=== PATIENT | male | born 1980 | race Hispanic/Latino ===

== ENCOUNTER 2017-02-03 12:33 | Emergency (ER) | payer SELFPAY ==
[2017-02-03] MEDS ORDERED: CLEOCIN 600 MG/50 mL 600 MG/50 ML BAG IV ONE (14:37)
--- NOTE | 2017-02-03 14:40 | Emergency Department Report ---
- General Chief Complaint: Dental/Oral Stated Complaint: SORE THROAT/MIKE Time Seen by Provider: 02/03/17 14:14 Source: patient, family Mode of arrival: Ambulatory Limitations: No Limitations - History of Present Illness MD Complaint: sore throat -: Sudden Severity: moderate Consistency: constant Improves With: nothing Worsens With: nothing Associated Symptoms: sore throat, shortness of breath (asthma ), hoarseness ( quiet per ). denies: fever, chills, myalgias, diaphoresis, headache, rhinorrhea, nasal congestion, stiff neck, cough, chest pain, abdominal pain, nausea, vomiting, diarrhea, dysuria, rash, confusion, right sweats, weight loss , epistaxis, ear pain Treatments Prior to Arrival: Acetaminophen, Ibuprofen - Related Data Previous Rx's Medication Instructions Recorded Last Taken Type ALBUTEROL Inhaler [ProAir HFA 2 puff IH QID PRN #1 inhalation 02/03/17 Unknown Rx Inhaler] Clindamycin [Clindamycin CAP] 300 mg PO Q6H #40 capsule 02/03/17 Unknown Rx traMADol [Ultram] 50 mg PO Q6HR PRN #10 tablet 02/03/17 Unknown Rx Allergies Allergy/AdvReac Type Severity Reaction Status Date / Time Penicillins Allergy Unknown Verified 02/03/17 13:48 ED Review of Systems ROS: Stated complaint: SORE THROAT/MIKE Other details as noted in HPI Comment: Unobtainable due to pts medical conditions Constitutional: no symptoms reported, see HPI. denies: chills Eyes: as per HPI. denies: eye pain ENT: as per HPI, throat pain, dental pain. denies: ear pain, hearing loss, epistaxis, congestion Respiratory: no symptoms reported, see HPI, shortness of breath, wheezing. denies: cough, orthopnea, SOB with exertion, SOB at rest, stridor Cardiovascular: as per HPI, chest pain. denies: palpitations, dyspnea on exertion, orthopnea Endocrine: no symptoms reported, see HPI. denies: excessive sweating, flushing , intolerance to cold, intolerance to heat Gastrointestinal: as per HPI. denies: abdominal pain, nausea, vomiting Genitourinary: as per HPI. denies: urgency, dysuria Musculoskeletal: as per HPI. denies: back pain Skin: as per HPI. denies: rash, lesions Neurological: as per HPI. denies: headache, weakness Psychiatric: as per HPI. denies: anxiety, depression Hematological/Lymphatic: as per HPI. denies: easy bleeding ED Past Medical Hx - Past Medical History Previous Medical History?: No Hx Asthma: Yes Additional medical history: Bronchitis and sinusitis - Surgical History Hx Open Heart Surgery: Yes (age 10 months) - Social History Smoking Status: Never Smoker Substance Use Type: Marijuana - Medications Home Medications: Home Medications Medication Instructions Recorded Confirmed Last Taken Type ALBUTEROL Inhaler [ProAir HFA 2 puff IH QID PRN #1 inhalation 02/03/17 Unknown Rx Inhaler] Clindamycin [Clindamycin CAP] 300 mg PO Q6H #40 capsule 02/03/17 Unknown Rx traMADol [Ultram] 50 mg PO Q6HR PRN #10 tablet 02/03/17 Unknown Rx ED Physical Exam - General Limitations: No Limitations General appearance: alert, in no apparent distress - Head Head exam: Present: atraumatic - Eye Eye exam: Present: normal appearance, PERRL. Absent: scleral icterus, conjunctival injection, nystagmus, periorbital swelling, periorbital tenderness - ENT ENT exam: Present: normal orophraynx (nothing visible), mucous membranes moist, TM's normal bilaterally, other (bilateral submand lymphadenopathy). Absent: mucous membranes dry - Neck Neck exam: Present: normal inspection, full ROM, lymphadenopathy. Absent: tenderness, meningismus, thyromegaly - Respiratory Respiratory exam: Present: wheezes (b upper) - Cardiovascular Cardiovascular Exam: Present: regular rate - GI/Abdominal GI/Abdominal exam: Present: soft - Rectal Rectal exam: Present: deferred - Extremities Exam Extremities exam: Present: normal inspection, full ROM. Absent: tenderness - Back Exam Back exam: Present: normal inspection, full ROM. Absent: tenderness, CVA tenderness (R) - Neurological Exam Neurological exam: Present: alert, oriented X3, CN II-XII intact, normal gait, reflexes normal. Absent: motor sensory deficit - Psychiatric Psychiatric exam: Present: normal affect, normal mood - Skin Skin exam: Present: warm, dry, intact. Absent: rash ED Course Vital Signs 02/03/17 02/03/17 13:48 15:25 Temperature 98.7 F Pulse Rate 73 Respiratory 18 18 Rate Blood Pressure 120/85 O2 Sat by Pulse 100 Oximetry - Reevaluation(s) Reevaluation #1: 02/03/17 to er today w acute onset sore throat taking po controlling secretion b upper lobe wheezing asthma no fever vss appears that he does not feel well dental caries known diffuse caries see exam labs noted medicated Reevaluation #2: 02/03/17 18:04 CT noted RT Tx Discussed with Dr. Orlin King home w dc poc and outpt follow up ED Medical Decision Making - Lab Data Result diagrams: 02/03/17 14:54 02/03/17 14:36 - Radiology Data Radiology results: report reviewed, image reviewed Discussed with Dr. Orlin King home POC reviewed - Differential Diagnosis ro abscess Critical care attestation.: If time is entered above; I have spent that time in minutes in the direct care of this critically ill patient, excluding procedure time. ED Disposition Clinical Impression: Dental caries, Lymphadenopathy, Asthma Disposition: DC- TO HOME OR SELFCARE Is pt being admited?: No Does the pt Need Aspirin: No Condition: Stable Instructions: Asthma (ED), Dental Caries (ED) Additional Instructions: follow up as discussed meds as ordered Prescriptions: ALBUTEROL Inhaler [ProAir HFA Inhaler] 2 puff IH QID PRN #1 inhalation PRN Reason: Shortness Of Breath Clindamycin [Clindamycin CAP] 300 mg PO Q6H #40 capsule traMADol [Ultram] 50 mg PO Q6HR PRN #10 tablet PRN Reason: Pain Referrals: PRIMARY MD ANGELICA [Primary Care Provider] - 3-5 Days [facility] [Outside] - 3-5 Days [facility] [Outside] - 3-5 Days MONA EDMONDS MD [Staff Physician] - 3-5 Days Time of Disposition: 17:49
[2017-02-03] MEDS ORDERED: NORCO 5/325 PO ONE (15:00)
[2017-02-03 15:15] LABS: Basophils % (Auto) 0.9 % (0.0-1.8); Eosinophils % (Auto) 5.5 % (0.0-4.3); Hemoglobin 16.7 gm/dl (11.8-15.2); Mean Corpuscular HGB Conc 33 % (32-34); Mean Corpuscular Hemoglobin 31 pg (28-32); Mean Corpuscular Volume 94 fl (84-94); Platelet Count 298 K/mm3 (140-440); Red Blood Count 5.34 M/mm3 (3.65-5.03); White Blood Count 8.9 K/mm3 (4.5-11.0)
[2017-02-03 15:31] LABS: Alanine Aminotransferase 12 units/L (7-56); Albumin 4.8 g/dL (3.9-5); Albumin/Globulin Ratio 1.7 %; Alkaline Phosphatase 52 units/L (35-129); Anion Gap 19 mmol/L; BUN/Creatinine Ratio 14.44; Blood Urea Nitrogen 13 mg/dL (9-20); Calcium 9.3 mg/dL (8.4-10.2); Carbon Dioxide 25 mmol/L (22-30); Chloride 101.7 mmol/L (98-107); Glucose 94 mg/dL (75-100); Potassium 4.2 mmol/L (3.6-5.0); Sodium 141 mmol/L (137-145); Total Protein 7.7 g/dL (6.3-8.2)
[2017-02-03] MEDS ORDERED: NACL ONE (16:02)
--- NOTE | 2017-02-03 16:49 | Cat Scan Report ---
CT NECK WITH CONTRAST INDICATION: Difficulty swallowing. History of caries and enlarged submandibular node. COMPARISON: None similar. FINDINGS: Neck CT performed following IV contrast. Axial, sagittal and coronal CT reconstructions demonstrate mild fluid/debris in the valleculae. Normal epiglottis. Piriform sinuses appear dilated while bilateral prominence/widening of the laryngeal ventricles not excluded. Aryepiglottic folds may also be thickened. Remainder larynx appears unremarkable. Preserved parapharyngeal fat pad. Few small neck lymph nodes, not size significant. Normal imaged salivary glands. Unremarkable eye globes. Normal visualized intracranial appearance. Clear aerated paranasal sinuses and temporal bone/mastoid air cells. Right mastoid tip not well pneumatized. Patent major neck vessels. Normal thyroid. Clear lung apices. Mild C6 and C7 degenerative spurring. Dental disease noted, including an approximately 9 mm right mandibular periapical cyst, axial image 84, series 2. CONCLUSION: 1. CT findings not excluded for vocal cord palsy/paralysis in an appropriate setting. Please correlate. 2. Various other findings, including dental disease and lower cervical spondylosis, amongst others, as above. Thank you for the opportunity to participate in this patient's care.
[2017-02-03] MEDS ORDERED: DUONEB *Not for PRN Use IH ONE (17:56)
[2017-02-03 18:05] VITALS: BP 120/89
== END 2017-02-03 19:02 | disposition home or self-care (01) ==
LOC: ED 12:33
DX: J45.909 Unspecified asthma, uncomplicated (principal); R59.1 Generalized enlarged lymph nodes; K02.9 Dental caries, unspecified; F12.10 Cannabis abuse, uncomplicated
CPT/HCPCS: 36415; 70491; 80053; 85025; 96365; 99284; Q9967

== ENCOUNTER 2017-02-15 13:35 | Emergency (ER) | payer SELFPAY ==
[2017-02-15] MEDS ORDERED: DECADRON IM ONE (20:06)
[2017-02-15] MEDS ORDERED: DUONEB *Not for PRN Use IH ONE (20:06)
[2017-02-15] MEDS ORDERED: PHENERGAN/CODEINE 6.25-10 MG/5ML PO ONE (21:19)
--- NOTE | 2017-02-15 22:53 | XRay Report ---
FINAL REPORT EXAM: XR CHEST ROUTINE 2V HISTORY: wheezing, cough TECHNIQUE: Two view chest PA and lateral PRIORS: None. FINDINGS: Cardiac and mediastinal contours are unremarkable. No focal pulmonary infiltrate is identified. No pleural fluid collection seen. Pulmonary vasculature is unremarkable. IMPRESSION: Negative two-view chest
--- NOTE | 2017-02-15 23:51 | Emergency Department Report ---
Minor Respiratory - HPI Chief Complaint: Upper Respiratory Infection Stated Complaint: SORE THROAT/COUGH Duration: 1 week Pain Location: Throat Severity: mild Minor Respiratory: Yes Sore Throat, Yes Able to Tolerate Fluids, Yes Cough, Yes Shortness of Breath (wheezing), No Rhinorrhea, No Ear Pain, No Sick Contacts, No Hemoptysis, No Chest Pain, No Fever Other History: 36 year old male presents to ED with SOB, wheezing, cough, sore throat x1 week. patient states he has 1 day left of RX clindamycin for throat abscess previously treated in ED. patient states he has began to develop wheezing, cough and SOB in the past couple of days. patient states he has history of chronic bronchitis and sinusitis and has hx of COPD. patient is stable, neurologically intact and in no acute distress. patient states he was referred to [facility] for follow up appt but could not get a ride to go there. ED Review of Systems ROS: Stated complaint: SORE THROAT/COUGH Other details as noted in HPI Constitutional: denies: chills, fever Eyes: denies: eye pain, eye discharge, vision change ENT: throat pain. denies: ear pain Respiratory: cough, shortness of breath, wheezing Cardiovascular: denies: chest pain, palpitations Endocrine: no symptoms reported Gastrointestinal: denies: abdominal pain, nausea, vomiting, diarrhea Genitourinary: denies: urgency, dysuria Musculoskeletal: denies: back pain, joint swelling, arthralgia Skin: denies: rash, lesions Neurological: denies: headache, weakness, numbness, paresthesias, confusion, abnormal gait, vertigo Psychiatric: denies: anxiety, depression Hematological/Lymphatic: denies: easy bleeding, easy bruising ED Past Medical Hx - Past Medical History Previous Medical History?: Yes Hx Asthma: Yes Additional medical history: Bronchitis and sinusitis - Surgical History Past Surgical History?: Yes Hx Open Heart Surgery: Yes (age 10 months) - Social History Smoking Status: Current Some Day Smoker Substance Use Type: Alcohol - Medications Home Medications: Home Medications Medication Instructions Recorded Confirmed Last Taken Type ALBUTEROL Inhaler [ProAir HFA 2 puff IH QID PRN #1 inhalation 02/03/17 Unknown Rx Inhaler] Clindamycin [Clindamycin CAP] 300 mg PO Q6H #40 capsule 02/03/17 Unknown Rx traMADol [Ultram] 50 mg PO Q6HR PRN #10 tablet 02/03/17 Unknown Rx Levofloxacin [Levaquin TAB] 500 mg PO QDAY #5 tablet 02/15/17 Unknown Rx Meloxicam [Mobic] 7.5 mg PO QDAY #5 tablet 02/15/17 Unknown Rx Minor Respiratory Exam - Exam General: Vital signs noted. No distress. Alert and acting appropriately. HEENT: Yes Moist Mucous Membranes, Yes Frontal Tenderness, Yes Maxillary Tenderness, No Pharyngeal Erythema, No Pharyngeal Exudates, No Rhinorrhea, No Conjuctival Injection Ear: Neither TM Bulge, Neither TM Erythema, Neither EAC Pain, Neither EAC Discharge Neck: Yes Supple, No Adenopathy Lungs: Yes Good Air Exchange, Yes Wheezes, Yes Cough, No Ronchi, No Stridor, No Labored Respirations, No Retractions, No Use of Accessory Muscles, No Other Abnormal Lung Sounds Heart: Yes Regular, No Murmur Abdomen: Yes Normal Bowel Sounds, No Tenderness, No Peritoneal Signs Neurologic: Alert and oriented, no deficits. Musculoskeletal: Unremarkable. ED Course Vital Signs 02/15/17 02/15/17 02/15/17 15:11 16:25 19:15 Temperature 98.1 F Pulse Rate 86 81 Respiratory 16 18 19 Rate Blood Pressure 124/81 Blood Pressure 143/79 [Left] O2 Sat by Pulse 96 100 98 Oximetry ED Medical Decision Making - Lab Data blood cultures pending negative rapid strep - Radiology Data Radiology results: report reviewed Chest xray negative two view chest - Medical Decision Making 36 year old male presents to ED with cough, sore throat, wheezing, SOB. patient is stable, neurologically intact and in no acute distress. patient has normal O2 saturation and no wheezing present on re examination after IM steroids and duoneb breathing treatment. patient has normal chest xray. patient will be placed on PO levaquin for complicated bronchitis. blood cultures pending. patient has pro air inhaler already for wheezing, SOB symptoms. patient understands he needs to still follow up with previous appt at [facility] as previously discussed and scheduled. Critical care attestation.: If time is entered above; I have spent that time in minutes in the direct care of this critically ill patient, excluding procedure time. ED Disposition Clinical Impression: Sinusitis, chronic Qualifiers: Sinusitis location: frontal Qualified Code(s): J32.1 - Chronic frontal sinusitis Bronchitis, chronic Qualifiers: Chronic bronchitis type: unspecified Qualified Code(s): J42 - Unspecified chronic bronchitis Disposition: - TO HOME OR SELFCARE Is pt being admited?: No Does the pt Need Aspirin: No Condition: Stable Instructions: Acute Bronchitis (ED), Chronic Bronchitis (ED) Prescriptions: Levofloxacin [Levaquin TAB] 500 mg PO QDAY #5 tablet Meloxicam [Mobic] 7.5 mg PO QDAY #5 tablet Referrals: PRIMARY CARE, [Primary Care Provider] - 3-5 Days
[2017-02-16 00:14] VITALS: BP 127/82
== END 2017-02-15 23:55 | disposition home or self-care (01) ==
LOC: ED 13:35
DX: J32.1 Chronic frontal sinusitis (principal); J32.0 Chronic maxillary sinusitis; J40 Bronchitis, not specified as acute or chronic; F17.210 Nicotine dependence, cigarettes, uncomplicated; J44.9 Chronic obstructive pulmonary disease, unspecified
CPT/HCPCS: 36415; 71020; 87040; 87116; 87430; 96372; 99283; J1100

== ENCOUNTER 2017-09-06 15:29 | Emergency (ER) | payer SELFPAY ==
[2017-09-06 15:41] VITALS: BP 119/77
[2017-09-06] MEDS ORDERED: DECADRON IM ONE (18:01)
[2017-09-06] MEDS ORDERED: TESSALON PERLES PO ONE (18:01)
[2017-09-06] MEDS ORDERED: DUONEB *Not for PRN Use IH ONE (18:01)
[2017-09-06] MEDS ORDERED: MOTRIN PO ONE (18:01)
--- NOTE | 2017-09-06 18:03 | Emergency Department Report ---
- General Chief Complaint: Upper Respiratory Infection Stated Complaint: FLU LIKE SYMPTOMS Time Seen by Provider: 09/06/17 15:57 Source: patient Mode of arrival: Ambulatory Limitations: No Limitations - History of Present Illness Initial Comments: This is a 36-year-old male nontoxic, well nourished in appearance, no acute signs of distress presents to the ED with c/o of productive cough, wheezing, body aches, rhinorrhea, nasal congestion x3 days. Patient describes productive cough as yellow mucus production. Patient denies any sick contact. Patient denies any recent travels, long car, recent hospital stays. Patient denies any calf pain or calf tenderness. Patient denies any chest pain, short of breath, fever, chills, nausea, vomiting, hemoptysis, numbness, tingling, headache or stiff neck. Stated allergies to PCN. Past medical history includes asthma, bronchitis and sinusitis. MD Complaint: cough, rhinorrhea, nasal congestion, other (wheezing) -: days(s) (3) Severity: mild Severity scale (0 -10): 8 Quality: aching Consistency: constant Improves With: nothing Worsens With: nothing Associated Symptoms: rhinorrhea, nasal congestion, cough. denies: fever, chills , myalgias, diaphoresis, headache, sore throat, stiff neck, chest pain, shortness of breath, abdominal pain, nausea, vomiting, diarrhea, dysuria, rash, confusion, right sweats, weight loss, epistaxis, hoarseness, ear pain Treatments Prior to Arrival: none - Related Data Previous Rx's Medication Instructions Recorded Last Taken Type ALBUTEROL Inhaler [ProAir HFA 2 puff IH QID PRN #1 inhalation 02/03/17 Unknown Rx Inhaler] Clindamycin [Clindamycin CAP] 300 mg PO Q6H #40 capsule 02/03/17 Unknown Rx traMADol [Ultram] 50 mg PO Q6HR PRN #10 tablet 02/03/17 Unknown Rx Levofloxacin [Levaquin TAB] 500 mg PO QDAY #5 tablet 02/15/17 Unknown Rx Meloxicam [Mobic] 7.5 mg PO QDAY #5 tablet 02/15/17 Unknown Rx ALBUTEROL Inhaler [ProAir HFA 2 puff IH QID PRN #1 inhalation 04/01/17 Unknown Rx Inhaler] Azithromycin [Zithromax Z-MARGUERITE] 250 mg PO DAILY #6 tab 04/01/17 Unknown Rx Benzonatate [Tessalon Perles] 100 mg PO Q8HR PRN #30 capsule 04/01/17 Unknown Rx predniSONE [Deltasone] 40 mg PO QDAY #10 tab 04/01/17 Unknown Rx ALBUTEROL Inhaler [ProAir HFA 2 puff IH QID PRN #1 inhalation 09/06/17 Unknown Rx Inhaler] Azithromycin [Zithromax Z-MARGUERITE] 250 mg PO DAILY #6 tablet 09/06/17 Unknown Rx Benzonatate [Tessalon Perle] 100 mg PO Q6H PRN #20 capsule 09/06/17 Unknown Rx Ibuprofen [Motrin] 600 mg PO Q8H PRN #30 tablet 09/06/17 Unknown Rx Prednisone [predniSONE 10 mg 10 mg PO .TAPER #1 tab.ds.pk 09/06/17 Unknown Rx (6-Day Pack, 21 Tabs)] Allergies Allergy/AdvReac Type Severity Reaction Status Date / Time Penicillins Allergy Unknown Verified 02/03/17 13:48 ED Review of Systems ROS: Stated complaint: FLU LIKE SYMPTOMS Other details as noted in HPI Constitutional: denies: chills, fever Eyes: denies: eye pain, eye discharge, vision change ENT: denies: ear pain, throat pain Respiratory: cough, wheezing. denies: shortness of breath Cardiovascular: denies: chest pain, palpitations Endocrine: no symptoms reported Gastrointestinal: denies: abdominal pain, nausea, diarrhea Genitourinary: denies: urgency, dysuria Musculoskeletal: denies: back pain, joint swelling, arthralgia Skin: denies: rash, lesions Neurological: denies: headache, weakness, paresthesias Psychiatric: denies: anxiety, depression Hematological/Lymphatic: denies: easy bleeding, easy bruising ED Past Medical Hx - Past Medical History Previous Medical History?: Yes Hx Asthma: Yes Additional medical history: Bronchitis and sinusitis - Surgical History Past Surgical History?: Yes Hx Open Heart Surgery: Yes (age 10 months) - Social History Smoking Status: Current Some Day Smoker Substance Use Type: Alcohol, Marijuana - Medications Home Medications: Home Medications Medication Instructions Recorded Confirmed Last Taken Type ALBUTEROL Inhaler [ProAir HFA 2 puff IH QID PRN #1 inhalation 02/03/17 Unknown Rx Inhaler] Clindamycin [Clindamycin CAP] 300 mg PO Q6H #40 capsule 02/03/17 Unknown Rx traMADol [Ultram] 50 mg PO Q6HR PRN #10 tablet 02/03/17 Unknown Rx Levofloxacin [Levaquin TAB] 500 mg PO QDAY #5 tablet 02/15/17 Unknown Rx Meloxicam [Mobic] 7.5 mg PO QDAY #5 tablet 02/15/17 Unknown Rx ALBUTEROL Inhaler [ProAir HFA 2 puff IH QID PRN #1 inhalation 04/01/17 Unknown Rx Inhaler] Azithromycin [Zithromax Z-MARGUERITE] 250 mg PO DAILY #6 tab 04/01/17 Unknown Rx Benzonatate [Tessalon Perles] 100 mg PO Q8HR PRN #30 capsule 04/01/17 Unknown Rx predniSONE [Deltasone] 40 mg PO QDAY #10 tab 04/01/17 Unknown Rx ALBUTEROL Inhaler [ProAir HFA 2 puff IH QID PRN #1 inhalation 09/06/17 Unknown Rx Inhaler] Azithromycin [Zithromax Z-MARGUERITE] 250 mg PO DAILY #6 tablet 09/06/17 Unknown Rx Benzonatate [Tessalon Perle] 100 mg PO Q6H PRN #20 capsule 09/06/17 Unknown Rx Ibuprofen [Motrin] 600 mg PO Q8H PRN #30 tablet 09/06/17 Unknown Rx Prednisone [predniSONE 10 mg 10 mg PO .TAPER #1 tab.ds.pk 09/06/17 Unknown Rx (6-Day Pack, 21 Tabs)] ED Physical Exam - General Limitations: No Limitations General appearance: alert, in no apparent distress - Head Head exam: Present: atraumatic, normocephalic - Eye Eye exam: Present: normal appearance Pupils: Present: normal accommodation - ENT ENT exam: Present: normal exam, mucous membranes moist - Neck Neck exam: Present: normal inspection, full ROM. Absent: tenderness, meningismus - Respiratory Respiratory exam: Present: normal lung sounds bilaterally, wheezes (bilateral upper and lower lobes). Absent: respiratory distress, rales, rhonchi, stridor, chest wall tenderness, accessory muscle use, decreased breath sounds, prolonged expiratory - Cardiovascular Cardiovascular Exam: Present: regular rate, normal rhythm, normal heart sounds. Absent: bradycardia, tachycardia, irregular rhythm, systolic murmur, diastolic murmur, rubs, gallop - GI/Abdominal GI/Abdominal exam: Present: soft, normal bowel sounds - Rectal Rectal exam: Present: deferred - Extremities Exam Extremities exam: Present: normal inspection, full ROM, normal capillary refill - Back Exam Back exam: Present: normal inspection, full ROM - Neurological Exam Neurological exam: Present: alert, oriented X3, normal gait - Psychiatric Psychiatric exam: Present: normal affect, normal mood - Skin Skin exam: Present: warm, dry, intact, normal color. Absent: rash ED Course Vital Signs 09/06/17 15:39 Temperature 98.2 F Pulse Rate 87 Respiratory 18 Rate Blood Pressure 119/77 O2 Sat by Pulse 96 Oximetry - Reevaluation(s) Reevaluation #1: 09/06/17 18:15 Patient is speaking in full sentences with no signs of distress noted. - Consultations Consultation #1: 09/06/17 18:16 Patient has been consulted with Dr. Kapoor about patient history, physical exam , and labs and examined and screened patient and agrees to ED plan of care and discharge plan of care. ED Medical Decision Making - Medical Decision Making This is a 55-year-old female that presents with bronchitis. Patient is stable and was examined by me. Chest x-ray has been obtained and dictated by radiologist with normal exam. Patient is notified of x-ray results with no questions noted. Due to patient having symptoms of bronchitis and worsening I will treat patient empirically with zpak. Patient was instructed to increase hydration, rest and take Motrin for fever episodes. Patient received tesslone perrls, DuoNeb, Decadron in the ED. Patient stated symptoms have simply subsiding and wheezing upon auscultation has subsided. Vitals stable. Patient is nonfebrile and normal heart rate. Patient was instructed Follow-up with a primary care doctor in 3-5 days or if symptoms worsen and continue return to emergency room as soon as possible. At time time of discharge, the patient does not seem toxic or ill in appearance. No acute signs of distress noted. Patient agrees to discharge treatment plan of care. No further questions noted by the patient. Critical care attestation.: If time is entered above; I have spent that time in minutes in the direct care of this critically ill patient, excluding procedure time. ED Disposition Clinical Impression: Bronchitis Disposition: DC-01 TO HOME OR SELFCARE Is pt being admited?: No Does the pt Need Aspirin: No Condition: Stable Instructions: Acute Bronchitis (ED), Azithromycin (By mouth), Prednisone (By mouth), Albuterol (By breathing), Benzonatate (By mouth) Additional Instructions: Follow-up with a primary care doctor in 3-5 days or if symptoms worsen and continue return to emergency room as soon as possible. Prescriptions: ALBUTEROL Inhaler [ProAir HFA Inhaler] 2 puff IH QID PRN #1 inhalation PRN Reason: Shortness Of Breath Azithromycin [Zithromax Z-MARGUERITE] 250 mg PO DAILY #6 tablet Benzonatate [Tessalon Perle] 100 mg PO Q6H PRN #20 capsule PRN Reason: Cough Ibuprofen [Motrin] 600 mg PO Q8H PRN #30 tablet PRN Reason: Pain Prednisone [predniSONE 10 mg (6-Day Pack, 21 Tabs)] 10 mg PO .TAPER #1 tab.ds.pk Referrals: PRIMARY CAREMD [Primary Care Provider] - 3-5 Days TERRIE NELSON MD [Staff Physician] - 3-5 Days [facility] [Outside] - 3-5 Days [facility] [Outside] - 3-5 Days Forms: Work/School Release Form(ED)
--- NOTE | 2017-09-06 18:17 | XRay Report ---
FINAL REPORT EXAM: XR CHEST ROUTINE 2V HISTORY: cough TECHNIQUE: PA and lateral views of the chest PRIORS: CXR 02/15/2017 FINDINGS: Lines, tubes, and devices: N/A Lungs and pleura: Trachea is normal in position. Lungs are clear of infiltrate, pleural effusion, vascular congestion, or pneumothorax. No change. Cardiomediastinal silhouette: Cardiac and mediastinal silhouettes are unremarkable. Other: Bony structures are intact. IMPRESSION: No acute cardiopulmonary process seen. No change.
== END 2017-09-06 18:39 | disposition home or self-care (01) ==
LOC: ED 15:29
DX: J40 Bronchitis, not specified as acute or chronic (principal); F17.200 Nicotine dependence, unspecified, uncomplicated; F12.10 Cannabis abuse, uncomplicated; Z88.0 Allergy status to penicillin
CPT/HCPCS: 71046; 94640; 96372; 99283; J1100

== ENCOUNTER 2018-01-13 17:31 | Emergency (ER) | payer SELFPAY ==
[2018-01-13 18:24] VITALS: BP 125/75
[2018-01-13] MEDS ORDERED: CLEOCIN PO ONE (21:32)
[2018-01-13] MEDS ORDERED: NORCO 7.5/325 PO ONE (21:32)
--- NOTE | 2018-01-13 21:36 | Emergency Department Report ---
ED ENT HPI - General Chief complaint: Dental/Oral Stated complaint: SORE THROAT/ABSCESS TOOTH Time Seen by Provider: 01/13/18 21:30 Source: patient Mode of arrival: Ambulatory Limitations: No Limitations - History of Present Illness Initial comments: 37 0 female comes in complaint of toothache to the right side as well as swelling to his right side of his face and headache. Patient reports that this is been going on for 3 days. He reports he has been doing over-the- counter ibuprofen which she says has helped some but now is causing him to have abdominal pains. Patient reports that he has also tried Goody powders as well it is irritating his stomach. Patient is aware that he has had bad tooth in his mouth. Patient reports is allergic to penicillin. MD complaint: tooth pain -: days(s) (3) Location: tooth # (3) Severity scale (0 -10): 8 Quality: stabbing, aching, sharp Consistency: constant Improves with: none Worsens with: eating Context- Dental: history of dental caries, poor dental care Associated Symptoms: gum swelling, toothache - Related Data Previous Rx's Medication Instructions Recorded Last Taken Type ALBUTEROL Inhaler [ProAir HFA 2 puff IH QID PRN #1 inhalation 02/03/17 Unknown Rx Inhaler] Clindamycin [Clindamycin CAP] 300 mg PO Q6H #40 capsule 02/03/17 Unknown Rx Meloxicam [Mobic] 7.5 mg PO QDAY #5 tablet 02/15/17 Unknown Rx levoFLOXacin [Levaquin TAB] 500 mg PO QDAY #5 tablet 02/15/17 Unknown Rx ALBUTEROL Inhaler [ProAir HFA 2 puff IH QID PRN #1 inhalation 04/01/17 Unknown Rx Inhaler] Azithromycin [Zithromax Z-MARGUERITE] 250 mg PO DAILY #6 tab 04/01/17 Unknown Rx Benzonatate [Tessalon Perles] 100 mg PO Q8HR PRN #30 capsule 04/01/17 Unknown Rx predniSONE [Deltasone] 40 mg PO QDAY #10 tab 04/01/17 Unknown Rx ALBUTEROL Inhaler [ProAir HFA 2 puff IH QID PRN #1 inhalation 09/06/17 Unknown Rx Inhaler] Azithromycin [Zithromax Z-MARGUERITE] 250 mg PO DAILY #6 tablet 09/06/17 Unknown Rx Benzonatate [Tessalon Perle] 100 mg PO Q6H PRN #20 capsule 09/06/17 Unknown Rx Ibuprofen [Motrin] 600 mg PO Q8H PRN #30 tablet 09/06/17 Unknown Rx Prednisone [predniSONE 10 mg 10 mg PO .TAPER #1 tab.ds.pk 09/06/17 Unknown Rx (6-Day Pack, 21 Tabs)] Clindamycin [Clindamycin CAP] 300 mg PO Q8H #30 capsule 01/13/18 Unknown Rx traMADol [Ultram 50 MG tab] 50 mg PO Q6HR PRN #12 tablet 01/13/18 Unknown Rx Allergies Allergy/AdvReac Type Severity Reaction Status Date / Time Penicillins Allergy Unknown Verified 02/03/17 13:48 ED Dental HPI - General Chief complaint: Dental/Oral Stated complaint: SORE THROAT/ABSCESS TOOTH Time Seen by Provider: 01/13/18 21:30 Source: patient Mode of arrival: Ambulatory Limitations: No Limitations - Related Data Previous Rx's Medication Instructions Recorded Last Taken Type ALBUTEROL Inhaler [ProAir HFA 2 puff IH QID PRN #1 inhalation 02/03/17 Unknown Rx Inhaler] Clindamycin [Clindamycin CAP] 300 mg PO Q6H #40 capsule 02/03/17 Unknown Rx Meloxicam [Mobic] 7.5 mg PO QDAY #5 tablet 02/15/17 Unknown Rx levoFLOXacin [Levaquin TAB] 500 mg PO QDAY #5 tablet 02/15/17 Unknown Rx ALBUTEROL Inhaler [ProAir HFA 2 puff IH QID PRN #1 inhalation 04/01/17 Unknown Rx Inhaler] Azithromycin [Zithromax Z-MARGUERITE] 250 mg PO DAILY #6 tab 04/01/17 Unknown Rx Benzonatate [Tessalon Perles] 100 mg PO Q8HR PRN #30 capsule 04/01/17 Unknown Rx predniSONE [Deltasone] 40 mg PO QDAY #10 tab 04/01/17 Unknown Rx ALBUTEROL Inhaler [ProAir HFA 2 puff IH QID PRN #1 inhalation 09/06/17 Unknown Rx Inhaler] Azithromycin [Zithromax Z-MARGUERITE] 250 mg PO DAILY #6 tablet 09/06/17 Unknown Rx Benzonatate [Tessalon Perle] 100 mg PO Q6H PRN #20 capsule 09/06/17 Unknown Rx Ibuprofen [Motrin] 600 mg PO Q8H PRN #30 tablet 09/06/17 Unknown Rx Prednisone [predniSONE 10 mg 10 mg PO .TAPER #1 tab.ds.pk 09/06/17 Unknown Rx (6-Day Pack, 21 Tabs)] Clindamycin [Clindamycin CAP] 300 mg PO Q8H #30 capsule 01/13/18 Unknown Rx traMADol [Ultram 50 MG tab] 50 mg PO Q6HR PRN #12 tablet 01/13/18 Unknown Rx Allergies Allergy/AdvReac Type Severity Reaction Status Date / Time Penicillins Allergy Unknown Verified 02/03/17 13:48 ED Review of Systems ROS: Stated complaint: SORE THROAT/ABSCESS TOOTH Other details as noted in HPI ENT: dental pain Neurological: headache ED Past Medical Hx - Past Medical History Hx Asthma: Yes Additional medical history: Bronchitis and sinusitis - Surgical History Hx Open Heart Surgery: Yes (age 10 months) - Social History Smoking Status: Never Smoker Substance Use Type: None - Medications Home Medications: Home Medications Medication Instructions Recorded Confirmed Last Taken Type ALBUTEROL Inhaler [ProAir HFA 2 puff IH QID PRN #1 inhalation 02/03/17 Unknown Rx Inhaler] Clindamycin [Clindamycin CAP] 300 mg PO Q6H #40 capsule 02/03/17 Unknown Rx Meloxicam [Mobic] 7.5 mg PO QDAY #5 tablet 02/15/17 Unknown Rx levoFLOXacin [Levaquin TAB] 500 mg PO QDAY #5 tablet 02/15/17 Unknown Rx ALBUTEROL Inhaler [ProAir HFA 2 puff IH QID PRN #1 inhalation 04/01/17 Unknown Rx Inhaler] Azithromycin [Zithromax Z-MARGUERITE] 250 mg PO DAILY #6 tab 04/01/17 Unknown Rx Benzonatate [Tessalon Perles] 100 mg PO Q8HR PRN #30 capsule 04/01/17 Unknown Rx predniSONE [Deltasone] 40 mg PO QDAY #10 tab 04/01/17 Unknown Rx ALBUTEROL Inhaler [ProAir HFA 2 puff IH QID PRN #1 inhalation 09/06/17 Unknown Rx Inhaler] Azithromycin [Zithromax Z-MARGUERITE] 250 mg PO DAILY #6 tablet 09/06/17 Unknown Rx Benzonatate [Tessalon Perle] 100 mg PO Q6H PRN #20 capsule 09/06/17 Unknown Rx Ibuprofen [Motrin] 600 mg PO Q8H PRN #30 tablet 09/06/17 Unknown Rx Prednisone [predniSONE 10 mg 10 mg PO .TAPER #1 tab.ds.pk 09/06/17 Unknown Rx (6-Day Pack, 21 Tabs)] Clindamycin [Clindamycin CAP] 300 mg PO Q8H #30 capsule 01/13/18 Unknown Rx traMADol [Ultram 50 MG tab] 50 mg PO Q6HR PRN #12 tablet 01/13/18 Unknown Rx ED Physical Exam - General Limitations: No Limitations General appearance: alert, in no apparent distress - Head Head exam: Present: atraumatic, normocephalic - Eye Eye exam: Present: EOMI - ENT ENT exam: Present: other (right-sided facial swelling with tenderness) - Expanded ENT Exam Expanded Teeth exam: Present: dental caries, dental tenderness # (3), gingival enlargement - Neck Neck exam: Present: full ROM. Absent: lymphadenopathy, thyromegaly - Respiratory Respiratory exam: Present: normal lung sounds bilaterally. Absent: respiratory distress - Cardiovascular Cardiovascular Exam: Present: regular rate, normal rhythm. Absent: systolic murmur, diastolic murmur, rubs, gallop ED Course Vital Signs 01/13/18 18:21 Temperature 98.6 F Pulse Rate 95 H Respiratory 18 Rate Blood Pressure 125/75 O2 Sat by Pulse 95 Oximetry ED Medical Decision Making - Medical Decision Making Patient has been evaluated by this provider in fast track. Patient will be given a [place] 7.5 mg as well as clindamycin 300 mg. We'll discharge patient on clindamycin 300 mg every 8 hours for 10 days. We'll discharge patient on tramadol for pain 50 mg every 4-6 hours as needed for pain. Referral dentistry. Critical care attestation.: If time is entered above; I have spent that time in minutes in the direct care of this critically ill patient, excluding procedure time. ED Disposition Clinical Impression: Dental abscess, Dental caries Disposition: DC-01 TO HOME OR SELFCARE Is pt being admited?: No Does the pt Need Aspirin: No Condition: Stable Instructions: Dental Abscess (ED) Additional Instructions: Please complete antibiotics as prescribed. Take pain medication as needed. And very importantly to follow up with the dentist I have listed several below for your convenience as well as give you a handout of the dentists in the community. Prescriptions: Clindamycin [Clindamycin CAP] 300 mg PO Q8H #30 capsule traMADol [Ultram 50 MG tab] 50 mg PO Q6HR PRN #12 tablet PRN Reason: Pain Referrals: PRIMARY CARE, [Primary Care Provider] - 3-5 Days Forms: Work/School Release Form(ED), Accompanied Note
== END 2018-01-13 21:55 | disposition home or self-care (01) ==
LOC: ED 17:31
DX: K04.7 Periapical abscess without sinus (principal); J45.909 Unspecified asthma, uncomplicated; Z88.0 Allergy status to penicillin
CPT/HCPCS: 99282

== ENCOUNTER 2018-01-25 11:37 | Emergency (ER) | payer SELFPAY ==
[2018-01-25 11:44] VITALS: BP 132/88
[2018-01-25] MEDS ORDERED: TESSALON PERLES PO ONE (12:56)
[2018-01-25] MEDS ORDERED: MOTRIN PO ONE (12:56)
[2018-01-25] MEDS ORDERED: DUONEB *Not for PRN Use IH ONE (12:57)
[2018-01-25] MEDS ORDERED: DECADRON IM ONE (12:57)
--- NOTE | 2018-01-25 13:02 | Emergency Department Report ---
- General Chief Complaint: Upper Respiratory Infection Stated Complaint: UPPER RESP POSS Time Seen by Provider: 01/25/18 12:52 Source: patient Mode of arrival: Ambulatory Limitations: No Limitations - History of Present Illness Initial Comments: This is a 37-year-old male nontoxic, well nourished in appearance, no acute signs of distress presents to the ED with c/o of productive cough, frontal sinus pain, body aches, rhinorrhea, nasal congestion and wheezing x2 weeks. Patient describes productive cough as yellow mucus production. Patient denies any sick contact. Patient denies any recent travels, long car, recent hospital stays. Patient denies any calf pain or calf tenderness. Patient denies any chest pain, short of breath, fever, chills, nausea, vomiting, hemoptysis, numbness, tingling, headache or stiff neck. Patient stated allergies to PCN. PMH includes asthma. MD Complaint: cough, rhinorrhea, nasal congestion, sinus pain -: week(s) (2) Severity: mild Severity scale (0 -10): 8 Quality: aching Consistency: constant Improves With: nothing Worsens With: nothing Associated Symptoms: rhinorrhea, nasal congestion, cough, other (wheezing, frontal sinus pain). denies: fever, chills, myalgias, diaphoresis, headache, sore throat, stiff neck, chest pain, shortness of breath, abdominal pain, nausea , vomiting, diarrhea, dysuria, rash, confusion, right sweats, weight loss, epistaxis, hoarseness, ear pain Treatments Prior to Arrival: none - Related Data Previous Rx's Medication Instructions Recorded Last Taken Type ALBUTEROL Inhaler (OR & NICU) 2 puff IH QID PRN #1 inhalation 02/03/17 Unknown Rx [ProAir HFA Inhaler] Clindamycin [Clindamycin CAP] 300 mg PO Q6H #40 capsule 02/03/17 Unknown Rx Meloxicam [Mobic] 7.5 mg PO QDAY #5 tablet 02/15/17 Unknown Rx levoFLOXacin [Levaquin TAB] 500 mg PO QDAY #5 tablet 02/15/17 Unknown Rx ALBUTEROL Inhaler (OR & NICU) 2 puff IH QID PRN #1 inhalation 04/01/17 Unknown Rx [ProAir HFA Inhaler] Azithromycin [Zithromax Z-MARGUERITE] 250 mg PO DAILY #6 tab 04/01/17 Unknown Rx Benzonatate [Tessalon Perles] 100 mg PO Q8HR PRN #30 capsule 04/01/17 Unknown Rx predniSONE [Deltasone] 40 mg PO QDAY #10 tab 04/01/17 Unknown Rx ALBUTEROL Inhaler (OR & NICU) 2 puff IH QID PRN #1 inhalation 09/06/17 Unknown Rx [ProAir HFA Inhaler] Azithromycin [Zithromax Z-MARGUERITE] 250 mg PO DAILY #6 tablet 09/06/17 Unknown Rx Benzonatate [Tessalon Perle] 100 mg PO Q6H PRN #20 capsule 09/06/17 Unknown Rx Ibuprofen [Motrin] 600 mg PO Q8H PRN #30 tablet 09/06/17 Unknown Rx Prednisone [predniSONE 10 mg 10 mg PO .TAPER #1 tab.ds.pk 09/06/17 Unknown Rx (6-Day Pack, 21 Tabs)] Clindamycin [Clindamycin CAP] 300 mg PO Q8H #30 capsule 01/13/18 Unknown Rx traMADol [Ultram 50 MG tab] 50 mg PO Q6HR PRN #12 tablet 01/13/18 Unknown Rx ALBUTEROL Inhaler(NF) [VENTOLIN 1 puff IH Q4-6H PRN #1 inha 01/25/18 Unknown Rx Inhaler(NF)] Azithromycin [Zithromax Z-MARGUERITE] 250 mg PO DAILY #6 tablet 01/25/18 Unknown Rx Ibuprofen [Motrin] 600 mg PO Q8H PRN #30 tablet 01/25/18 Unknown Rx Prednisone [predniSONE 10 mg 10 mg PO .TAPER #1 tab.ds.pk 01/25/18 Unknown Rx (6-Day Pack, 21 Tabs)] Allergies Allergy/AdvReac Type Severity Reaction Status Date / Time Penicillins Allergy Unknown Verified 01/25/18 11:42 ED Review of Systems ROS: Stated complaint: UPPER RESP POSS Other details as noted in HPI Constitutional: denies: chills, fever Eyes: denies: eye pain, eye discharge, vision change ENT: denies: ear pain, throat pain Respiratory: cough, wheezing. denies: shortness of breath Cardiovascular: denies: chest pain, palpitations Endocrine: no symptoms reported Gastrointestinal: denies: abdominal pain, nausea, diarrhea Genitourinary: denies: urgency, dysuria Musculoskeletal: denies: back pain, joint swelling, arthralgia Skin: denies: rash, lesions Neurological: denies: headache, weakness, paresthesias Psychiatric: denies: anxiety, depression Hematological/Lymphatic: denies: easy bleeding, easy bruising ED Past Medical Hx - Past Medical History Hx Asthma: Yes Additional medical history: Bronchitis and sinusitis - Surgical History Hx Open Heart Surgery: Yes (age 10 months) - Social History Smoking Status: Former Smoker Substance Use Type: None - Medications Home Medications: Home Medications Medication Instructions Recorded Confirmed Last Taken Type ALBUTEROL Inhaler (OR & NICU) 2 puff IH QID PRN #1 inhalation 02/03/17 Unknown Rx [ProAir HFA Inhaler] Clindamycin [Clindamycin CAP] 300 mg PO Q6H #40 capsule 02/03/17 Unknown Rx Meloxicam [Mobic] 7.5 mg PO QDAY #5 tablet 02/15/17 Unknown Rx levoFLOXacin [Levaquin TAB] 500 mg PO QDAY #5 tablet 02/15/17 Unknown Rx ALBUTEROL Inhaler (OR & NICU) 2 puff IH QID PRN #1 inhalation 04/01/17 Unknown Rx [ProAir HFA Inhaler] Azithromycin [Zithromax Z-MARGUERITE] 250 mg PO DAILY #6 tab 04/01/17 Unknown Rx Benzonatate [Tessalon Perles] 100 mg PO Q8HR PRN #30 capsule 04/01/17 Unknown Rx predniSONE [Deltasone] 40 mg PO QDAY #10 tab 04/01/17 Unknown Rx ALBUTEROL Inhaler (OR & NICU) 2 puff IH QID PRN #1 inhalation 09/06/17 Unknown Rx [ProAir HFA Inhaler] Azithromycin [Zithromax Z-MARGUERITE] 250 mg PO DAILY #6 tablet 09/06/17 Unknown Rx Benzonatate [Tessalon Perle] 100 mg PO Q6H PRN #20 capsule 09/06/17 Unknown Rx Ibuprofen [Motrin] 600 mg PO Q8H PRN #30 tablet 09/06/17 Unknown Rx Prednisone [predniSONE 10 mg 10 mg PO .TAPER #1 tab.ds.pk 09/06/17 Unknown Rx (6-Day Pack, 21 Tabs)] Clindamycin [Clindamycin CAP] 300 mg PO Q8H #30 capsule 01/13/18 Unknown Rx traMADol [Ultram 50 MG tab] 50 mg PO Q6HR PRN #12 tablet 01/13/18 Unknown Rx ALBUTEROL Inhaler(NF) [VENTOLIN 1 puff IH Q4-6H PRN #1 inha 01/25/18 Unknown Rx Inhaler(NF)] Azithromycin [Zithromax Z-MARGUERITE] 250 mg PO DAILY #6 tablet 01/25/18 Unknown Rx Ibuprofen [Motrin] 600 mg PO Q8H PRN #30 tablet 01/25/18 Unknown Rx Prednisone [predniSONE 10 mg 10 mg PO .TAPER #1 tab.ds.pk 01/25/18 Unknown Rx (6-Day Pack, 21 Tabs)] ED Physical Exam - General Limitations: No Limitations General appearance: alert, in no apparent distress - Head Head exam: Present: atraumatic, normocephalic - Eye Eye exam: Present: normal appearance Pupils: Present: normal accommodation - ENT ENT exam: Present: normal exam, normal orophraynx, mucous membranes moist, TM's normal bilaterally, normal external ear exam - Neck Neck exam: Present: normal inspection, full ROM. Absent: tenderness, meningismus, lymphadenopathy - Respiratory Respiratory exam: Present: normal lung sounds bilaterally, wheezes (bilatareal upper and lower lobes). Absent: respiratory distress, rales, rhonchi, stridor, chest wall tenderness, accessory muscle use, decreased breath sounds, prolonged expiratory - Cardiovascular Cardiovascular Exam: Present: regular rate, normal rhythm, normal heart sounds. Absent: bradycardia, tachycardia, irregular rhythm, systolic murmur, diastolic murmur, rubs, gallop - GI/Abdominal GI/Abdominal exam: Present: soft, normal bowel sounds. Absent: distended, tenderness, guarding, rebound, rigid, diminished bowel sounds - Rectal Rectal exam: Present: deferred - Extremities Exam Extremities exam: Present: normal inspection, full ROM, normal capillary refill - Back Exam Back exam: Present: normal inspection, full ROM - Neurological Exam Neurological exam: Present: alert, oriented X3, normal gait - Psychiatric Psychiatric exam: Present: normal affect, normal mood - Skin Skin exam: Present: warm, dry, intact, normal color. Absent: rash ED Course Vital Signs 01/25/18 11:42 Temperature 98.7 F Pulse Rate 86 Respiratory 20 Rate Blood Pressure 132/88 O2 Sat by Pulse 96 Oximetry - Reevaluation(s) Reevaluation #1: 01/25/18 13:00 Patient is speaking in full sentences with no signs of distress noted. ED Medical Decision Making - Medical Decision Making This is a [id number] that presents with sinusitis and bronchitis and asthma exacerbation. Patient is stable and was examined by me. Chest x-ray has been obtained and dictated by radiologist with normal exam. Patient is notified of x-ray results with no questions noted. Due to patient having symptoms of upper respiratory infection and worsening I will treat patient empirically with zpak. Patient was instructed to increase hydration, rest and take Motrin for fever episodes. Patient received motrin, steroids, breathing treatment, and tesslone perrls in the ED. Posttreatment in wheezing has subsided and patient stated he feels much better. Vitals stable. Patient is nonfebrile and normal heart rate. Patient was instructed Follow-up with a primary care doctor in 3-5 days or if symptoms worsen and continue return to emergency room as soon as possible. At time time of discharge, the patient does not seem toxic or ill in appearance. No acute signs of distress noted. Patient agrees to discharge treatment plan of care. No further questions noted by the patient. Critical care attestation.: If time is entered above; I have spent that time in minutes in the direct care of this critically ill patient, excluding procedure time. ED Disposition Clinical Impression: Bronchitis Sinusitis Qualifiers: Sinusitis location: frontal Chronicity: acute Recurrence: non-recurrent Qualified Code(s): J01.10 - Acute frontal sinusitis, unspecified Asthma exacerbation Qualifiers: Asthma severity: mild Asthma persistence: intermittent Qualified Code(s): J45.21 - Mild intermittent asthma with (acute) exacerbation Disposition: DC-01 TO HOME OR SELFCARE Is pt being admited?: No Does the pt Need Aspirin: No Condition: Stable Instructions: Asthma (ED), Acute Bronchitis (ED), Sinusitis (ED) Additional Instructions: Follow-up with a primary care doctor in 3-5 days or if symptoms worsen and continue return to emergency room as soon as possible. Prescriptions: ALBUTEROL Inhaler(NF) [VENTOLIN Inhaler(NF)] 1 puff IH Q4-6H PRN #1 inha PRN Reason: Wheezing Azithromycin [Zithromax Z-MARGUERITE] 250 mg PO DAILY #6 tablet Ibuprofen [Motrin] 600 mg PO Q8H PRN #30 tablet PRN Reason: Pain Prednisone [predniSONE 10 mg (6-Day Pack, 21 Tabs)] 10 mg PO .TAPER #1 tab.ds.pk Referrals: PRIMARY CARE, [Primary Care Provider] - 3-5 Days TERRIE NELSON MD [Staff Physician] - 3-5 Days [facility] [Outside] - 3-5 Days [facility] [Outside] - 3-5 Days Forms: Work/School Release Form(ED)
--- NOTE | 2018-01-25 13:23 | XRay Report ---
ROUTINE CHEST, TWO VIEWS: HISTORY: Cough. The trachea, heart, mediastinal contour, lung kennedy and bony thorax are unremarkable. IMPRESSION: Unremarkable chest x-ray.
== END 2018-01-25 13:40 | disposition home or self-care (01) ==
LOC: ED 11:37
DX: J45.901 Unspecified asthma with (acute) exacerbation (principal); J32.9 Chronic sinusitis, unspecified; Z87.891 Personal history of nicotine dependence; Z88.0 Allergy status to penicillin
CPT/HCPCS: 71046; 96372; 99283; J1100

== ENCOUNTER 2018-03-06 16:22 | Emergency (ER) | payer SELFPAY ==
[2018-03-06 16:33] VITALS: BP 129/88
--- NOTE | 2018-03-06 17:28 | Emergency Department Report ---
- General Chief Complaint: Upper Respiratory Infection Stated Complaint: COUGHING BLOOD Time Seen by Provider: 03/06/18 17:17 Source: patient Mode of arrival: Ambulatory Limitations: No Limitations - History of Present Illness MD Complaint: cough, sore throat, rhinorrhea, nasal congestion, other (painful bisters to throat. + contact with) -: days(s) (12 days) Severity: mild Severity scale (0 -10): 3 Quality: sharp Consistency: constant Improves With: nothing Worsens With: nothing Context: sick contacts Associated Symptoms: denies other symptoms, rhinorrhea, nasal congestion, sore throat, cough Treatments Prior to Arrival: none - Related Data Previous Rx's Medication Instructions Recorded Last Taken Type ALBUTEROL Inhaler (OR & NICU) 2 puff IH QID PRN #1 inhalation 02/03/17 Unknown Rx [ProAir HFA Inhaler] Clindamycin [Clindamycin CAP] 300 mg PO Q6H #40 capsule 02/03/17 Unknown Rx Meloxicam [Mobic] 7.5 mg PO QDAY #5 tablet 02/15/17 Unknown Rx levoFLOXacin [Levaquin TAB] 500 mg PO QDAY #5 tablet 02/15/17 Unknown Rx ALBUTEROL Inhaler (OR & NICU) 2 puff IH QID PRN #1 inhalation 04/01/17 Unknown Rx [ProAir HFA Inhaler] predniSONE [Deltasone] 40 mg PO QDAY #10 tab 04/01/17 Unknown Rx ALBUTEROL Inhaler (OR & NICU) 2 puff IH QID PRN #1 inhalation 09/06/17 Unknown Rx [ProAir HFA Inhaler] Azithromycin [Zithromax Z-MARGUERITE] 250 mg PO DAILY #6 tablet 09/06/17 Unknown Rx Benzonatate [Tessalon Perle] 100 mg PO Q6H PRN #20 capsule 09/06/17 Unknown Rx Ibuprofen [Motrin] 600 mg PO Q8H PRN #30 tablet 09/06/17 Unknown Rx Prednisone [predniSONE 10 mg 10 mg PO .TAPER #1 tab.ds.pk 09/06/17 Unknown Rx (6-Day Pack, 21 Tabs)] Clindamycin [Clindamycin CAP] 300 mg PO Q8H #30 capsule 01/13/18 Unknown Rx traMADol [Ultram 50 MG tab] 50 mg PO Q6HR PRN #12 tablet 01/13/18 Unknown Rx ALBUTEROL Inhaler(NF) [VENTOLIN 1 puff IH Q4-6H PRN #1 inha 01/25/18 Unknown Rx Inhaler(NF)] Azithromycin [Zithromax Z-MARGUERITE] 250 mg PO DAILY #6 tablet 01/25/18 Unknown Rx Ibuprofen [Motrin] 600 mg PO Q8H PRN #30 tablet 01/25/18 Unknown Rx Prednisone [predniSONE 10 mg 10 mg PO .TAPER #1 tab.ds.pk 01/25/18 Unknown Rx (6-Day Pack, 21 Tabs)] Azithromycin [Zithromax Z-MARGUERITE] 250 mg PO DAILY #6 tab 03/06/18 Unknown Rx Benzonatate [Tessalon Perles] 100 mg PO Q8HR PRN #30 capsule 03/06/18 Unknown Rx Lidocaine Viscous 2% 5 ml MM Q3H PRN #120 udc 03/06/18 Unknown Rx Allergies Allergy/AdvReac Type Severity Reaction Status Date / Time Penicillins Allergy Unknown Verified 01/25/18 11:42 ED Review of Systems ROS: Stated complaint: COUGHING BLOOD Other details as noted in HPI Comment: All other systems reviewed and negative Constitutional: denies: chills, fever Eyes: denies: eye pain, eye discharge, vision change ENT: throat pain, congestion. denies: ear pain Respiratory: cough. denies: shortness of breath, wheezing Cardiovascular: denies: chest pain, palpitations Endocrine: no symptoms reported Gastrointestinal: denies: abdominal pain, nausea, diarrhea Genitourinary: denies: urgency, dysuria Musculoskeletal: denies: back pain, joint swelling, arthralgia Skin: denies: rash, lesions Neurological: denies: headache, weakness, paresthesias Psychiatric: denies: anxiety, depression Hematological/Lymphatic: denies: easy bleeding, easy bruising ED Past Medical Hx - Past Medical History Hx Asthma: Yes Additional medical history: Bronchitis and sinusitis - Surgical History Hx Open Heart Surgery: Yes (age 10 months) - Social History Smoking Status: Former Smoker Substance Use Type: None - Medications Home Medications: Home Medications Medication Instructions Recorded Confirmed Last Taken Type ALBUTEROL Inhaler (OR & NICU) 2 puff IH QID PRN #1 inhalation 02/03/17 Unknown Rx [ProAir HFA Inhaler] Clindamycin [Clindamycin CAP] 300 mg PO Q6H #40 capsule 02/03/17 Unknown Rx Meloxicam [Mobic] 7.5 mg PO QDAY #5 tablet 02/15/17 Unknown Rx levoFLOXacin [Levaquin TAB] 500 mg PO QDAY #5 tablet 02/15/17 Unknown Rx ALBUTEROL Inhaler (OR & NICU) 2 puff IH QID PRN #1 inhalation 04/01/17 Unknown Rx [ProAir HFA Inhaler] predniSONE [Deltasone] 40 mg PO QDAY #10 tab 04/01/17 Unknown Rx ALBUTEROL Inhaler (OR & NICU) 2 puff IH QID PRN #1 inhalation 09/06/17 Unknown Rx [ProAir HFA Inhaler] Azithromycin [Zithromax Z-MARGUERITE] 250 mg PO DAILY #6 tablet 09/06/17 Unknown Rx Benzonatate [Tessalon Perle] 100 mg PO Q6H PRN #20 capsule 09/06/17 Unknown Rx Ibuprofen [Motrin] 600 mg PO Q8H PRN #30 tablet 09/06/17 Unknown Rx Prednisone [predniSONE 10 mg 10 mg PO .TAPER #1 tab.ds.pk 09/06/17 Unknown Rx (6-Day Pack, 21 Tabs)] Clindamycin [Clindamycin CAP] 300 mg PO Q8H #30 capsule 01/13/18 Unknown Rx traMADol [Ultram 50 MG tab] 50 mg PO Q6HR PRN #12 tablet 01/13/18 Unknown Rx ALBUTEROL Inhaler(NF) [VENTOLIN 1 puff IH Q4-6H PRN #1 inha 01/25/18 Unknown Rx Inhaler(NF)] Azithromycin [Zithromax Z-MARGUERITE] 250 mg PO DAILY #6 tablet 01/25/18 Unknown Rx Ibuprofen [Motrin] 600 mg PO Q8H PRN #30 tablet 01/25/18 Unknown Rx Prednisone [predniSONE 10 mg 10 mg PO .TAPER #1 tab.ds.pk 01/25/18 Unknown Rx (6-Day Pack, 21 Tabs)] Azithromycin [Zithromax Z-MARGUERITE] 250 mg PO DAILY #6 tab 03/06/18 Unknown Rx Benzonatate [Tessalon Perles] 100 mg PO Q8HR PRN #30 capsule 03/06/18 Unknown Rx Lidocaine Viscous 2% 5 ml MM Q3H PRN #120 udc 03/06/18 Unknown Rx ED Physical Exam - General Limitations: No Limitations General appearance: alert, in no apparent distress - Head Head exam: Present: atraumatic, normocephalic - Eye Eye exam: Present: normal appearance Pupils: Present: normal accommodation - ENT ENT exam: Present: mucous membranes moist - Expanded ENT Exam Expanded Teeth exam: Present: dental caries Throat exam: Positive: tonsillar erythema (airway patent. few apthous ulcerations. no exudate. toungue and uvula normal size. ) - Neck Neck exam: Present: normal inspection, full ROM - Respiratory Respiratory exam: Present: rhonchi. Absent: respiratory distress - Cardiovascular Cardiovascular Exam: Present: regular rate, normal rhythm. Absent: systolic murmur, diastolic murmur, rubs, gallop - GI/Abdominal GI/Abdominal exam: Present: soft, normal bowel sounds - Rectal Rectal exam: Present: deferred - Extremities Exam Extremities exam: Present: normal inspection - Back Exam Back exam: Present: normal inspection - Neurological Exam Neurological exam: Present: alert, oriented X3 - Psychiatric Psychiatric exam: Present: normal affect, normal mood - Skin Skin exam: Present: warm, dry, intact, normal color. Absent: rash ED Course Vital Signs 03/06/18 16:28 Temperature 98.7 F Pulse Rate 89 Respiratory 19 Rate Blood Pressure 129/88 O2 Sat by Pulse 95 Oximetry Critical care attestation.: If time is entered above; I have spent that time in minutes in the direct care of this critically ill patient, excluding procedure time. ED Disposition Clinical Impression: Pharyngitis Disposition: DC- TO HOME OR SELFCARE Is pt being admited?: No Does the pt Need Aspirin: No Condition: Stable Instructions: Pharyngitis (ED) Prescriptions: Azithromycin [Zithromax Z-MARGUERITE] 250 mg PO DAILY #6 tab Benzonatate [Tessalon Perles] 100 mg PO Q8HR PRN #30 capsule PRN Reason: Cough Lidocaine Viscous 2% 5 ml MM Q3H PRN #120 udc PRN Reason: Pain, Moderate (4-6) Referrals: [facility] [Provider Group] - 3-5 Days
--- NOTE | 2018-03-06 17:52 | XRay Report ---
FINAL REPORT EXAM: XR CHEST ROUTINE 2V HISTORY: FEVER TECHNIQUE: Frontal and lateral chest x-ray. PRIORS: 06 September 2017. FINDINGS: Median sternotomy wires again noted. Cardiac and mediastinal silhouette within normal limits. Lungs are normally expanded. No significant vascular congestion. No focal consolidation, apparent pleural effusion or pneumothorax. Bony thorax grossly unremarkable. IMPRESSION: 1. No acute consolidation.
[2018-03-06] MEDS ORDERED: MOTRIN PO ONE (18:04)
[2018-03-06] MEDS ORDERED: MOTRIN ONE (18:06)
== END 2018-03-06 18:07 | disposition home or self-care (01) ==
LOC: ED 16:22
DX: J02.9 Acute pharyngitis, unspecified (principal); J45.909 Unspecified asthma, uncomplicated; Z87.891 Personal history of nicotine dependence; Z88.0 Allergy status to penicillin
CPT/HCPCS: 71046; 99283

== ENCOUNTER 2018-07-10 12:49 | Emergency (ER) | payer SELFPAY ==
[2018-07-10] MEDS ORDERED: DELTASONE PO ONE (13:58)
--- NOTE | 2018-07-10 15:56 | Emergency Department Report ---
Blank Doc - Documentation Documentation: 37 y o male presents with throat pain x 2 days states daughter and sister has strep troat recently tonsils enlarged, erythymatous Rapid strep ordered amoxxi prednisone Reeevaluate d/c
[2018-07-10] MEDS ORDERED: PROVENTIL IH ONE (16:05)
--- NOTE | 2018-07-10 16:06 | Emergency Department Report ---
Minor Respiratory - HPI Chief Complaint: Sore Throat Stated Complaint: THROAT PAIN/CHEST PAIN Time Seen by Provider: 07/10/18 14:41 Duration: 3 Days Pain Location: Facial, Chest Severity: mild Minor Respiratory: Yes Rhinorrhea, Yes Sore Throat, Yes Able to Tolerate Fluids, Yes Cough, Yes Sick Contacts, No Ear Pain, No Hemoptysis, No Chest Pain, No Shortness of Breath, No Fever Other History: Patient is a 37-year-old -[place] male who comes to the ER today with upper respiratory complaints including cough and congestion. He is concerned he has strep because this child is just getting over strep. Patient denies any taking any home medications at present. He does have a history of asthma and gets bronchitis frequently. ED Review of Systems ROS: Stated complaint: THROAT PAIN/CHEST PAIN Other details as noted in HPI Comment: All other systems reviewed and negative Constitutional: see HPI Eyes: denies: eye pain, eye discharge ENT: as per HPI, throat pain. denies: ear pain Respiratory: see HPI, cough, wheezing Cardiovascular: denies: as per HPI, chest pain, palpitations Endocrine: denies: flushing Gastrointestinal: denies: abdominal pain Genitourinary: denies: urgency Musculoskeletal: denies: back pain Skin: denies: rash Neurological: denies: weakness Psychiatric: denies: depression Hematological/Lymphatic: denies: easy bleeding ED Past Medical Hx - Past Medical History Hx Asthma: Yes Additional medical history: Bronchitis and sinusitis - Surgical History Hx Open Heart Surgery: Yes (age 10 months) - Social History Smoking Status: Former Smoker Substance Use Type: None - Medications Home Medications: Home Medications Medication Instructions Recorded Confirmed Last Taken Type ALBUTEROL Inhaler (OR & NICU) 2 puff IH QID PRN #1 inhalation 07/10/18 Unknown Rx [ProAir HFA Inhaler] Azithromycin [Zithromax Z-MARGUERITE] 250 mg PO DAILY #6 tablet 07/10/18 Unknown Rx Benzonatate [Tessalon Perle] 100 mg PO Q6H PRN #20 capsule 07/10/18 Unknown Rx predniSONE [Deltasone] 20 mg PO DAILY #5 tablet 07/10/18 Unknown Rx Minor Respiratory Exam - Exam General: Vital signs noted. No distress. Alert and acting appropriately. HEENT: Yes Pharyngeal Erythema, Yes Moist Mucous Membranes, Yes Rhinorrhea, No Pharyngeal Exudates, No Conjuctival Injection, No Frontal Tenderness, No Maxillary Tenderness Ear: Neither TM Bulge, Neither TM Erythema, Neither EAC Pain, Neither EAC Discharge Neck: Yes Supple, No Adenopathy Lungs: Yes Good Air Exchange, Yes Wheezes, No Ronchi, No Stridor, No Cough, No Labored Respirations, No Retractions, No Use of Accessory Muscles, No Other Abnormal Lung Sounds Heart: Yes Regular, No Murmur Abdomen: Yes Normal Bowel Sounds, No Tenderness, No Peritoneal Signs Skin: No Rash, No Edema Neurologic: Alert and oriented, no deficits. Musculoskeletal: Unremarkable. ED Course Vital Signs 07/10/18 13:56 Temperature 98.6 F Pulse Rate 93 H Respiratory 16 Rate Blood Pressure 116/86 [Left] O2 Sat by Pulse 95 Oximetry ED Medical Decision Making - Medical Decision Making simple urti strep neg Labs 07/10/18 Unknown Group A Strep Rapid Negative duoneb/prednisone dc home w outpt plan of care ambulatory taking po afebrile Critical care attestation.: If time is entered above; I have spent that time in minutes in the direct care of this critically ill patient, excluding procedure time. ED Disposition Clinical Impression: Acute sinusitis, Acute bronchiolitis Disposition: DC-01 TO HOME OR SELFCARE Is pt being admited?: No Does the pt Need Aspirin: No Condition: Stable Instructions: Acute Bronchitis (ED) Additional Instructions: HYDRATE WELL WITH WATER MEDS ORDERED MOTRIN OR TYLENOL FOR PAIN OR FEVER FOLLOW UP PCP STREP NEGATIVE TODAY Referrals: RADHA RODRIGUES MD [Primary Care Provider] - 3-5 Days Time of Disposition: 16:16
[2018-07-10 16:41] VITALS: BP 121/84
== END 2018-07-10 16:40 | disposition home or self-care (01) ==
LOC: ED 12:49
DX: J01.90 Acute sinusitis, unspecified (principal); J21.9 Acute bronchiolitis, unspecified; Z87.891 Personal history of nicotine dependence; J45.909 Unspecified asthma, uncomplicated; Z88.0 Allergy status to penicillin
CPT/HCPCS: 87116; 87430; 94640; 99283; J7512

== ENCOUNTER 2018-08-11 13:57 | Emergency (ER) | payer OTHER ==
[2018-08-11 14:21] VITALS: BP 118/83
--- NOTE | 2018-08-11 14:23 | Emergency Department Report ---
Blank Doc - Documentation Documentation: 37 y o male presents to Ed with right sided cp x 2 days states pain worsened with inspiration labs cxr ACC evaluate
[2018-08-11] MEDS ORDERED: IBUPROFEN PO ONE (14:36)
--- NOTE | 2018-08-11 14:41 | Emergency Department Report ---
ED Chest Pain HPI - General Chief Complaint: Chest Pain Stated Complaint: RT SIDE CHEST PAIN Time Seen by Provider: 08/11/18 14:19 Source: patient Mode of arrival: Ambulatory Limitations: No Limitations - History of Present Illness Initial Comments: Patient 37-year-old white male with history of chest pain and S2 murmur COPD presents with chest pain 2 days of shortness of breath intermittently throughout exacerbated by deep inspiration and the rest is no nausea vomiting diaphoresis no back pain secondary to intolerance no edema patient is albuterol inhaler when necessary shortness of breath is relieved with signed last use was this candido SINGH Complaint: chest pain Onset/Timin -: days(s) Onset: during rest Pain Location: left chest Pain Radiation: none Severity: moderate Severity scale (0 -10): 4 Quality: tightness, sharp Consistency: intermittent Improves With: rest Worsens With: exertion, palpation, movement re: dyspnea. denies: nausea, vomting, diaphoresis Other Symptoms: cough. denies: fever, syncope, rash, acid taste in mouth, leg swelling, palpitations, burping Treatments Prior to Arrival: other (albuterol) Aspirin use within the Past 7 Days: (0) No - Related Data Previous Rx's Medication Instructions Recorded Last Taken Type ALBUTEROL Inhaler (OR & NICU) 2 puff IH QID PRN #1 inhalation 07/10/18 Unknown Rx [ProAir HFA Inhaler] Azithromycin [Zithromax Z-MARGUERITE] 250 mg PO DAILY #6 tablet 07/10/18 Unknown Rx Benzonatate [Tessalon Perle] 100 mg PO Q6H PRN #20 capsule 07/10/18 Unknown Rx predniSONE [Deltasone] 20 mg PO DAILY #5 tablet 07/10/18 Unknown Rx Clindamycin [Clindamycin CAP] 300 mg PO Q8H 10 Days #30 cap 08/11/18 Unknown Rx Ibuprofen 800 mg PO TID PRN #30 tablet 08/11/18 Unknown Rx diphenhydrAMINE [Benadryl CAP] 25 mg PO Q6HR PRN #30 capsule 08/11/18 Unknown Rx predniSONE [Deltasone] 40 mg PO QDAY 5 Days #10 tab 08/11/18 Unknown Rx Allergies Allergy/AdvReac Type Severity Reaction Status Date / Time Penicillins Allergy Unknown Verified 01/25/18 11:42 Heart Score - HEART Score History: Slightly suspicious EKG: Normal (were) Age: < 45 Risk factors: No known risk factors Troponin: < normal limit HEART Score: 0 ED Review of Systems ROS: Stated complaint: RT SIDE CHEST PAIN Other details as noted in HPI Constitutional: denies: chills, fever Eyes: denies: eye pain, eye discharge, vision change ENT: ear pain, throat pain, congestion Respiratory: cough, shortness of breath, wheezing Cardiovascular: chest pain Endocrine: no symptoms reported Gastrointestinal: denies: abdominal pain, nausea, vomiting, diarrhea Genitourinary: denies: urgency, dysuria Musculoskeletal: denies: back pain, joint swelling, arthralgia Skin: denies: rash, lesions Neurological: denies: headache, weakness, paresthesias Psychiatric: denies: anxiety, depression Hematological/Lymphatic: denies: easy bleeding, easy bruising ED Past Medical Hx - Past Medical History Hx Asthma: Yes Additional medical history: Bronchitis and sinusitis - Surgical History Hx Open Heart Surgery: Yes (age 10 months) - Social History Smoking Status: Never Smoker Substance Use Type: None - Medications Home Medications: Home Medications Medication Instructions Recorded Confirmed Last Taken Type ALBUTEROL Inhaler (OR & NICU) 2 puff IH QID PRN #1 inhalation 07/10/18 Unknown Rx [ProAir HFA Inhaler] Azithromycin [Zithromax Z-MARGUERITE] 250 mg PO DAILY #6 tablet 07/10/18 Unknown Rx Benzonatate [Tessalon Perle] 100 mg PO Q6H PRN #20 capsule 07/10/18 Unknown Rx predniSONE [Deltasone] 20 mg PO DAILY #5 tablet 07/10/18 Unknown Rx Clindamycin [Clindamycin CAP] 300 mg PO Q8H 10 Days #30 cap 08/11/18 Unknown Rx Ibuprofen 800 mg PO TID PRN #30 tablet 08/11/18 Unknown Rx diphenhydrAMINE [Benadryl CAP] 25 mg PO Q6HR PRN #30 capsule 08/11/18 Unknown Rx predniSONE [Deltasone] 40 mg PO QDAY 5 Days #10 tab 08/11/18 Unknown Rx ED Physical Exam - General Limitations: No Limitations General appearance: alert, in no apparent distress - Head Head exam: Present: atraumatic, normocephalic - Eye Eye exam: Present: normal appearance, PERRL, EOMI Pupils: Present: normal accommodation - ENT ENT exam: Present: mucous membranes moist, TM's normal bilaterally, normal external ear exam - Expanded ENT Exam Expanded Throat exam: Positive: tonsillar erythema, tonsillomegaly, other (uvula midline no exudate no lesion no stridor ). Negative: tonsillar exudate, R peritonsillar mass, L peritonsillar mass - Neck Neck exam: Present: normal inspection, full ROM. Absent: tenderness, meningismus, lymphadenopathy, thyromegaly - Respiratory Respiratory exam: Present: normal lung sounds bilaterally, chest wall tenderness (left anterior lateral chest wall p ain to palpation). Absent: respiratory distress, wheezes, stridor - Cardiovascular Cardiovascular Exam: Present: regular rate, normal rhythm, normal heart sounds. Absent: systolic murmur, diastolic murmur, rubs, gallop - GI/Abdominal GI/Abdominal exam: Present: soft, tenderness, normal bowel sounds. Absent: distended, guarding, rebound, rigid, bruit, hernia - Rectal Rectal exam: Present: deferred - Extremities Exam Extremities exam: Present: normal inspection, full ROM, normal capillary refill. Absent: tenderness, pedal edema, joint swelling, calf tenderness - Back Exam Back exam: Present: normal inspection, full ROM. Absent: tenderness, CVA tenderness (R), CVA tenderness (L), muscle spasm, paraspinal tenderness, vertebral tenderness, rash noted - Neurological Exam Neurological exam: Present: alert, oriented X3, CN II-XII intact, normal gait - Psychiatric Psychiatric exam: Present: normal affect, normal mood - Skin Skin exam: Present: warm, dry, intact, normal color. Absent: rash ED Course Vital Signs 08/11/18 08/11/18 14:19 14:47 Temperature 98.3 F Pulse Rate 83 Respiratory 16 18 Rate Blood Pressure 118/83 [Left] O2 Sat by Pulse 95 Oximetry FAROOQ score - Farooq Score Age > 65: (0) No Aspirin use within the Past 7 Days: (0) No 3 or more CAD Risk Factors: (0) No 2 or more Angina events in past 24 hrs: (0) No Known CAD with more than 50% Stenosis: (0) No Elevated Cardiac Markers: (0) No ST Deviation Greater than 0.5mm: (0) No FAROOQ Score: 0 ED Medical Decision Making - Lab Data Result diagrams: 08/11/18 14:43 08/11/18 14:43 - Radiology Data Radiology results: report reviewed, image reviewed Loc: ED Attending Dr: Ordering Physician: FRANSISCA LEE Date of Service: 08/11/18 Procedure(s): XR chest routine 2V Accession Number(s): [id number] cc: FRANSISCA LEE Fluoro Time In Minutes: ROUTINE CHEST, TWO VIEWS: Chest pain. PA and lateral views demonstrate the heart and mediastinal contour to be of normal size and shape. Sternotomy wires are present. The lungs are clear and fully expanded and the soft tissues and bony structures are normal. No interval change compared to February 2018. IMPRESSION: Normal study. Transcribed By: Hubert Dictated By: HAROON PENALOZA MD Electronically Authenticated By: HAROON PENALOZA MD Signed Date/Time: 08/11/18 152 DD/ 25 TD/TT: 08/11/181526 - Medical Decision Making Cxr normal no infiltrates no opacities , heart score : 0 , FAROOQ Score: 0, labs normal, exam consistant with sinusitis plan: benadryl augmentin, ibuprofen, prednisone, follow up with pcp in 2-3 days return to ed if symptoms worsen. pt verbalized agreement and understanding of same. Critical care attestation.: If time is entered above; I have spent that time in minutes in the direct care of this critically ill patient, excluding procedure time. ED Disposition Clinical Impression: Sinusitis Qualifiers: Sinusitis location: maxillary Chronicity: acute Recurrence: non-recurrent Qualified Code(s): J01.00 - Acute maxillary sinusitis, unspecified Disposition: - TO HOME OR SELFCARE Is pt being admited?: No Does the pt Need Aspirin: No Condition: Stable Instructions: Sinusitis (ED), Dizziness (ED) Prescriptions: diphenhydrAMINE [Benadryl CAP] 25 mg PO Q6HR PRN #30 capsule PRN Reason: sinus congestion Clindamycin [Clindamycin CAP] 300 mg PO Q8H 10 Days #30 cap predniSONE [Deltasone] 40 mg PO QDAY 5 Days #10 tab Ibuprofen 800 mg PO TID PRN #30 tablet PRN Reason: pain fever Referrals: ORLANDO CAMPBELL MD [Primary Care Provider] - 3-5 Days Forms: Work/School Release Form(ED) Time of Disposition: 16:00
[2018-08-11 14:56] LABS: Basophils # (Auto) 0.1 K/mm3 (0.0-0.1); Basophils % (Auto) 1.3 % (0.0-1.8); Eosinophils # (Auto) 0.5 K/mm3 (0.0-0.4); Eosinophils % (Auto) 7.3 % (0.0-4.3); Hematocrit 42.9 % (35.5-45.6); Hemoglobin 14.7 gm/dl (11.8-15.2); Lymphocytes # (Auto) 1.3 K/mm3 (1.2-5.4); Lymphocytes % (Auto) 17.8 % (13.4-35.0); Mean Corpuscular HGB Conc 34 % (32-34); Mean Corpuscular Volume 96 fl (84-94); Monocytes # (Auto) 0.5 K/mm3 (0.0-0.8); Monocytes % (Auto) 7.5 % (0.0-7.3); Platelet Count 325 K/mm3 (140-440); Red Blood Count 4.47 M/mm3 (3.65-5.03); Red Cell Distribution Width 13.8 % (13.2-15.2)
[2018-08-11 15:17] LABS: BUN/Creatinine Ratio 9; Blood Urea Nitrogen 8 mg/dL (9-20); Calcium 8.3 mg/dL (8.4-10.2); Hemolysis Index 9
--- NOTE | 2018-08-11 15:34 | XRay Report ---
ROUTINE CHEST, TWO VIEWS: Chest pain. PA and lateral views demonstrate the heart and mediastinal contour to be of normal size and shape. Sternotomy wires are present. The lungs are clear and fully expanded and the soft tissues and bony structures are normal. No interval change compared to February 2018. IMPRESSION: Normal study.
== END 2018-08-11 16:06 | disposition home or self-care (01) ==
LOC: ED 13:57
DX: J32.9 Chronic sinusitis, unspecified (principal); J44.9 Chronic obstructive pulmonary disease, unspecified; Z87.74 Personal history of (corrected) congenital malformations of heart and circulatory system; Z88.0 Allergy status to penicillin
CPT/HCPCS: 36415; 71046; 80048; 84484; 85025; 85379; 93005; 93010

== ENCOUNTER 2018-09-23 11:29 | Emergency (ER) | payer OTHER ==
[2018-09-23 11:39] VITALS: BP 105/77
[2018-09-23] MEDS ORDERED: DECADRON PO ONE (12:07)
[2018-09-23] MEDS ORDERED: IBUPROFEN PO ONE (12:07)
[2018-09-23] MEDS ORDERED: DUONEB *Not for PRN Use IH ONE (12:08)
--- NOTE | 2018-09-23 12:11 | Emergency Department Report ---
- General Chief Complaint: Upper Respiratory Infection Stated Complaint: MIKE/COUGH/WEAKNESS Time Seen by Provider: 09/23/18 12:00 Source: patient Mode of arrival: Ambulatory Limitations: No Limitations - History of Present Illness Initial Comments: 38-year-old male presents to the ER for cough and nasal congestion decreased appetite with productive green mucus. Patient reports a past medical history of COPD. He currently is on no medications no primary care provider. He isn't taking [id number] Mucinex and Claritin. Patient denies any nausea vomiting but reports he has felt warm does not have a temperature in triage and does not have a thermometer at home. Patient reports it is a slight headache. He also endorses that his daughter is being treated for strep throat. MD Complaint: cough, sore throat, rhinorrhea, nasal congestion -: week(s) (1.5) Consistency: constant Worsens With: nothing Context: sick contacts Associated Symptoms: fever (subjective), headache, rhinorrhea, nasal congestion, cough Treatments Prior to Arrival: "cold medicine" - Related Data Previous Rx's Medication Instructions Recorded Last Taken Type Benzonatate [Tessalon Perle] 100 mg PO Q6H PRN #20 capsule 07/10/18 Unknown Rx predniSONE [Deltasone] 20 mg PO DAILY #5 tablet 07/10/18 Unknown Rx Clindamycin [Clindamycin CAP] 300 mg PO Q8H 10 Days #30 cap 08/11/18 Unknown Rx Ibuprofen 800 mg PO TID PRN #30 tablet 08/11/18 Unknown Rx diphenhydrAMINE [Benadryl CAP] 25 mg PO Q6HR PRN #30 capsule 08/11/18 Unknown Rx ALBUTEROL Inhaler (OR & NICU) 2 puff IH QID PRN #1 inhalation 09/23/18 Unknown Rx [ProAir HFA Inhaler] Azithromycin [Zithromax Z-MARGUERITE] 250 mg PO DAILY #6 tablet 09/23/18 Unknown Rx Levocetirizine Dihydrochloride 5 mg PO QDAY #30 tablet 09/23/18 Unknown Rx [Allergy Relief] predniSONE [Deltasone] 40 mg PO QDAY 5 Days #10 tab 09/23/18 Unknown Rx Allergies Allergy/AdvReac Type Severity Reaction Status Date / Time Penicillins Allergy Unknown Verified 09/23/18 11:32 ED Review of Systems ROS: Stated complaint: MIKE/COUGH/WEAKNESS Other details as noted in HPI Comment: All other systems reviewed and negative Constitutional: fever (subjective), weakness ENT: throat pain Respiratory: cough, shortness of breath, wheezing Cardiovascular: denies: chest pain, palpitations Endocrine: no symptoms reported Gastrointestinal: denies: abdominal pain, nausea, diarrhea Genitourinary: denies: urgency, dysuria Musculoskeletal: denies: back pain, joint swelling, arthralgia Skin: denies: rash, lesions Neurological: headache, weakness ED Past Medical Hx - Past Medical History Hx Asthma: Yes Additional medical history: Bronchitis and sinusitis - Surgical History Hx Open Heart Surgery: Yes (age 10 months) - Social History Smoking Status: Former Smoker Substance Use Type: None - Medications Home Medications: Home Medications Medication Instructions Recorded Confirmed Last Taken Type Benzonatate [Tessalon Perle] 100 mg PO Q6H PRN #20 capsule 07/10/18 Unknown Rx predniSONE [Deltasone] 20 mg PO DAILY #5 tablet 07/10/18 Unknown Rx Clindamycin [Clindamycin CAP] 300 mg PO Q8H 10 Days #30 cap 08/11/18 Unknown Rx Ibuprofen 800 mg PO TID PRN #30 tablet 08/11/18 Unknown Rx diphenhydrAMINE [Benadryl CAP] 25 mg PO Q6HR PRN #30 capsule 08/11/18 Unknown Rx ALBUTEROL Inhaler (OR & NICU) 2 puff IH QID PRN #1 inhalation 09/23/18 Unknown Rx [ProAir HFA Inhaler] Azithromycin [Zithromax Z-MARGUERITE] 250 mg PO DAILY #6 tablet 09/23/18 Unknown Rx Levocetirizine Dihydrochloride 5 mg PO QDAY #30 tablet 09/23/18 Unknown Rx [Allergy Relief] predniSONE [Deltasone] 40 mg PO QDAY 5 Days #10 tab 09/23/18 Unknown Rx ED Physical Exam - General Limitations: No Limitations General appearance: alert - Head Head exam: Present: atraumatic, normocephalic - Eye Eye exam: Present: PERRL, EOMI - ENT ENT exam: Present: mucous membranes moist - Expanded ENT Exam Expanded Throat exam: Positive: tonsillar erythema, tonsillomegaly. Negative: tonsillar exudate - Neck Neck exam: Present: normal inspection, full ROM, lymphadenopathy. Absent: tenderness - Respiratory Respiratory exam: Present: wheezes, rhonchi, prolonged expiratory - Cardiovascular Cardiovascular Exam: Present: regular rate, normal rhythm. Absent: systolic murmur, diastolic murmur, rubs, gallop - GI/Abdominal GI/Abdominal exam: Present: soft, normal bowel sounds ED Course Vital Signs 09/23/18 11:37 Temperature 97.9 F Pulse Rate 91 H Respiratory 16 Rate Blood Pressure 105/77 O2 Sat by Pulse 92 Oximetry - Reevaluation(s) Reevaluation #1: 09/23/18 14:13 Patient reports he feels much better. Reevaluation of lung exam shows patient has improved with this respiratory wheeze lessening of his his expiratory wheeze. ED Medical Decision Making - Radiology Data Radiology results: report reviewed Patient: DIMITRIS CASE MR#: [id number] : 1980 Acct:[id number] Age/Sex: 38 / M ADM Date: 09/23/18 Loc: ED Attending Dr: Ordering Physician: NA DAWSON Date of Service: 09/23/18 Procedure(s): XR chest routine 2V Accession Number(s): [id number] cc: NA DAWSON Fluoro Time In Minutes: PROCEDURE: XR CHEST ROUTINE 2V TECHNIQUE: Frontal and lateral views of the chest HISTORY: Cough, MIKE COMPARISONS: 08/11/2018 FINDINGS: There is no visible pulmonary consolidation. No radiographically visible pneumothorax. No evidence of pleural effusion. Cardiac silhouette size is normal without vascular congestion. No visible acute displaced fracture in the regional skeleton. IMPRESSION: No acute cardiopulmonary disease in the visualized chest. This document is electronically signed by Michi Miranda MD., September 23 2018 01:35:48 PM ET Transcribed By: BAL Dictated By: MICHI MIRANDA MD Electronically Authenticated By: MICHI MIRANDA MD Signed Date/Time: 09/23/18 1337 DD/ 1140 TD/TT: 09/23/18 1156 - Medical Decision Making Patient has been evaluated by this provider in fast track. DuoNeb been ordered, that the Methasone 4 mg by mouth as been ordered. Rapid strep has been ordered. Ibuprofen as an order for pain management. Chest x-ray is pending. Critical care attestation.: If time is entered above; I have spent that time in minutes in the direct care of this critically ill patient, excluding procedure time. ED Disposition Clinical Impression: Acute sinusitis, Chronic cough Disposition: DC- TO HOME OR SELFCARE Is pt being admited?: No Does the pt Need Aspirin: No Condition: Stable Instructions: Allergic Rhinitis (ED), Sinusitis (ED), Reactive Airways Disease (ED) Additional Instructions: Please take medications as prescribed. Follow up with her primary care provider I have listed one below for your convenience. Increase her water intake and eventually as tolerated. Prescriptions: Levocetirizine Dihydrochloride [Allergy Relief] 5 mg PO QDAY #30 tablet predniSONE [Deltasone] 40 mg PO QDAY 5 Days #10 tab ALBUTEROL Inhaler (OR & NICU) [ProAir HFA Inhaler] 2 puff IH QID PRN #1 inhalation PRN Reason: Shortness Of Breath Azithromycin [Zithromax Z-MARGUERITE] 250 mg PO DAILY #6 tablet Forms: Work/School Release Form(ED), Accompanied Note
--- NOTE | 2018-09-23 13:37 | XRay Report ---
PROCEDURE: XR CHEST ROUTINE 2V TECHNIQUE: Frontal and lateral views of the chest HISTORY: Cough, MIKE COMPARISONS: 08/11/2018 FINDINGS: There is no visible pulmonary consolidation. No radiographically visible pneumothorax. No evidence of pleural effusion. Cardiac silhouette size is normal without vascular congestion. No visible acute displaced fracture in the regional skeleton. IMPRESSION: No acute cardiopulmonary disease in the visualized chest. This document is electronically signed by Michi Guevara MD., September 23 2018 01:35:48 PM ET
== END 2018-09-23 14:16 | disposition home or self-care (01) ==
LOC: ED 11:29
DX: J01.90 Acute sinusitis, unspecified (principal); J45.909 Unspecified asthma, uncomplicated; Z88.0 Allergy status to penicillin; Z87.891 Personal history of nicotine dependence
CPT/HCPCS: 71046; 82962; 94640; 99283; J8540

== ENCOUNTER 2019-06-06 16:00 | Emergency (ER) | payer SELFPAY ==
[2019-06-06 17:22] VITALS: BP 118/76
== END 2019-06-06 21:38 | disposition left against medical advice (07) ==
LOC: ED 16:00
DX: R05 Cough (principal); Z53.21 Procedure and treatment not carried out due to patient leaving prior to being seen by health care provider

== ENCOUNTER 2019-06-08 11:20 | Emergency (ER) | payer SELFPAY ==
[2019-06-08 11:47] VITALS: BP 114/85
[2019-06-08] MEDS ORDERED: ALBUTEROL 2.5 MG/3 ML NEBU IH ONE (11:52)
[2019-06-08] MEDS ORDERED: IPRATROPIUM 0.02% NEBU 2.5 ML IH ONE (11:52)
[2019-06-08] MEDS ORDERED: dexAMETHasone 20 MG/5 ML VIAL IM ONE (11:52)
--- NOTE | 2019-06-08 11:53 | Event Note ---
ED Screening Note Date of service: 06/08/19 Time: 11:50 ED Screening Note: 38 y/o male comes in for cough sore throat times 1 week. Feels that he can't get food down. Exam: Throat red Chest Rhonchi and wheezing This initial assessment/diagnostic orders/clinical plan/treatment(s) is/are sub ject to change based on patients health status, clinical progression and re- assessment by fellow clinical providers in the ED. Further treatment and workup at subsequent clinical providers discretion. Patient/guardian urged not to elope from the ED as their condition may be serious if not clinically assessed and managed. Initial orders include:
--- NOTE | 2019-06-08 12:07 | Emergency Department Report ---
HPI - General Chief Complaint: Sore Throat Time Seen by Provider: 06/08/19 11:50 - HPI HPI: Room 37 The patient is a 38-year-old male presenting with a chief complaint of cough congestion and sore throat. Patient states his symptoms began approximately 1 week ago with cough productive of yellow green sputum. Patient admits to rhinorrhea and nasal congestion. Patient states he has facial pressure and chest pain with his cough. Patient also complains of pain with swallowing. Patient denies sick contacts. Patient denies history of fever Location: [See above] Duration: [See above] Quality: [See above] Severity: [See above] Timing: [See above] Context: [See above] Modifying factors: [See above] Associated signs and symptoms: [see above] ED Past Medical Hx - Past Medical History Hx Asthma: Yes Additional medical history: Bronchitis and sinusitis - Surgical History Hx Open Heart Surgery: Yes (age 10 months) - Family History Family history: no significant - Social History Smoking Status: Former Smoker (none 1 month) Substance Use Type: None (denies illicit drug use) - Medications Home Medications: Home Medications Medication Instructions Recorded Confirmed Last Taken Type Benzonatate [Tessalon Perle] 100 mg PO Q6H PRN #20 capsule 07/10/18 Unknown Rx predniSONE [Deltasone] 20 mg PO DAILY #5 tablet 07/10/18 Unknown Rx Clindamycin [Clindamycin CAP] 300 mg PO Q8H 10 Days #30 cap 08/11/18 Unknown Rx Ibuprofen [Ibuprofen 800] 800 mg PO TID PRN #30 tablet 08/11/18 Unknown Rx diphenhydrAMINE [Benadryl CAP] 25 mg PO Q6HR PRN #30 capsule 08/11/18 Unknown Rx Albuterol INH(or & Nicu Only) 2 puff IH QID PRN #1 inhalation 09/23/18 Unknown Rx [ProAir HFA Inhaler] Azithromycin [Zithromax Z-MARGUERITE] 250 mg PO DAILY #6 tablet 09/23/18 Unknown Rx Levocetirizine Dihydrochloride 5 mg PO QDAY #30 tablet 09/23/18 Unknown Rx [Allergy Relief] predniSONE [Deltasone] 40 mg PO QDAY 5 Days #10 tab 09/23/18 Unknown Rx Albuterol INH(or & Nicu Only) 2 puff IH QID PRN #8.5 gram 06/08/19 Unknown Rx [ProAir HFA Inhaler] Azithromycin [Zithromax Z-MARGUERITE] 0 mg PO DAILY #6 tab 06/08/19 Unknown Rx Benzonatate [Tessalon Perles] 100 mg PO Q8HR #30 capsule 06/08/19 Unknown Rx HYDROcodone/APAP 5-325 [[place] 1 - 2 each PO Q6HR PRN #10 tablet 06/08/19 Unknown Rx 5/325] Ibuprofen [Motrin 800 MG tab] 800 mg PO Q8HR PRN #20 tablet 06/08/19 Unknown Rx ED Review of Systems ROS: Stated complaint: LUMP IN THROAT/MIKE/COUGH/PAIN Other details as noted in HPI Constitutional: denies: fever Eyes: denies: eye pain ENT: throat pain, congestion Respiratory: cough Musculoskeletal: myalgia Physical Exam - Physical Exam Vital Signs: Vital Signs 06/08/19 11:45 Temperature 98.3 F Pulse Rate 83 Respiratory 20 Rate Blood Pressure 114/85 Physical Exam: GENERAL: The patient is well-developed well-nourished male sitting on stretcher not appearing to be in acute distress. [] HEENT: Normocephalic. Atraumatic. Extraocular motions are intact. Patient has moist mucous membranes. Oropharynx clear NECK: Supple. No meningitic signs are noted. No stridor CHEST/LUNGS: Clear to auscultation. There is no respiratory distress noted. HEART/CARDIOVASCULAR: Regular. There is no tachycardia. There is no gallop rub or murmur. ABDOMEN: Abdomen is soft, nontender. Patient has normal bowel sounds. There is no abdominal distention. SKIN: There is no rash. There is no edema. There is no diaphoresis. NEURO: The patient is awake, alert, and oriented. The patient is cooperative. The patient has normal speech MUSCULOSKELETAL: There is no evidence of acute injury. ED Course Vital Signs 06/08/19 11:45 Temperature 98.3 F Pulse Rate 83 Respiratory 20 Rate Blood Pressure 114/85 ED Medical Decision Making - Radiology Data Radiology results: report reviewed (chest x-ray, lateral soft tissue neck x- ray), image reviewed (chest x-ray, lateral soft tissue neck x-ray) interpreted by me: Chest x-ray-no focal infiltrates, no pneumothorax Lateral soft tissue neck x-ray-no evidence of epiglottitis, no prevertebral swelling [address] [address] XRay Report Signed Patient: DIMITRIS CASE MR#: [id number] : 1980 Acct:[id number] Age/Sex: 38 / M ADM Date: 06/08/19 Loc: ED Attending Dr: Ordering Physician: IZABELLA ELY MD Date of Service: 06/08/19 Procedure(s): XR neck soft tissue Accession Number(s): [id number] cc: IZABELLA ELY MD Fluoro Time In Minutes: NECK SOFT TISSUES, 2 VIEWS HISTORY: Sore throat IMPRESSION: The base of the tongue, epiglottis, larynx and prevertebral soft tissues are unremarkable. No evidence for foreign body, soft tissue gas or abscess. No obvious mass. Mild cervical spondylosis is noted in the lower cervical spine. Signer Name: Jesus Decker Jr, MD Signed: 06/08/2019 12:44 PM Workstation Name: [id number] Transcribed By: TTR Dictated By: JESUS DECKER JR, MD Electronically Authenticated By: JESUS DECKER JR, MD Signed Date/Time: 06/08/19 1244 DD/ 1242 TD/TT: [address] [address] XRay Report Signed Patient: DIMITRIS CASE MR#: [id number] : 1980 Acct:[id number] Age/Sex: 38 / M ADM Date: 06/08/19 Loc: ED Attending Dr: Ordering Physician: IZABELLA ELY MD Date of Service: 06/08/19 Procedure(s): XR chest routine 2V Accession Number(s): [id number] cc: IZABELLA ELY MD Fluoro Time In Minutes: CHEST 2 VIEWS INDICATION / CLINICAL INFORMATION: productive cough. COMPARISON: Chest x-ray on 09/23/2018. FINDINGS: SUPPORT DEVICES: None. HEART / MEDIASTINUM: No significant abnormality. LUNGS / PLEURA: No significant pulmonary or pleural abnormality. No pneumothorax. ADDITIONAL FINDINGS: No significant additional findings. IMPRESSION: 1. No acute findings. Signer Name: Filippo Randall MD Signed: 06/08/2019 12:43 PM Workstation Name: [id number] Transcribed By: GIGI Dictated By: Filippo Randall MD Electronically Authenticated By: Filippo Randall MD Signed Date/Time: 06/08/191242 DD/ 42 TD/TT: - Differential Diagnosis influenza, bronchitis, pneumonia, epiglottitis, pharyngitis Critical care attestation.: If time is entered above; I have spent that time in minutes in the direct care of this critically ill patient, excluding procedure time. ED Disposition Clinical Impression: Acute bronchitis, Acute sinusitis, Pharyngitis Disposition: TO HOME OR SELFCARE Is pt being admited?: No Does the pt Need Aspirin: No Condition: Stable Instructions: Acute Bronchitis (ED) Additional Instructions: Return to the emergency department should you develop worsening symptoms, inability to tolerate food or liquids, high fever or any other concerns Prescriptions: Ibuprofen [Motrin 800 MG tab] 800 mg PO Q8HR PRN #20 tablet PRN Reason: Pain, Moderate (4-6) HYDROcodone/APAP 5-325 [[place] 5/325] 1 - 2 each PO Q6HR PRN #10 tablet PRN Reason: Pain Albuterol INH(or & Nicu Only) [ProAir HFA Inhaler] 2 puff IH QID PRN #8.5 gram PRN Reason: Shortness Of Breath Benzonatate [Tessalon Perles] 100 mg PO Q8HR #30 capsule Azithromycin [Zithromax Z-MARGUERITE] 0 mg PO DAILY #6 tab Referrals: TERRIE CHÁVEZ MD [Staff Physician] - 3-5 Days (Dr. Chávez is a primary physician. Please follow up with him to be established as a patient if you do not already have a primary physician) LÓPEZ FONSECA MD [Staff Physician] - 3-5 Days (Dr Fonseca is an journeyman pipe welder (ear nose and throat doctor). Please follow up with him for further evaluation) Time of Disposition: 13:04
--- NOTE | 2019-06-08 12:47 | XRay Report ---
CHEST 2 VIEWS INDICATION / CLINICAL INFORMATION: productive cough. COMPARISON: Chest x-ray on 09/23/2018. FINDINGS: SUPPORT DEVICES: None. HEART / MEDIASTINUM: No significant abnormality. LUNGS / PLEURA: No significant pulmonary or pleural abnormality. No pneumothorax. ADDITIONAL FINDINGS: No significant additional findings. IMPRESSION: 1. No acute findings. Signer Name: Filippo Randall MD Signed: 06/08/2019 12:43 PM Workstation Name: [id number]
--- NOTE | 2019-06-08 12:49 | XRay Report ---
NECK SOFT TISSUES, 2 VIEWS HISTORY: Sore throat IMPRESSION: The base of the tongue, epiglottis, larynx and prevertebral soft tissues are unremarkable . No evidence for foreign body, soft tissue gas or abscess. No obvious mass. Mild cervical spondylosi s is noted in the lower cervical spine. Signer Name: Jesus Decker Jr, MD Signed: 06/08/2019 12:44 PM Workstation Name: [id number]
== END 2019-06-08 13:31 | disposition home or self-care (01) ==
LOC: ED 11:20
DX: J20.9 Acute bronchitis, unspecified (principal); J01.90 Acute sinusitis, unspecified; J45.909 Unspecified asthma, uncomplicated; Z98.890 Other specified postprocedural states; Z87.891 Personal history of nicotine dependence; Z79.899 Other long term (current) drug therapy; Z88.0 Allergy status to penicillin
CPT/HCPCS: 70360; 71046; 87400; 94640; 96372; 99284; J1100; 94644

== ENCOUNTER 2020-04-26 18:08 | Emergency (ER) | payer SELFPAY ==
--- NOTE | 2020-04-26 18:58 | XRay Report ---
XR spine sacrum/coccyx 2+V INDICATION / CLINICAL INFORMATION: fracture COMPARISON: None available. FINDINGS: BONES / JOINT(S): No acute fracture. The SI joints are intact without significant degenerative change s. No osseous erosions. SOFT TISSUES: No significant abnormality. ADDITIONAL FINDINGS: None. IMPRESSION: No acute process identified. Signer Name: Hammad Veloz MD Signed: 04/26/2020 6:54 PM Workstation Name: [id number]
[2020-04-26] MEDS ORDERED: oxyCODONE /ACETAMINOPHEN 5-325MG TAB PO ONE ×3 (20:24→20:50)
[2020-04-26] MEDS ORDERED: IBUPROFEN 800 MG TAB PO ONE (20:24)
--- NOTE | 2020-04-26 20:24 | Emergency Department Report ---
ED General Adult HPI - General Chief complaint: Fall Stated complaint: FALL Time Seen by Provider: 04/26/20 19:23 Source: patient Mode of arrival: Ambulatory Limitations: No Limitations - History of Present Illness Initial comments: 39-year-old male patient presents with complaints of buttock pain after a fall onto his butt earlier today. Patient states he slipped and fell down the stairs hitting his bottom. He denies any head trauma, numbness/tingling/weakness in his limbs, loss of bladder/bowel control, hematochezia/hematuria, or difficulty with ambulation. He rates his current pain as a 9/10 in severity and states it worsens with sitting on his bottom. Patient denies trying any OTC medicine prior to arrival - Related Data Previous Rx's Medication Instructions Recorded Last Taken Type Benzonatate [Tessalon Perle] 100 mg PO Q6H PRN #20 capsule 07/10/18 Unknown Rx predniSONE [Deltasone] 20 mg PO DAILY #5 tablet 07/10/18 Unknown Rx Clindamycin [Clindamycin CAP] 300 mg PO Q8H 10 Days #30 cap 08/11/18 Unknown Rx Ibuprofen [Ibuprofen 800] 800 mg PO TID PRN #30 tablet 08/11/18 Unknown Rx diphenhydrAMINE [Benadryl CAP] 25 mg PO Q6HR PRN #30 capsule 08/11/18 Unknown Rx Albuterol Mdi (or & Nicu Only) 2 puff IH QID PRN #1 inhalation 09/23/18 Unknown Rx [ProAir HFA Inhaler] Azithromycin [Zithromax Z-MARGUERITE] 250 mg PO DAILY #6 tablet 09/23/18 Unknown Rx Levocetirizine Dihydrochloride 5 mg PO QDAY #30 tablet 09/23/18 Unknown Rx [Allergy Relief] predniSONE [Deltasone] 40 mg PO QDAY 5 Days #10 tab 09/23/18 Unknown Rx Albuterol Mdi (or & Nicu Only) 2 puff IH QID PRN #8.5 gram 06/08/19 Unknown Rx [ProAir HFA Inhaler] Azithromycin [Zithromax Z-MARGUERITE] 0 mg PO DAILY #6 tab 06/08/19 Unknown Rx Benzonatate [Tessalon Perles] 100 mg PO Q8HR #30 capsule 06/08/19 Unknown Rx HYDROcodone/APAP 5-325 [[place] 1 - 2 each PO Q6HR PRN #10 tablet 06/08/19 Unknown Rx 5/325] Ibuprofen [Motrin 800 MG tab] 800 mg PO Q8HR PRN #20 tablet 06/08/19 Unknown Rx Clindamycin [Clindamycin CAP] 450 mg PO TID 7 Days #63 capsule 11/17/19 Unknown Rx Ibuprofen [Motrin 600 MG tab] 600 mg PO Q8H PRN #14 tablet 11/17/19 Unknown Rx Cyclobenzaprine [Flexeril] 10 mg PO TID PRN #20 tablet 02/19/20 Unknown Rx HYDROcodone/APAP 5-325 [[place] 1 - 2 each PO Q6HR PRN #7 tablet 02/19/20 Unknown Rx 5/325] Ibuprofen [Motrin 800 MG tab] 800 mg PO Q8HR PRN #20 tablet 02/19/20 Unknown Rx Acetaminophen/Codeine [Tylenol 1 tab PO Q8H PRN #8 tab 04/26/20 Unknown Rx /Codeine # 3 tab] Diclofenac Sodium 75 mg PO BID PRN #14 tablet.dr 04/26/20 Unknown Rx methOCARBAMOL [Robaxin TAB] 1,500 mg PO Q8H PRN #20 tablet 04/26/20 Unknown Rx Allergies Allergy/AdvReac Type Severity Reaction Status Date / Time Penicillins Allergy Unknown Verified 09/23/18 11:32 ED Review of Systems ROS: Stated complaint: FALL Other details as noted in HPI Constitutional: denies: malaise Gastrointestinal: denies: hematochezia Genitourinary: denies: hematuria Musculoskeletal: back pain. denies: joint swelling Skin: denies: change in color Neurological: denies: headache, numbness, paresthesias, abnormal gait ED Past Medical Hx - Past Medical History Hx Asthma: Yes Additional medical history: Bronchitis and sinusitis - Surgical History Hx Open Heart Surgery: Yes (age 10 months) - Social History Smoking Status: Never Smoker Substance Use Type: None - Medications Home Medications: Home Medications Medication Instructions Recorded Confirmed Last Taken Type Benzonatate [Tessalon Perle] 100 mg PO Q6H PRN #20 capsule 07/10/18 Unknown Rx predniSONE [Deltasone] 20 mg PO DAILY #5 tablet 07/10/18 Unknown Rx Clindamycin [Clindamycin CAP] 300 mg PO Q8H 10 Days #30 cap 08/11/18 Unknown Rx Ibuprofen [Ibuprofen 800] 800 mg PO TID PRN #30 tablet 08/11/18 Unknown Rx diphenhydrAMINE [Benadryl CAP] 25 mg PO Q6HR PRN #30 capsule 08/11/18 Unknown Rx Albuterol Mdi (or & Nicu Only) 2 puff IH QID PRN #1 inhalation 09/23/18 Unknown Rx [ProAir HFA Inhaler] Azithromycin [Zithromax Z-MARGUERITE] 250 mg PO DAILY #6 tablet 09/23/18 Unknown Rx Levocetirizine Dihydrochloride 5 mg PO QDAY #30 tablet 09/23/18 Unknown Rx [Allergy Relief] predniSONE [Deltasone] 40 mg PO QDAY 5 Days #10 tab 09/23/18 Unknown Rx Albuterol Mdi (or & Nicu Only) 2 puff IH QID PRN #8.5 gram 06/08/19 Unknown Rx [ProAir HFA Inhaler] Azithromycin [Zithromax Z-MARGUERITE] 0 mg PO DAILY #6 tab 06/08/19 Unknown Rx Benzonatate [Tessalon Perles] 100 mg PO Q8HR #30 capsule 06/08/19 Unknown Rx HYDROcodone/APAP 5-325 [[place] 1 - 2 each PO Q6HR PRN #10 tablet 06/08/19 Unknown Rx 5/325] Ibuprofen [Motrin 800 MG tab] 800 mg PO Q8HR PRN #20 tablet 06/08/19 Unknown Rx Clindamycin [Clindamycin CAP] 450 mg PO TID 7 Days #63 capsule 11/17/19 Unknown Rx Ibuprofen [Motrin 600 MG tab] 600 mg PO Q8H PRN #14 tablet 11/17/19 Unknown Rx Cyclobenzaprine [Flexeril] 10 mg PO TID PRN #20 tablet 02/19/20 Unknown Rx HYDROcodone/APAP 5-325 [[place] 1 - 2 each PO Q6HR PRN #7 tablet 02/19/20 Unknown Rx 5/325] Ibuprofen [Motrin 800 MG tab] 800 mg PO Q8HR PRN #20 tablet 02/19/20 Unknown Rx Acetaminophen/Codeine [Tylenol 1 tab PO Q8H PRN #8 tab 04/26/20 Unknown Rx /Codeine # 3 tab] Diclofenac Sodium 75 mg PO BID PRN #14 tablet. 04/26/20 Unknown Rx methOCARBAMOL [Robaxin TAB] 1,500 mg PO Q8H PRN #20 tablet 04/26/20 Unknown Rx ED Physical Exam - General Limitations: No Limitations General appearance: alert, in no apparent distress - Head Head exam: Present: atraumatic, normocephalic - Eye Eye exam: Present: normal appearance - Respiratory Respiratory exam: Absent: respiratory distress - Cardiovascular Cardiovascular Exam: Present: regular rate - Extremities Exam Extremities exam: Present: full ROM - Back Exam Back exam: Present: full ROM, tenderness (Point tenderness to palpation over the coccyx without obvious deformity). Absent: paraspinal tenderness - Neurological Exam Neurological exam: Present: alert, oriented X3, normal gait. Absent: motor sensory deficit - Expanded Neurological Exam Expanded Sensory exam: Lower Extremity Light Touch: Normal Motor strength exam: RUE: 5, LUE: 5, RLE: 5, LLE: 5 - Psychiatric Psychiatric exam: Present: normal affect, normal mood - Skin Skin exam: Present: warm, dry, intact, normal color. Absent: rash ED Course Vital Signs 04/26/20 04/26/20 04/26/20 18:12 18:13 21:10 Temperature 98.1 F 98.1 F Pulse Rate 104 H 97 H Respiratory 14 18 Rate Blood Pressure 136/104 Blood Pressure 136/93 [Left] O2 Sat by Pulse 89 96 98 Oximetry ED Medical Decision Making - Radiology Data Radiology results: report reviewed XR spine sacrum/coccyx 2+V INDICATION / CLINICAL INFORMATION: fracture COMPARISON: None available. FINDINGS: BONES / JOINT(S): No acute fracture. The SI joints are intact without significant degenerative changes. No osseous erosions. SOFT TISSUES: No significant abnormality. ADDITIONAL FINDINGS: None. IMPRESSION: No acute process identified. - Medical Decision Making 39-year-old male patient presents with complaints of buttock pain after a fall onto his butt earlier today. Patient states he slipped and fell down the stairs hitting his bottom. He denies any head trauma, numbness/tingling/weakness in his limbs, loss of bladder/bowel control, hematochezia/hematuria, or difficulty with ambulation. He rates his current pain as a 9/10 in severity and states it worsens with sitting on his bottom. Patient denies trying any OTC medicine prior to arrival X-ray of the coccyx and sacrum is without acute bony abnormalities. Patient is neurologically intact on exam. He denies any red flag symptoms. Will treat for bone contusion. Recommend follow-up with PCP in 3 to 5 days. Strict return precautions were discussed in detail with patient verbalizes understanding. Critical care attestation.: If time is entered above; I have spent that time in minutes in the direct care of this critically ill patient, excluding procedure time. ED Disposition Clinical Impression: Coccyx contusion Qualifiers: Encounter type: initial encounter Qualified Code(s): S30.0XXA - Contusion of lower back and pelvis, initial encounter Disposition: TO HOME OR SELFCARE Is pt being admited?: No Condition: Stable Instructions: Tailbone Injury Prescriptions: Diclofenac Sodium 75 mg PO BID PRN #14 tablet.dr PRN Reason: pain methOCARBAMOL [Robaxin TAB] 1,500 mg PO Q8H PRN #20 tablet PRN Reason: Muscle spasm/tightness Acetaminophen/Codeine [Tylenol /Codeine # 3 tab] 1 tab PO Q8H PRN #8 tab PRN Reason: Pain , Severe (7-10) Referrals: PRIMARY CARE, [Primary Care Provider] - 3-5 Days [facility] [Provider Group] - as needed Forms: Work/School Release Form(ED)
[2020-04-26 21:11] VITALS: BP 136/93
== END 2020-04-26 21:18 | disposition home or self-care (01) ==
LOC: ED 18:08
DX: S30.0XXA Contusion of lower back and pelvis, initial encounter (principal); J45.909 Unspecified asthma, uncomplicated; Z98.890 Other specified postprocedural states; Z79.899 Other long term (current) drug therapy; Z88.0 Allergy status to penicillin; W10.9XXA Fall (on) (from) unspecified stairs and steps, initial encounter; Y93.89 Activity, other specified; Y92.89 Other specified places as the place of occurrence of the external cause; Y99.8 Other external cause status
CPT/HCPCS: 72220

== ENCOUNTER 2020-06-25 14:09 | Emergency (ER) | payer SELFPAY ==
[2020-06-25 14:31] VITALS: BP 149/118
[2020-06-25] MEDS ORDERED: CYCLOBENZAPRINE 10 MG TAB PO ONE (14:31)
[2020-06-25] MEDS ORDERED: predniSONE 20 MG TAB PO ONE (14:31)
[2020-06-25] MEDS ORDERED: HYDROcodone/ACETAMINOPHEN 5-325 MG TAB PO ONE (14:31)
--- NOTE | 2020-06-25 14:31 | Emergency Department Report ---
ED Back Pain/Injury HPI - General Stated Complaint: SHARP HIP PAINS Time Seen by Provider: 06/25/20 14:31 Source: patient Mode of arrival: Ambulatory Limitations: No Limitations - History of Present Illness Initial Comments: Patient is a 39-year-old male that comes to the emergency room today complaining of left lower extremity pain. The pain originates in his lumbar spine and radiates to his left thigh. He describes it as a sharp pain. Patient has a history of lumbar back disease on further probing. However, he did not correlate his back problems with his leg. Patient does have a positive left straight leg raise on exam Patient is afebrile, nontoxic and [id number]. DP is +2 bilaterally. Calf is nontender. Patient has no chest pain or shortness of breath. Patient is obese. He is ambulating in the ER. MD Complaint: back pain Similar Symptoms Previously: Yes Place: home Radiation: none Severity: mild Quality: burning Consistency: intermittent Improves With: immobilization Worsens With: movement Associated Symptoms: denies other symptoms - Related Data Previous Rx's Medication Instructions Recorded Last Taken Type Albuterol Mdi (or & Nicu Only) 2 puff IH QID PRN #8.5 gram 06/08/19 Unknown Rx [ProAir HFA Inhaler] Cyclobenzaprine [Flexeril] 10 mg PO TID PRN #10 tablet 06/25/20 Unknown Rx Ibuprofen [Motrin] 800 mg PO Q8HR PRN #30 tablet 06/25/20 Unknown Rx predniSONE [Deltasone] 20 mg PO DAILY #5 tablet 06/25/20 Unknown Rx traMADoL [Ultram] 50 mg PO Q6HR PRN #10 tablet 06/25/20 Unknown Rx Allergies Allergy/AdvReac Type Severity Reaction Status Date / Time Penicillins Allergy Unknown Verified 09/23/18 11:32 ED Review of Systems ROS: Stated complaint: SHARP HIP PAINS Other details as noted in HPI Comment: All other systems reviewed and negative ED Past Medical Hx - Past Medical History Previous Medical History?: Yes Hx Asthma: Yes Additional medical history: Bronchitis and sinusitis - Surgical History Past Surgical History?: Yes Hx Open Heart Surgery: Yes (age 10 months) - Family History Family history: no significant - Social History Smoking Status: Never Smoker Substance Use Type: None - Medications Home Medications: Home Medications Medication Instructions Recorded Confirmed Last Taken Type Albuterol Mdi (or & Nicu Only) 2 puff IH QID PRN #8.5 gram 06/08/19 Unknown Rx [ProAir HFA Inhaler] Cyclobenzaprine [Flexeril] 10 mg PO TID PRN #10 tablet 06/25/20 Unknown Rx Ibuprofen [Motrin] 800 mg PO Q8HR PRN #30 tablet 06/25/20 Unknown Rx predniSONE [Deltasone] 20 mg PO DAILY #5 tablet 06/25/20 Unknown Rx traMADoL [Ultram] 50 mg PO Q6HR PRN #10 tablet 06/25/20 Unknown Rx ED Physical Exam - General General appearance: alert, in no apparent distress - Head Head exam: Present: atraumatic, normocephalic - Eye Eye exam: Present: normal appearance - ENT ENT exam: Present: mucous membranes moist - Neck Neck exam: Present: normal inspection - Respiratory Respiratory exam: Present: normal lung sounds bilaterally. Absent: respiratory distress - Cardiovascular Cardiovascular Exam: Present: regular rate, normal rhythm. Absent: systolic murmur, diastolic murmur, rubs, gallop - GI/Abdominal GI/Abdominal exam: Present: soft, normal bowel sounds - Rectal Rectal exam: Present: deferred - Extremities Exam Extremities exam: Present: normal inspection - Back Exam Back exam: Present: normal inspection - Neurological Exam Neurological exam: Present: alert, oriented X3 - Psychiatric Psychiatric exam: Present: normal affect, normal mood - Skin Skin exam: Present: warm, dry, intact, normal color. Absent: rash ED Course Vital Signs 06/25/20 06/25/20 14:28 14:35 Temperature 97.7 F Pulse Rate 107 H Respiratory 18 5 L Rate Blood Pressure 149/118 O2 Sat by Pulse 99 Oximetry ED Medical Decision Making - Medical Decision Making Mr. Patterson was medicated in the emergency room with with decrease in pain. He is being discharged home with discharge instructions-including diet, activity, follow-up. Patient verbalizes understanding of discharge plan of care. I have explained to patient that his blood pressure was elevated initially in triage. He has no history of hypertension. I explained to him that it is in part due to him being in pain. But that he should monitor his blood pressure, record his blood pressure and take it to a PCP and follow-up. He verbalizes understanding. Vital Signs 06/25/20 06/25/20 14:28 14:35 Temperature 97.7 F Pulse Rate 107 H Respiratory 18 5 L Rate Blood Pressure 149/118 O2 Sat by Pulse 99 Oximetry Respiratory rate is 18-22. Blood pressure as taken by the DANITA on discharge 130/80. Heart rate is 90. - Differential Diagnosis musculoskeletal pain/sciatica Critical care attestation.: If time is entered above; I have spent that time in minutes in the direct care of this critically ill patient, excluding procedure time. ED Disposition Clinical Impression: Elevated blood pressure reading, Sciatica Disposition: TO HOME OR SELFCARE Is pt being admited?: No Does the pt Need Aspirin: No Condition: Stable Instructions: Radicular Pain, Sciatica Additional Instructions: meds as ordered follow up with pcp referral below use good body mechanics warm compresses and baths epsom salts will also help with pain Prescriptions: predniSONE [Deltasone] 20 mg PO DAILY #5 tablet Cyclobenzaprine [Flexeril] 10 mg PO TID PRN #10 tablet PRN Reason: Muscle Spasm Ibuprofen [Motrin] 800 mg PO Q8HR PRN #30 tablet PRN Reason: Pain, Moderate (4-6) traMADoL [Ultram] 50 mg PO Q6HR PRN #10 tablet PRN Reason: Pain Referrals: LORIN ROSS MD [Staff Physician] - 3-5 Days Time of Disposition: 14:56
== END 2020-06-25 15:30 | disposition home or self-care (01) ==
LOC: ED 14:09
DX: R03.0 Elevated blood-pressure reading, without diagnosis of hypertension (principal); M54.32 Sciatica, left side; J45.909 Unspecified asthma, uncomplicated; Z79.899 Other long term (current) drug therapy; Z88.0 Allergy status to penicillin
CPT/HCPCS: 99282; J7512

== ENCOUNTER 2020-09-12 11:48 | Emergency (ER) | payer SELFPAY ==
--- NOTE | 2020-09-12 12:38 | Emergency Department Report ---
ED General Adult HPI - General Chief complaint: Sore Throat Stated complaint: SORE THROAT Time Seen by Provider: 09/12/20 12:01 Source: patient Mode of arrival: Ambulatory Limitations: No Limitations - History of Present Illness Initial comments: 40-year-old male patient presents with complaints of sore throat x3 days. Patient rates his pain as a 6/10 in severity and states it worsens with swallowing. He denies any cough, chest pain, rashes, difficulty opening his jaw, or fever/chills/sweats. He does admit to body aches. No past medical history per patient. Denies recent sick contacts. -: Sudden Severity scale (0 -10): 5 Treatments Prior to Arrival: none - Related Data Previous Rx's Medication Instructions Recorded Last Taken Type Albuterol Mdi (or & Nicu Only) 2 puff IH QID PRN #8.5 gram 06/08/19 Unknown Rx [ProAir HFA Inhaler] Cyclobenzaprine [Flexeril] 10 mg PO TID PRN #10 tablet 06/25/20 Unknown Rx Ibuprofen [Motrin] 800 mg PO Q8HR PRN #30 tablet 06/25/20 Unknown Rx predniSONE [Deltasone] 20 mg PO DAILY #5 tablet 06/25/20 Unknown Rx traMADoL [Ultram] 50 mg PO Q6HR PRN #10 tablet 06/25/20 Unknown Rx Azithromycin [Zithromax Z-MARGUERITE] 0 mg PO DAILY #6 tab 09/12/20 Unknown Rx Ibuprofen [Motrin 800 MG tab] 800 mg PO Q8HR PRN #15 tablet 09/12/20 Unknown Rx Allergies Allergy/AdvReac Type Severity Reaction Status Date / Time Penicillins Allergy Unknown Verified 09/23/18 11:32 ED Review of Systems ROS: Stated complaint: SORE THROAT Other details as noted in HPI Constitutional: denies: chills, diaphoresis, fever, malaise, weakness ENT: throat pain Respiratory: denies: cough, shortness of breath Cardiovascular: denies: chest pain Gastrointestinal: denies: nausea, vomiting Skin: denies: change in color Neurological: denies: headache Hematological/Lymphatic: denies: swollen glands ED Past Medical Hx - Past Medical History Previous Medical History?: Yes Hx Asthma: Yes Additional medical history: Bronchitis and sinusitis - Surgical History Past Surgical History?: Yes Hx Open Heart Surgery: Yes (age 10 months) - Social History Smoking Status: Never Smoker Substance Use Type: None - Medications Home Medications: Home Medications Medication Instructions Recorded Confirmed Last Taken Type Albuterol Mdi (or & Nicu Only) 2 puff IH QID PRN #8.5 gram 06/08/19 Unknown Rx [ProAir HFA Inhaler] Cyclobenzaprine [Flexeril] 10 mg PO TID PRN #10 tablet 06/25/20 Unknown Rx Ibuprofen [Motrin] 800 mg PO Q8HR PRN #30 tablet 06/25/20 Unknown Rx predniSONE [Deltasone] 20 mg PO DAILY #5 tablet 06/25/20 Unknown Rx traMADoL [Ultram] 50 mg PO Q6HR PRN #10 tablet 06/25/20 Unknown Rx Azithromycin [Zithromax Z-MARGUERITE] 0 mg PO DAILY #6 tab 09/12/20 Unknown Rx Ibuprofen [Motrin 800 MG tab] 800 mg PO Q8HR PRN #15 tablet 09/12/20 Unknown Rx ED Physical Exam - General Limitations: No Limitations General appearance: alert, in no apparent distress, obese - Head Head exam: Present: atraumatic, normocephalic - Eye Eye exam: Present: normal appearance - Expanded ENT Exam Expanded Mouth exam: Present: tongue normal. Absent: drooling Throat exam: Positive: tonsillar erythema, tonsillomegaly (Bilateral 2+ enlargement of the tonsils noted; airway is nonobstructed; uvula is midline). Negative: tonsillar exudate - Neck Neck exam: Present: full ROM, lymphadenopathy (Mild anterior cervical tender lymphadenopathy noted). Absent: meningismus - Respiratory Respiratory exam: Present: normal lung sounds bilaterally. Absent: respiratory distress - Cardiovascular Cardiovascular Exam: Present: regular rate, normal rhythm - Neurological Exam Neurological exam: Present: alert, oriented X3 - Psychiatric Psychiatric exam: Present: normal affect, normal mood - Skin Skin exam: Present: warm, dry, intact, normal color. Absent: rash ED Course Vital Signs 09/12/20 09/12/20 12:01 12:50 Temperature 98.4 F Pulse Rate 88 Respiratory 18 Rate Blood Pressure 159/109 Blood Pressure 163/108 [Right] O2 Sat by Pulse 94 Oximetry ED Medical Decision Making - Medical Decision Making 40-year-old male patient presents with complaints of sore throat x3 days. Patient rates his pain as a 6/10 in severity and states it worsens with swallowing. He denies any cough, chest pain, rashes, difficulty opening his jaw, or fever/chills/sweats. He does admit to body aches. No past medical history per patient. Denies recent sick contacts. Patient has penicillin allergy-we will treat for strep pharyngitis with Z-Marguerite. Blood pressure noted to be elevated-patient denies history of hypertension. No neurologic symptoms here today per patient. Patient is otherwise well-appearing and stable for discharge home. Recommend follow-up with primary care and 2 days for blood pressure recheck and possible diagnosis of hypertension. Discussed signs and symptoms that should prompt immediate return to the emergency department in detail with patient who verbalized understanding. Critical care attestation.: If time is entered above; I have spent that time in minutes in the direct care of this critically ill patient, excluding procedure time. ED Disposition Clinical Impression: Strep pharyngitis, Elevated BP without diagnosis of hypertension Disposition: DC-01 TO HOME OR SELFCARE Is pt being admited?: No Condition: Stable Instructions: Strep Throat, Adult, Hypertension, Adult Prescriptions: Ibuprofen [Motrin 800 MG tab] 800 mg PO Q8HR PRN #15 tablet PRN Reason: pain Azithromycin [Zithromax Z-MARGUERITE] 0 mg PO DAILY #6 tab Referrals: [facility] [Provider Group] - 09/15/20 (Blood Pressure recheck ) Forms: Work/School Release Form(ED)
[2020-09-12 13:52] VITALS: BP 159/109
== END 2020-09-12 12:55 | disposition home or self-care (01) ==
LOC: ED 11:48
DX: J02.9 Acute pharyngitis, unspecified (principal); I10 Essential (primary) hypertension; J45.909 Unspecified asthma, uncomplicated; Z79.899 Other long term (current) drug therapy
CPT/HCPCS: 99281

== ENCOUNTER 2020-09-14 21:07 | Emergency (ER) | payer SELFPAY ==
[2020-09-14 21:57] LABS: Basophils # (Auto) 0.1 K/mm3 (0.0-0.1); Basophils % (Auto) 0.9 % (0.0-1.8); Eosinophils # (Auto) 0.6 K/mm3 (0.0-0.4); Eosinophils % (Auto) 7.8 % (0.0-4.3); Hematocrit 37.4 % (35.5-45.6); Hemoglobin 13.4 gm/dl (11.8-15.2); Lymphocytes # (Auto) 1.5 K/mm3 (1.2-5.4); Lymphocytes % (Auto) 19.8 % (13.4-35.0); Mean Corpuscular HGB Conc 36 % (32-34); Mean Corpuscular Volume 95 fl (84-94); Monocytes # (Auto) 0.6 K/mm3 (0.0-0.8); Monocytes % (Auto) 7.5 % (0.0-7.3); Platelet Count 362 K/mm3 (140-440); Red Blood Count 3.95 M/mm3 (3.65-5.03); Red Cell Distribution Width 13.1 % (13.2-15.2)
[2020-09-14 22:15] LABS: Albumin 4.1 g/dL (3.9-5); Calcium 8.8 mg/dL (8.4-10.2)
[2020-09-14] MEDS ORDERED: amLODIPine 5 MG TAB PO ONE (23:45)
--- NOTE | 2020-09-15 01:19 | Emergency Department Report ---
ED General Adult HPI - General Chief complaint: Dizziness Stated complaint: DIZZY/HIGH BLOOD PRESSURE Source: patient Mode of arrival: Ambulatory Limitations: No Limitations - History of Present Illness Initial comments: Patient is a 40-year-old white male with a history of asthma and hypertension and who is not on any medication for hypertension presents to the ED with complaint of acute onset persistently elevated blood pressure with lightheadedness, nausea and diaphoresis for the last 6 hours after walking around at the supermarket doing shopping most of the day. Patient states that he had to drink a lot of Gatorade when he felt lightheaded and decided come to the ED for evaluation because he suspected his blood pressure was high. Patient states that he has a scheduled appointment with his primary care physician in 5 days in order to be evaluated for hypertension although he had been advised 2 days ago during his visit to the ED for streptococcal pharyngitis that his blood pressure was significantly elevated and needed to be addressed. Patient denies chest pain, shortness of breath, syncope, vomiting, abdominal pain, traumatic injury, neck pain, back pain, fever, chills, dizziness or numbness and tingling or weakness of upper and lower extremities bilaterally or facial numbness and tingling or vision changes. MD Complaint: lightheadedness; elevated blood pressure -: Sudden, hour(s) (6) Location: head Radiation: non-radiation Severity scale (0 -10): 2 Quality: dull Consistency: intermittent Improves with: none Worsens with: movement Associated Symptoms: denies other symptoms, diaphoresis, malaise, nausea/vomiting, other (Lightheadedness ). denies: confusion, chest pain, cough, fever/chills, headaches, loss of appetite, rash, seizure, shortness of breath, syncope, weakness Treatments Prior to Arrival: none - Related Data Previous Rx's Medication Instructions Recorded Last Taken Type Albuterol Mdi (or & Nicu Only) 2 puff IH QID PRN #8.5 gram 06/08/19 Unknown Rx [ProAir HFA Inhaler] Cyclobenzaprine [Flexeril] 10 mg PO TID PRN #10 tablet 06/25/20 Unknown Rx Ibuprofen [Motrin] 800 mg PO Q8HR PRN #30 tablet 06/25/20 Unknown Rx predniSONE [Deltasone] 20 mg PO DAILY #5 tablet 06/25/20 Unknown Rx traMADoL [Ultram] 50 mg PO Q6HR PRN #10 tablet 06/25/20 Unknown Rx Azithromycin [Zithromax Z-MARGUERITE] 0 mg PO DAILY #6 tab 09/12/20 Unknown Rx Ibuprofen [Motrin 800 MG tab] 800 mg PO Q8HR PRN #15 tablet 09/12/20 Unknown Rx amLODIPine 10 mg PO DAILY #30 tab 09/15/20 Unknown Rx Allergies Allergy/AdvReac Type Severity Reaction Status Date / Time Penicillins Allergy Unknown Verified 09/23/18 11:32 ED Review of Systems ROS: Stated complaint: DIZZY/HIGH BLOOD PRESSURE Other details as noted in HPI Constitutional: malaise, other (Lightheadedness, nausea and elevated blood pressure). denies: chills, fever Eyes: denies: eye pain, eye discharge, vision change ENT: denies: ear pain, throat pain Respiratory: denies: cough, shortness of breath, wheezing Cardiovascular: denies: chest pain, palpitations Endocrine: no symptoms reported Gastrointestinal: denies: abdominal pain, nausea, diarrhea Genitourinary: denies: urgency, dysuria Musculoskeletal: denies: back pain, joint swelling, arthralgia Skin: denies: rash, lesions Neurological: denies: headache, weakness, paresthesias Psychiatric: denies: anxiety, depression Hematological/Lymphatic: denies: easy bleeding, easy bruising ED Past Medical Hx - Past Medical History Hx Hypertension: Yes Hx Asthma: Yes Additional medical history: Bronchitis and sinusitis - Surgical History Hx Open Heart Surgery: Yes (age 10 months) - Social History Smoking Status: Never Smoker - Medications Home Medications: Home Medications Medication Instructions Recorded Confirmed Last Taken Type Albuterol Mdi (or & Nicu Only) 2 puff IH QID PRN #8.5 gram 06/08/19 Unknown Rx [ProAir HFA Inhaler] Cyclobenzaprine [Flexeril] 10 mg PO TID PRN #10 tablet 06/25/20 Unknown Rx Ibuprofen [Motrin] 800 mg PO Q8HR PRN #30 tablet 06/25/20 Unknown Rx predniSONE [Deltasone] 20 mg PO DAILY #5 tablet 06/25/20 Unknown Rx traMADoL [Ultram] 50 mg PO Q6HR PRN #10 tablet 06/25/20 Unknown Rx Azithromycin [Zithromax Z-MARGUERITE] 0 mg PO DAILY #6 tab 09/12/20 Unknown Rx Ibuprofen [Motrin 800 MG tab] 800 mg PO Q8HR PRN #15 tablet 09/12/20 Unknown Rx amLODIPine 10 mg PO DAILY #30 tab 09/15/20 Unknown Rx ED Physical Exam - General Limitations: No Limitations General appearance: alert, in no apparent distress - Head Head exam: Present: atraumatic, normocephalic, normal inspection - Eye Eye exam: Present: normal appearance, PERRL, EOMI Pupils: Present: normal accommodation - ENT ENT exam: Present: normal exam, normal orophraynx, mucous membranes moist, TM's normal bilaterally, normal external ear exam - Neck Neck exam: Present: normal inspection, full ROM - Respiratory Respiratory exam: Present: normal lung sounds bilaterally. Absent: respiratory distress, wheezes, rales, rhonchi, chest wall tenderness, accessory muscle use, decreased breath sounds, prolonged expiratory - Cardiovascular Cardiovascular Exam: Present: regular rate, normal rhythm, normal heart sounds. Absent: systolic murmur, diastolic murmur, rubs, gallop - GI/Abdominal GI/Abdominal exam: Present: soft, normal bowel sounds. Absent: tenderness, gu arding, rebound, hyperactive bowel sounds, hypoactive bowel sounds, organomegaly, mass - Extremities Exam Extremities exam: Present: normal inspection, full ROM, normal capillary refill - Back Exam Back exam: Present: normal inspection, full ROM. Absent: tenderness, CVA tenderness (R), CVA tenderness (L), muscle spasm, paraspinal tenderness, vertebral tenderness - Neurological Exam Neurological exam: Present: alert, oriented X3, CN II-XII intact, normal gait, reflexes normal - Psychiatric Psychiatric exam: Present: normal affect, normal mood - Skin Skin exam: Present: warm, dry, intact, normal color. Absent: rash ED Course Vital Signs 09/14/20 09/15/20 21:36 00:01 Temperature 98.2 F Pulse Rate 93 H 86 Respiratory 18 Rate Blood Pressure 175/111 156/112 O2 Sat by Pulse 95 Oximetry ED Medical Decision Making - Lab Data Result diagrams: 09/14/20 21:42 09/14/20 21:42 - EKG Data EKG shows normal: sinus rhythm Rate: normal - EKG Data Interpretation: normal EKG, other (Right bundle branch block) 09/15/20 01:24 EKG shows normal sinus rhythm with a ventricular rate of [address] or T wave abnormalities but right bundle branch block - Medical Decision Making This is a 40-year-old white male with a history of asthma and hypertension and who is not on any medication for hypertension presents to the ED with complaint of acute onset persistently elevated blood pressure with lightheadedness, nausea and diaphoresis for the last 6 hours after walking around at the supermarket doing shopping most of the day. Patient states that he had to drink a lot of Gatorade when he felt lightheaded and decided come to the ED for evaluation because he suspected his blood pressure was high. Patient states that he has a scheduled appointment with his primary care physician in 5 days in order to be evaluated for hypertension although he had been advised 2 days ago during his visit to the ED for streptococcal pharyngitis that his blood pressure was significantly elevated and needed to be addressed. In the ED, patient is alert and oriented x3 and is not in any distress but hypertensive, and afebrile in triage. Lab test results were reviewed and are all nonactionable except for slightly elevated creatinine of 1.4, which is suspected to be due to dehydration. Patient was treated in the ED with amlodipine 5 mg p.o. x1 and on reevaluation, patient's blood pressure significantly improved. Patient was therefore discharged home on amlodipine 10 mg p.o. daily and advised to follow- up with his primary care physician as previously scheduled in 5 days or return to the ED immediately if symptoms get worse. - Differential Diagnosis ACS; dehydration; uncontrolled hypertension; anxiety, dizziness Critical care attestation.: If time is entered above; I have spent that time in minutes in the direct care of this critically ill patient, excluding procedure time. ED Disposition Clinical Impression: Uncontrolled stage 2 hypertension, Intermittent lightheadedness, Dehydration Disposition: DC-01 TO HOME OR SELFCARE Is pt being admited?: No Does the pt Need Aspirin: No Condition: Stable Instructions: Hypertension (ED), Dehydration, Adult, [id number], Hypertension, Adult, [id number] Additional Instructions: Take medication with food, drink plenty of fluids and follow-up with your primary care physician in 7 to 10 days for reevaluation. Return to the ED i mmediately if symptoms get worse. Prescriptions: amLODIPine 10 mg PO DAILY #30 tab Referrals: [facility] [Provider Group] - 3-5 Days Time of Disposition: 01:16 Print Language: NEPALESE
[2020-09-15 01:29] VITALS: BP 152/102
--- NOTE | 2020-09-15 13:49 | Electrocardiograph Report ---
[facility] Test Date: 2020-09-14 Test Time: 21:39:39 Pat Name: DIMITRIS CASE Department: Room: Gender: M [employer]: : 1980 Requested By: JOHN SALINAS Order Number: [id number] Reading MD: Abner Augustin Measurements Intervals [place] Rate: 88 P: 61 WA: 148 QRS: -63 QRSD: 155 T: 32 QT: 406 QTc: 492 Interpretive Statements Sinus rhythm RBBB and LAFB No previous ECG available for comparison Electronically Signed On 09-15-2020 13:48:38 EDT by Abner Augustin
== END 2020-09-15 01:29 | disposition home or self-care (01) ==
LOC: ED 21:07
DX: I10 Essential (primary) hypertension (principal); E86.0 Dehydration; R42 Dizziness and giddiness; J45.909 Unspecified asthma, uncomplicated; Z79.899 Other long term (current) drug therapy; Z88.0 Allergy status to penicillin
CPT/HCPCS: 36415; 80053; 84484; 85025; 93005; 99283

== ENCOUNTER 2020-10-09 13:30 | Emergency (ER) | payer SELFPAY ==
--- NOTE | 2020-10-09 14:15 | Emergency Department Report ---
ED ENT HPI - General Chief complaint: Sore Throat Stated complaint: SORE THROAT Time Seen by Provider: 10/09/20 13:50 Source: patient Mode of arrival: Ambulatory Limitations: No Limitations - History of Present Illness Initial comments: 40-year-old male with a past medical history of hypertension presents to the ER today with complaints of sore throat. Patient states that his symptoms started last night. He reports difficulty swallowing due to pain and he states that he feels like his throat is swollen and burning. Patient states that he coughed o nce this morning and he states that he noticed something red mixed in with his sputum and he was not sure if it was blood. He reports some mild nasal congestion but no rhinorrhea or significant coughing. He denies any fever or chills. He denies having any difficulty opening his mouth or been able to control his secretions. He denies any known ill contacts. MD complaint: sore throat - Related Data Previous Rx's Medication Instructions Recorded Last Taken Type Albuterol Mdi (or & Nicu Only) 2 puff IH QID PRN #8.5 gram 06/08/19 Unknown Rx [ProAir HFA Inhaler] Ibuprofen [Motrin] 800 mg PO Q8HR PRN #30 tablet 06/25/20 Unknown Rx amLODIPine 10 mg PO DAILY #30 tab 09/15/20 Unknown Rx Clindamycin [Clindamycin CAP] 300 mg PO Q8H #30 cap 10/09/20 Unknown Rx Ibuprofen [Motrin 800 MG tab] 800 mg PO Q8HR PRN #15 tablet 10/09/20 Unknown Rx Allergies Allergy/AdvReac Type Severity Reaction Status Date / Time Penicillins Allergy Unknown Verified 09/23/18 11:32 ED Dental HPI - General Chief complaint: Sore Throat Stated complaint: SORE THROAT Time Seen by Provider: 10/09/20 13:50 Source: patient Mode of arrival: Ambulatory Limitations: No Limitations - Related Data Previous Rx's Medication Instructions Recorded Last Taken Type Albuterol Mdi (or & Nicu Only) 2 puff IH QID PRN #8.5 gram 06/08/19 Unknown Rx [ProAir HFA Inhaler] Ibuprofen [Motrin] 800 mg PO Q8HR PRN #30 tablet 06/25/20 Unknown Rx amLODIPine 10 mg PO DAILY #30 tab 09/15/20 Unknown Rx Clindamycin [Clindamycin CAP] 300 mg PO Q8H #30 cap 10/09/20 Unknown Rx Ibuprofen [Motrin 800 MG tab] 800 mg PO Q8HR PRN #15 tablet 10/09/20 Unknown Rx Allergies Allergy/AdvReac Type Severity Reaction Status Date / Time Penicillins Allergy Unknown Verified 09/23/18 11:32 ED Review of Systems ROS: Stated complaint: SORE THROAT Other details as noted in HPI Comment: All other systems reviewed and negative Constitutional: denies: chills, diaphoresis, fever, malaise, weakness ENT: throat pain Respiratory: denies: cough, shortness of breath, SOB with exertion, SOB at rest, wheezing Cardiovascular: denies: chest pain, palpitations, dyspnea on exertion, edema, syncope, paroxysmal nocturnal dyspnea Endocrine: no symptoms reported Gastrointestinal: denies: abdominal pain, nausea, vomiting, diarrhea, constipation, hematemesis, melena, hematochezia Genitourinary: denies: urgency, dysuria, frequency, hematuria, discharge, testicular pain, testicular mass Musculoskeletal: denies: back pain, joint swelling, arthralgia Skin: denies: rash, lesions Neurological: denies: headache, weakness, paresthesias Psychiatric: denies: anxiety, depression, auditory hallucinations, visual hallucinations, homicidal thoughts, suicidal thoughts Hematological/Lymphatic: denies: easy bleeding, easy bruising, swollen glands ED Past Medical Hx - Past Medical History Hx Hypertension: Yes Hx Asthma: Yes Additional medical history: Bronchitis and sinusitis - Surgical History Hx Open Heart Surgery: Yes (age 10 months) - Social History Smoking Status: Never Smoker Substance Use Type: None - Medications Home Medications: Home Medications Medication Instructions Recorded Confirmed Last Taken Type Albuterol Mdi (or & Nicu Only) 2 puff IH QID PRN #8.5 gram 06/08/19 Unknown Rx [ProAir HFA Inhaler] Ibuprofen [Motrin] 800 mg PO Q8HR PRN #30 tablet 06/25/20 Unknown Rx amLODIPine 10 mg PO DAILY #30 tab 09/15/20 Unknown Rx Clindamycin [Clindamycin CAP] 300 mg PO Q8H #30 cap 10/09/20 Unknown Rx Ibuprofen [Motrin 800 MG tab] 800 mg PO Q8HR PRN #15 tablet 10/09/20 Unknown Rx ED Physical Exam - General Limitations: No Limitations General appearance: alert, in no apparent distress - Head Head exam: Present: atraumatic, normocephalic, normal inspection - Eye Eye exam: Present: normal appearance, PERRL, EOMI Pupils: Present: normal accommodation - ENT ENT exam: Present: mucous membranes moist - Expanded ENT Exam Expanded Mouth exam: Absent: drooling, trismus, muffled voice, tongue normal, tongue elevation, laceration Throat exam: Positive: tonsillar erythema, tonsillomegaly, other (Mild swelling and erythema to the uvula but no deviation). Negative: tonsillar exudate, R peritonsillar mass, L peritonsillar mass - Neck Neck exam: Present: normal inspection, full ROM. Absent: meningismus - Respiratory Respiratory exam: Present: normal lung sounds bilaterally. Absent: respiratory distress, rales, rhonchi - Cardiovascular Cardiovascular Exam: Present: regular rate, normal rhythm, normal heart sounds - GI/Abdominal GI/Abdominal exam: Present: soft. Absent: distended, tenderness, guarding, rebound - Neurological Exam Neurological exam: Present: alert, oriented X3, CN II-XII intact, normal gait - Psychiatric Psychiatric exam: Present: normal affect, normal mood ED Course Vital Signs 10/09/20 10/09/20 10/09/20 13:38 15:08 15:51 Temperature 98.3 F Pulse Rate 95 H 85 Respiratory 18 18 Rate Blood Pressure 157/106 Blood Pressure 117/88 [Left] O2 Sat by Pulse 100 Oximetry ED Medical Decision Making - Medical Decision Making Patient is well appearing, not toxic and not in any acute distress. He has no trismus on exam, controlling secretions well, his airway is patent and no stridor. He is not in any respiratory distress. Physical exam does not suggest peritonsillar abscess, Delon angina, sepsis or any other significant emergent problems requiring further work-up at this time. Patient will be treated for possible strep infection. Discussed suspected diagnosis and treatment plan with patient. Patient expressed onset of instructions and agree with plan. Patient was stable at time of discharge. Critical care attestation.: If time is entered above; I have spent that time in minutes in the direct care of this critically ill patient, excluding procedure time. ED Disposition Clinical Impression: Tonsillitis Disposition: DC- TO HOME OR SELFCARE Is pt being admited?: No Does the pt Need Aspirin: No Condition: Stable Instructions: Tonsillitis, [id number] Additional Instructions: Take the motrin, amoxicillin and the medrol dose pack as prescribed. Drink lots of fluids. Follow up closely with PCP. Return to ED if worse. Prescriptions: Clindamycin [Clindamycin CAP] 300 mg PO Q8H #30 cap Ibuprofen [Motrin 800 MG tab] 800 mg PO Q8HR PRN #15 tablet PRN Reason: pain Referrals: LORIN ROSS MD [Staff Physician] - 3-5 Days Forms: Work/School Release Form(ED) Time of Disposition: 15:19
[2020-10-09] MEDS ORDERED: KETOROLAC 60 MG/2 ML INJ IM ONE (14:35)
[2020-10-09] MEDS ORDERED: dexAMETHasone 20 MG/5 ML VIAL IM ONE (14:35)
[2020-10-09 15:52] VITALS: BP 117/88
== END 2020-10-09 15:58 | disposition home or self-care (01) ==
LOC: ED 13:30
DX: J03.90 Acute tonsillitis, unspecified (principal); I10 Essential (primary) hypertension; J45.909 Unspecified asthma, uncomplicated; Z98.890 Other specified postprocedural states; Z79.899 Other long term (current) drug therapy; Z88.0 Allergy status to penicillin
CPT/HCPCS: 96372; 99282; J1100; J1885

== ENCOUNTER 2020-11-19 12:00 | Emergency (ER) | payer SELFPAY ==
[2020-11-19] MEDS ORDERED: KETOROLAC 60 MG/2 ML INJ IM ONE (14:07)
[2020-11-19] MEDS ORDERED: HYDROcodone/ACETAMINOPHEN 5-325 MG TAB PO ONE (14:07)
--- NOTE | 2020-11-19 14:16 | Emergency Department Report ---
ED General Adult HPI - General Chief complaint: Back Pain/Injury Stated complaint: BACK PAIN Time Seen by Provider: 11/19/20 12:37 Source: patient Mode of arrival: Ambulatory Limitations: No Limitations - History of Present Illness Initial comments: 40-year-old male patient presents with complaints of sudden onset of low back pain today. Patient states he was lifting a 100 pound item at work today and upon standing up got sudden low back pain. He denies any difficulty with ambulation, loss of bladder/bowel control, numbness/tingling/weak ness/saddle paresthesias. Patient rates his pain as a 9/10 in severity and describes it as a tightness in sharp pain. Pain is nonradiating. He states history of sciatica. -: Sudden - Related Data Previous Rx's Medication Instructions Recorded Last Taken Type Albuterol Mdi (or & Nicu Only) 2 puff IH QID PRN #8.5 gram 06/08/19 Unknown Rx [ProAir HFA Inhaler] Ibuprofen [Motrin] 800 mg PO Q8HR PRN #30 tablet 06/25/20 Unknown Rx amLODIPine 10 mg PO DAILY #30 tab 09/15/20 Unknown Rx Clindamycin [Clindamycin CAP] 300 mg PO Q8H #30 cap 10/09/20 Unknown Rx Ibuprofen [Motrin 800 MG tab] 800 mg PO Q8HR PRN #15 tablet 10/09/20 Unknown Rx Acetaminophen/Codeine [Tylenol 1 tab PO Q8H PRN #5 tab 11/19/20 Unknown Rx /Codeine # 3 tab] Naproxen 500 mg PO BID PRN #20 tablet 11/19/20 Unknown Rx methOCARBAMOL [Robaxin TAB] 750 - 1,500 mg PO Q8H PRN #30 11/19/20 Unknown Rx tablet Allergies Allergy/AdvReac Type Severity Reaction Status Date / Time Penicillins Allergy Unknown Verified 09/23/18 11:32 ED Review of Systems ROS: Stated complaint: BACK PAIN Other details as noted in HPI Gastrointestinal: denies: constipation Genitourinary: denies: frequency, hematuria Neurological: denies: weakness, numbness, paresthesias, abnormal gait ED Past Medical Hx - Past Medical History Hx Hypertension: Yes Hx Asthma: Yes Additional medical history: Bronchitis and sinusitis - Surgical History Hx Open Heart Surgery: Yes (age 10 months) - Social History Smoking Status: Never Smoker - Medications Home Medications: Home Medications Medication Instructions Recorded Confirmed Last Taken Type Albuterol Mdi (or & Nicu Only) 2 puff IH QID PRN #8.5 gram 06/08/19 Unknown Rx [ProAir HFA Inhaler] Ibuprofen [Motrin] 800 mg PO Q8HR PRN #30 tablet 06/25/20 Unknown Rx amLODIPine 10 mg PO DAILY #30 tab 09/15/20 Unknown Rx Clindamycin [Clindamycin CAP] 300 mg PO Q8H #30 cap 10/09/20 Unknown Rx Ibuprofen [Motrin 800 MG tab] 800 mg PO Q8HR PRN #15 tablet 10/09/20 Unknown Rx Acetaminophen/Codeine [Tylenol 1 tab PO Q8H PRN #5 tab 11/19/20 Unknown Rx /Codeine # 3 tab] Naproxen 500 mg PO BID PRN #20 tablet 11/19/20 Unknown Rx methOCARBAMOL [Robaxin TAB] 750 - 1,500 mg PO Q8H PRN #30 11/19/20 Unknown Rx tablet ED Physical Exam - General Limitations: No Limitations General appearance: alert, in no apparent distress, obese - Head Head exam: Present: atraumatic, normocephalic - Respiratory Respiratory exam: Absent: respiratory distress - Cardiovascular Cardiovascular Exam: Present: regular rate - Extremities Exam Extremities exam: Present: full ROM - Back Exam Back exam: Present: full ROM, paraspinal tenderness (Bilateral lower lumbar), vertebral tenderness (Minimal lower lumbar;) - Expanded Back Exam Expanded Back exam: Absent: saddle anesthesia - Neurological Exam Neurological exam: Present: alert, oriented X3, normal gait. Absent: motor sensory deficit - Expanded Neurological Exam Expanded Sensory exam: Lower Extremity Light Touch: Normal Motor strength exam: RLE: 5, LLE: 5 - Psychiatric Psychiatric exam: Present: normal affect, normal mood - Skin Skin exam: Present: warm, dry, intact, normal color. Absent: rash, diaphoretic ED Course Vital Signs 11/19/20 11/19/20 12:22 14:47 Temperature 98.4 F Pulse Rate 93 H 87 Respiratory 18 18 Rate Blood Pressure 133/94 Blood Pressure 139/91 [Left] O2 Sat by Pulse 92 98 Oximetry ED Medical Decision Making - Medical Decision Making 40-year-old male patient presents with complaints of sudden onset of low back pain today. Patient states he was lifting a 100 pound item at work today and upon standing up got sudden low back pain. He denies any difficulty with ambulation, loss of bladder/bowel control, numbness/tingling/weakness/saddle paresthesias. Patient rates his pain as a 9/10 in severity and describes it as a tightness in sharp pain. Pain is nonradiating. He states history of sciatica. Minimal tenderness noted to lower lumbar spine without obvious deformity, however there is significant tenderness over the low back muscles; suspect lumbar strain; patient given Toradol Robaxin. He denies any cauda equina symptoms. He has full range of motion of the spine. Will treat for strain icing, stretching, NSAIDs. Recommend follow-up with primary care doctor in 3 days. Discussed in great detail signs and symptoms that should prompt immediate return to the emergency department in detail patient verbalized understanding Critical care attestation.: If time is entered above; I have spent that time in minutes in the direct care of this critically ill patient, excluding procedure time. ED Disposition Clinical Impression: Lower back injury Disposition: DC-01 TO HOME OR SELFCARE Is pt being admited?: No Condition: Stable Instructions: Lumbosacral Strain, Low Back Sprain or Strain Rehab-SportsMed Prescriptions: Naproxen 500 mg PO BID PRN #20 tablet PRN Reason: Pain methOCARBAMOL [Robaxin TAB] 750 - 1,500 mg PO Q8H PRN #30 tablet PRN Reason: Muscle spasm/tightness Acetaminophen/Codeine [Tylenol /Codeine # 3 tab] 1 tab PO Q8H PRN #5 tab PRN Reason: Pain , Severe (7-10) Referrals: [facility] [Provider Group] - 3-5 Days Forms: Work/School Release Form(ED)
[2020-11-19 14:48] VITALS: BP 139/91
== END 2020-11-19 15:42 | disposition home or self-care (01) ==
LOC: ED 12:00
DX: S39.92XA Unspecified injury of lower back, initial encounter (principal); I10 Essential (primary) hypertension; J45.909 Unspecified asthma, uncomplicated; Z88.0 Allergy status to penicillin; Z79.899 Other long term (current) drug therapy; X58.XXXA Exposure to other specified factors, initial encounter; Y93.89 Activity, other specified; Y92.89 Other specified places as the place of occurrence of the external cause; Y99.8 Other external cause status
CPT/HCPCS: 96372; 99282; J1885

== ENCOUNTER 2021-02-27 09:33 | Emergency (ER) | payer SELFPAY ==
[2021-02-27] MEDS ORDERED: KETOROLAC 60 MG/2 ML INJ IM ONE (10:28)
[2021-02-27] MEDS ORDERED: dexAMETHasone 20 MG/5 ML VIAL IM ONE (10:28)
--- NOTE | 2021-02-27 10:29 | Emergency Department Report ---
ED Extremity Problem HPI - General Chief complaint: Extremity Injury, Upper Stated complaint: LT SHOULDER PAINS Time Seen by Provider: 02/27/21 10:15 Source: patient Mode of arrival: Ambulatory Limitations: No Limitations - History of Present Illness Initial comments: 40-year-old male with a past medical history of asthmatic bronchitis presents to the ER today with a complaint of left posterior shoulder pain. Patient states that his pain started about 4 days ago. 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 He was doing this all day. He states later that evening he started having pain in his posterior left shoulder. He is unable to tell of any particular injury. He states that the pain is worse when he moves his left shoulder, he also feels that in the left shoulder when he moves his right shoulder. He states that he has been taking [id number] ibuprofen, Goody powders, and resting but he feels like his symptoms is getting worse. He denies any apparent bruising or swelling to the area. He denies any radiation of the pain down into the arm, back or into his chest. He denies any isolated chest pain. He denies any associated shortness of breath, cough or wheezing. He denies any fever or chills. Triage vitals noted, patient was mildly tachycardic and his O2 sat was 93% on room air. I measured patient pulse oximetry myself, and his O2 sat maintained b etween 90% and 92% at rest. Questioned patient again about his symptoms, he again denies any shortness of breath, wheezing, chest pain, lower extremity swelling, or calf pain. He states that he has not had any recent flareups of his asthma. He has been using his inhaler every other day if he needs it. He denies any recent travel, or ill contacts. He denies any history of heart disease. He denies any history of PE or DVT and he denies any risk factors for PE or DVT. MD Complaint: joint paint -: Gradual, days(s) (4) - Related Data Previous Rx's Medication Instructions Recorded Last Taken Type Albuterol Mdi (or & Nicu Only) 2 puff IH QID PRN #8.5 gram 06/08/19 Unknown Rx [ProAir HFA Inhaler] amLODIPine 10 mg PO DAILY #30 tab 09/15/20 Unknown Rx Clindamycin [Clindamycin CAP] 300 mg PO Q8H #30 cap 10/09/20 Unknown Rx methOCARBAMOL [Robaxin TAB] 750 - 1,500 mg PO Q8H PRN #30 11/19/20 Unknown Rx tablet Acetaminophen/Codeine [Tylenol 1 tab PO Q8H PRN #5 tab 02/27/21 Unknown Rx /Codeine # 3 tab] Ketorolac [Toradol] 10 mg PO Q6H PRN #20 tablet 02/27/21 Unknown Rx Allergies Allergy/AdvReac Type Severity Reaction Status Date / Time Penicillins Allergy Unknown Verified 09/23/18 11:32 ED Review of Systems ROS: Stated complaint: LT SHOULDER PAINS Other details as noted in HPI Comment: All other systems reviewed and negative Constitutional: denies: chills, fever Eyes: denies: eye pain, eye discharge, vision change ENT: denies: ear pain, throat pain, dental pain, hearing loss, epistaxis, congestion Respiratory: denies: cough, shortness of breath, SOB with exertion, SOB at rest, wheezing Cardiovascular: denies: chest pain, palpitations, dyspnea on exertion, edema, syncope, other Gastrointestinal: denies: abdominal pain, nausea, vomiting, diarrhea, constipation, hematemesis, melena Genitourinary: denies: urgency, dysuria, frequency, hematuria, discharge, testicular pain, testicular mass Musculoskeletal: denies: back pain, joint swelling, arthralgia, myalgia Skin: denies: rash, lesions, change in color, change in hair/nails, pruritus Neurological: denies: headache, weakness, paresthesias, confusion, abnormal gait, vertigo Psychiatric: denies: anxiety, depression, auditory hallucinations, visual hallucinations, homicidal thoughts, suicidal thoughts Hematological/Lymphatic: denies: easy bleeding, swollen glands ED Past Medical Hx - Past Medical History Previous Medical History?: Yes Hx Hypertension: Yes Hx Asthma: Yes Additional medical history: Bronchitis and sinusitis - Surgical History Past Surgical History?: Yes Hx Open Heart Surgery: Yes (age 10 months) - Social History Smoking Status: Never Smoker - Medications Home Medications: Home Medications Medication Instructions Recorded Confirmed Last Taken Type Albuterol Mdi (or & Nicu Only) 2 puff IH QID PRN #8.5 gram 06/08/19 Unknown Rx [ProAir HFA Inhaler] amLODIPine 10 mg PO DAILY #30 tab 09/15/20 Unknown Rx Clindamycin [Clindamycin CAP] 300 mg PO Q8H #30 cap 10/09/20 Unknown Rx methOCARBAMOL [Robaxin TAB] 750 - 1,500 mg PO Q8H PRN #30 11/19/20 Unknown Rx tablet Acetaminophen/Codeine [Tylenol 1 tab PO Q8H PRN #5 tab 02/27/21 Unknown Rx /Codeine # 3 tab] Ketorolac [Toradol] 10 mg PO Q6H PRN #20 tablet 02/27/21 Unknown Rx ED Physical Exam - General Limitations: No Limitations General appearance: alert, in no apparent distress - Head Head exam: Present: atraumatic, normocephalic, normal inspection - Eye Eye exam: Present: normal appearance, PERRL, EOMI Pupils: Present: normal accommodation - ENT ENT exam: Present: normal exam, mucous membranes moist - Neck Neck exam: Present: normal inspection, full ROM. Absent: meningismus - Respiratory Respiratory exam: Present: normal lung sounds bilaterally. Absent: respiratory distress, wheezes, rales, rhonchi, stridor - Cardiovascular Cardiovascular Exam: Present: regular rate, normal rhythm, normal heart sounds - GI/Abdominal GI/Abdominal exam: Present: soft. Absent: distended, tenderness, guarding, r ebound - Extremities Exam Extremities exam: Present: normal inspection, full ROM. Absent: tenderness, pedal edema, calf tenderness - Expanded Upper Extremity Exam Left Shoulder Exam: Present: full ROM, tenderness (point ttp left posterior elbow over the muscle of scapular). Absent: normal inspection, swelling, abrasion, laceration, ecchymosis, crepidus, dislocation, erythema, tenderness over AC joint Vascular: Present: normal capillary refill, radial pulse (Normal ). Absent: vascular compromise - Neurological Exam Neurological exam: Present: alert, oriented X3, CN II-XII intact, normal gait - Psychiatric Psychiatric exam: Present: normal affect, normal mood - Skin Skin exam: Present: intact ED Course Vital Signs 02/27/21 02/27/21 02/27/21 10:05 12:34 12:44 Temperature 98 F Pulse Rate 102 H 89 88 Respiratory 16 18 16 Rate Blood Pressure 138/95 Blood Pressure 146/93 128/87 [Left] O2 Sat by Pulse 93 95 95 Oximetry ED Medical Decision Making - Lab Data Result diagrams: 02/27/21 10:53 02/27/21 10:53 - EKG Data EKG shows normal: sinus rhythm Rate: normal (85) No standard instances Rhythm: NSR [place]/QRS: RBBB, LAHB/LAFB - EKG Data When compared to previous EKG there are: no significant change Interpretation: no acute changes - Radiology Data Radiology results: report reviewed Patient: DIMITRIS CASE MR#: [id number] : 1980 A cct:[id number] Age/Sex: 40 / M ADM Date: 02/27/21 Loc: ED Attending Dr: Ordering Physician: KTAHY FLORES Date of Service: 02/27/21 Procedure(s): XR chest routine 2V Accession Number(s): [id number] cc: KATHY FLORES Fluoro Time In Minutes: CHEST 2 VIEWS INDICATION: Hypoxia. COMPARISON: 06/08/2019 FINDINGS: Support devices: None. Heart: Within normal limits. Lungs/pleura: No acute air space or interstitial disease. No pneumothorax. Additional findings: None. IMPRESSION: No acute findings. LEFT SHOULDER 3 VIEWS INDICATION: Left shoulder pain. COMPARISON: None. IMPRESSION: No acute osseous or soft tissue abnormality. No significant DJD. Signer Name: Jesus Decker Jr, MD Signed: 02/27/2021 11:26 AM Workstation Name: [id number] Transcribed By: TTR Dictated By: JESUS DECKER JR, MD Electronically Authenticated By: JESUS DECKER JR, MD Signed Date/Time: 02/27/21 1126 DD/ 1125 TD/TT: - Medical Decision Making 40-year-old male with a past medical history of asthmatic bronchitis presents to the ER today with a complaint of left posterior shoulder pain. Patient states that his pain started about 4 days ago. 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 He was doing this all day. He states later that evening he started having pain in his posterior left shoulder. He is unable to tell of any particular injury. He states that the pain is worse when he moves his left shoulder, he also feels that in the left shoulder when he moves his right shoulder. He states that he has been taking [id number] ibuprofen, Goody powders, and resting but he feels like his symptoms is getting worse. He denies any apparent bruising or swelling to the area. He denies any radiation of the pain down into the arm, back or into his chest. He denies any isolated chest pain. He denies any associated shortness of breath, cough or wheezing. He denies any fever or chills. Triage vitals noted, patient was mildly tachycardic and his O2 sat was 93% on room air. I measured patient pulse oximetry myself, and his O2 sat maintained between 90% and 92% at rest. Questioned patient again about his symptoms, he again denies any shortness of breath, wheezing, chest pain, lower extremity swelling, or calf pain. He states that he has not had any recent flareups of his asthma. He has been using his inhaler every other day if he needs it. He denies any recent travel, or ill contacts. He denies any history of heart disease. He denies any history of PE or DVT and he denies any risk factors for PE or DVT. chest x-ray and x-ray of shoulder shows nothing acute. CBC, and CMP unremarkable. Troponin is normal, D-dimer was normal. EKG showed no significant dysrhythmia, acute ischemic changes or significant dysrhythmias. When compared to his previous EKGs there was no significant changes. Patient repeat vital signs shows that his O2 sat is now 95% on room air. Patient has point tenderness to his left posterior shoulder and he does have pain with range of motion, I suspect that his pain is musculoskeletal. His episodic hypoxia could be related to his history of chronic asthmatic bronchitis. Reviewed his past vital signs, and it does show that he has had low O2 sats in the past. Currently he is not wheezing and is not in any respiratory distress and he is has no shortness of breath and therefore he was not given neb tx during stay. Discussed results with patient, discussed suspected diagnosis for shoulder pain with him, recommend that he continues to use his albuterol MDI as needed but following up with PCP for possible referral to pulmonology and PFT testing. Patient expressed understanding of instructions and agree with plan. Patient was stable at time of discharge. Critical care attestation.: If time is entered above; I have spent that time in minutes in the direct care of this critically ill patient, excluding procedure time. ED Disposition Clinical Impression: Shoulder pain, left, Shoulder strain, Hypoxic episode, Asthmatic bronchitis , chronic Disposition: 01 HOME / SELF CARE / HOMELESS Is pt being admited?: No Does the pt Need Aspirin: No Condition: Stable Instructions: Hypoxia, Shoulder Pain, Shoulder Sprain, Chronic Bronchitis, Adult, Chronic Bronchitis (ED) Additional Instructions: Take the toradol and tylenol 3 as prescribed for your shoulder pain. I do recommend continue using your albuterol MDI as needed and following up with your PCP and or getting referral to information receptionist from PCP. Follow up with job placement specialist listed on discharge instructions if your symptoms persist. Return to ED if worse. Prescriptions: Ketorolac [Toradol] 10 mg PO Q6H PRN #20 tablet PRN Reason: Pain Acetaminophen/Codeine [Tylenol /Codeine # 3 tab] 1 tab PO Q8H PRN #5 tab PRN Reason: Pain , Severe (7-10) Referrals: HAROON SEPULVEDA MD [Staff Physician] - 3-5 Days [facility] [Provider Group] - 3-5 Days KARTHIK CHÁVEZ MD [Referring] - 3-5 Days Forms: Work/School Release Form(ED) Time of Disposition: 13:11 Print Language: IVORIAN
[2021-02-27] MEDS ORDERED: HYDROcodone/ACETAMINOPHEN 5-325 MG TAB PO ONE (10:46)
[2021-02-27 11:26] LABS: Basophils # (Auto) 0.1 K/mm3 (0.0-0.1); Basophils % (Auto) 0.8 % (0.0-1.8); Eosinophils # (Auto) 0.4 K/mm3 (0.0-0.4); Eosinophils % (Auto) 4.9 % (0.0-4.3); Hematocrit 41.4 % (35.5-45.6); Hemoglobin 14.6 gm/dl (11.8-15.2); Lymphocytes # (Auto) 1.3 K/mm3 (1.2-5.4); Lymphocytes % (Auto) 15.5 % (13.4-35.0); Mean Corpuscular HGB Conc 35 % (32-34); Mean Corpuscular Volume 92 fl (84-94); Monocytes # (Auto) 0.7 K/mm3 (0.0-0.8); Monocytes % (Auto) 8.2 % (0.0-7.3); Platelet Count 340 K/mm3 (140-440); Red Blood Count 4.49 M/mm3 (3.65-5.03); Red Cell Distribution Width 13.7 % (13.2-15.2)
--- NOTE | 2021-02-27 11:30 | XRay Report ---
CHEST 2 VIEWS INDICATION: Hypoxia. COMPARISON: 06/08/2019 FINDINGS: Support devices: None. Heart: Within normal limits. Lungs/pleura: No acute air space or interstitial disease. No pneumothorax. Additional findings: None. IMPRESSION: No acute findings. LEFT SHOULDER 3 VIEWS INDICATION: Left shoulder pain. COMPARISON: None. IMPRESSION: No acute osseous or soft tissue abnormality. No significant DJD. Signer Name: Jesus Decker Jr, MD Signed: 02/27/2021 11:26 AM Workstation Name: [id number]
[2021-02-27 11:52] LABS: Alanine Aminotransferase 19 units/L (7-56); Albumin 4.2 g/dL (3.9-5); BUN/Creatinine Ratio 14; Blood Urea Nitrogen 14 mg/dL (9-20); Calcium 9.1 mg/dL (8.4-10.2); Hemolysis Index 34
[2021-02-27 12:45] VITALS: BP 128/87
--- NOTE | 2021-03-03 10:55 | Electrocardiograph Report ---
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
== END 2021-02-27 13:43 | disposition home or self-care (01) ==
LOC: ED 09:33
DX: R09.02 Hypoxemia (principal); J44.9 Chronic obstructive pulmonary disease, unspecified; S46.812A Strain of other muscles, fascia and tendons at shoulder and upper arm level, left arm, initial encounter; I10 Essential (primary) hypertension; Z79.899 Other long term (current) drug therapy; Z88.0 Allergy status to penicillin; X58.XXXA Exposure to other specified factors, initial encounter; Y93.89 Activity, other specified; Y92.89 Other specified places as the place of occurrence of the external cause; Y99.8 Other external cause status
CPT/HCPCS: 36415; 71046; 73030; 80053; 84484; 85025; 85379; 93005; 96372; 99284; J1100; J1885

== ENCOUNTER 2021-03-17 11:06 | Inpatient (IN) | payer SELFPAY ==
[2021-03-17] MEDS ORDERED: ALBUTEROL 2.5 MG/3 ML NEBU IH ONE (11:29)
[2021-03-17] MEDS ORDERED: IPRATROPIUM 0.02% NEBU 2.5 ML IH ONE (11:29)
[2021-03-17] MEDS ORDERED: dexAMETHasone 20 MG/5 ML VIAL IM ONE (11:29)
--- NOTE | 2021-03-17 11:33 | Emergency Department Report ---
- General Chief Complaint: Upper Respiratory Infection Stated Complaint: STREP THROAT Time Seen by Provider: 03/17/21 11:25 Source: patient Mode of arrival: Ambulatory Limitations: No Limitations - History of Present Illness Initial Comments: Patient is a 40-year-old male presents emergency room with complaints of a cough that began a week ago. He has associated yellow mucus production. Patient has associated shortness of breath, chest tightness, wheezing, itchy dry throat. He denies any fever, vomiting, diarrhea. He has a past medical history of asthma and states he ran out of his inhaler yesterday. He states he also has a nebulizer machine. Patient states he is a non-smoker. He has an allergy to penicillin. Patient states he is fully vaccinated for COVID-19. He states that his daughter also had similar symptoms. pt states he does have a history of chronic hypertension but reports he did not take his blood pressure medication this morning, he states he does not remember the name of it but has it at home - Related Data Previous Rx's Medication Instructions Recorded Last Taken Type Albuterol Mdi (or & Nicu Only) 2 puff IH QID PRN #8.5 gram 06/08/19 Unknown Rx [ProAir HFA Inhaler] amLODIPine 10 mg PO DAILY #30 tab 09/15/20 Unknown Rx Clindamycin [Clindamycin CAP] 300 mg PO Q8H #30 cap 10/09/20 Unknown Rx methOCARBAMOL [Robaxin TAB] 750 - 1,500 mg PO Q8H PRN #30 11/19/20 Unknown Rx tablet Acetaminophen/Codeine [Tylenol 1 tab PO Q8H PRN #5 tab 02/27/21 Unknown Rx /Codeine # 3 tab] Ketorolac [Toradol] 10 mg PO Q6H PRN #20 tablet 02/27/21 Unknown Rx Allergies Allergy/AdvReac Type Severity Reaction Status Date / Time Penicillins Allergy Unknown Verified 03/17/21 11:21 ED Review of Systems ROS: Stated complaint: STREP THROAT Other details as noted in HPI Comment: All other systems reviewed and negative ED Past Medical Hx - Past Medical History Hx Hypertension: Yes Hx Asthma: Yes Additional medical history: Bronchitis and sinusitis - Surgical History Hx Open Heart Surgery: Yes (age 10 months) - Social History Smoking Status: Never Smoker - Medications Home Medications: Home Medications Medication Instructions Recorded Confirmed Last Taken Type Albuterol Mdi (or & Nicu Only) 2 puff IH QID PRN #8.5 gram 06/08/19 Unknown Rx [ProAir HFA Inhaler] amLODIPine 10 mg PO DAILY #30 tab 09/15/20 Unknown Rx Clindamycin [Clindamycin CAP] 300 mg PO Q8H #30 cap 10/09/20 Unknown Rx methOCARBAMOL [Robaxin TAB] 750 - 1,500 mg PO Q8H PRN #30 11/19/20 Unknown Rx tablet Acetaminophen/Codeine [Tylenol 1 tab PO Q8H PRN #5 tab 02/27/21 Unknown Rx /Codeine # 3 tab] Ketorolac [Toradol] 10 mg PO Q6H PRN #20 tablet 02/27/21 Unknown Rx ED Physical Exam - General Limitations: No Limitations General appearance: alert, in no apparent distress - Head Head exam: Present: atraumatic, normocephalic - Eye Eye exam: Present: normal appearance - ENT ENT exam: Present: normal orophraynx, mucous membranes moist - Respiratory Respiratory exam: Present: wheezes (expiratory bilaterally ), prolonged expiratory. Absent: respiratory distress, rales, rhonchi, stridor, chest wall tenderness, accessory muscle use, decreased breath sounds - Cardiovascular Cardiovascular Exam: Present: regular rate, normal rhythm, normal heart sounds. Absent: systolic murmur, diastolic murmur, rubs, gallop - Neurological Exam Neurological exam: Present: alert, oriented X3 - Psychiatric Psychiatric exam: Present: normal affect, normal mood - Skin Skin exam: Present: warm, dry, intact ED Course Vital Signs 03/17/21 03/17/21 03/17/21 11:16 12:10 12:16 Temperature 98.0 F Pulse Rate 89 Respiratory 20 Rate Blood Pressure 165/109 Blood Pressure [Right] O2 Sat by Pulse 99 92 94 Oximetry 03/17/21 03/17/21 03/17/21 12:30 12:46 13:00 Temperature Pulse Rate 65 Respiratory 16 Rate Blood Pressure 145/110 145/110 161/100 Blood Pressure [Right] O2 Sat by Pulse 92 91 94 Oximetry 03/17/21 03/17/21 03/17/21 13:16 13:19 13:30 Temperature Pulse Rate 80 88 77 Respiratory 21 20 25 H Rate Blood Pressure 161/100 151/109 Blood Pressure 151/109 [Right] O2 Sat by Pulse 92 92 92 Oximetry 03/17/21 03/17/21 03/17/21 13:46 14:00 14:16 Temperature Pulse Rate 82 77 91 H Respiratory 15 18 26 H Rate Blood Pressure 157/109 151/109 151/109 Blood Pressure [Right] O2 Sat by Pulse 91 91 93 Oximetry 03/17/21 03/17/21 03/17/21 14:30 14:46 14:49 Temperature Pulse Rate 76 81 90 Respiratory 15 12 Rate Blood Pressure 148/99 148/99 167/100 Blood Pressure [Right] O2 Sat by Pulse 91 92 Oximetry 03/17/21 03/17/21 03/17/21 14:57 16:37 16:38 Temperature Pulse Rate 81 89 Respiratory 14 18 14 Rate Blood Pressure Blood Pressure 175/112 146/108 [Right] O2 Sat by Pulse 94 95 95 Oximetry - Reevaluation(s) Reevaluation #1: 03/17/21 12:[address] Russell, ER attending who reviewed x-ray images, he states that given patient's chronic hypertension will need to rule out CHF, advised to order labs, EKG - Consultations Consultation #1: 03/17/[id number] Hernandez, hospitalist who will accept and resume care of patient, will admit to hospitalist service ED Medical Decision Making - Lab Data Result diagrams: 03/17/21 13:06 03/17/21 13:06 Lab Results 03/17/21 03/17/21 Range/Units 13:06 13:06 WBC 8.1 (4.5-11.0) K/mm3 RBC 4.56 (3.65-5.03) M/mm3 Hgb 14.2 (11.8-15.2) gm/dl Hct 42.5 (35.5-45.6) % MCV 93 (84-94) fl MCH 31 (28-32) pg MCHC 34 (32-34) % RDW 14.4 (13.2-15.2) % Plt Count 281 (140-440) K/mm3 Lymph % (Auto) 17.8 (13.4-35.0) % [place] % (Auto) 6.4 (0.0-7.3) % Eos % (Auto) 4.3 (0.0-4.3) % Baso % (Auto) 1.1 (0.0-1.8) % Lymph # (Auto) 1.4 (1.2-5.4) K/mm3 [place] # (Auto) 0.5 (0.0-0.8) K/mm3 Eos # (Auto) 0.4 (0.0-0.4) K/mm3 Baso # (Auto) 0.1 (0.0-0.1) K/mm3 Seg Neutrophils % 70.4 H (40.0-70.0) % Seg Neutrophils # 5.7 (1.8-7.7) K/mm3 Sodium 140 (137-145) mmol/L Potassium 3.8 (3.6-5.0) mmol/L Chloride 100.7 (98-107) mmol/L Carbon Dioxide 26 (22-30) mmol/L Anion Gap 17 mmol/L BUN 10 (9-20) mg/dL Creatinine 1.0 (0.8-1.3) mg/dL Estimated GFR > 60 ml/min BUN/Creatinine Ratio 10 % Glucose 109 H (75-100) mg/dL Calcium 9.1 (8.4-10.2) mg/dL Total Bilirubin 0.40 (0.1-1.2) mg/dL AST 17 (5-40) units/L ALT 26 (7-56) units/L Alkaline Phosphatase 68 (35-129) units/L Troponin T < 0.010 (0.00-0.029) ng/mL NT-Pro-B Natriuret Pep 195.2 (0-450) pg/mL Total Protein 7.3 (6.3-8.2) g/dL Albumin 4.1 (3.9-5) g/dL Albumin/Globulin Ratio 1.3 % Vital Signs 03/17/21 03/17/21 03/17/21 11:16 12:10 12:16 Temperature 98.0 F Pulse Rate 89 Respiratory 20 Rate Blood Pressure 165/109 Blood Pressure [Right] O2 Sat by Pulse 99 92 94 Oximetry 03/17/21 03/17/21 03/17/21 12:30 12:46 13:00 Temperature Pulse Rate 65 Respiratory 16 Rate Blood Pressure 145/110 145/110 161/100 Blood Pressure [Right] O2 Sat by Pulse 92 91 94 Oximetry 03/17/21 03/17/21 03/17/21 13:16 13:19 13:30 Temperature Pulse Rate 80 88 77 Respiratory 21 20 25 H Rate Blood Pressure 161/100 151/109 Blood Pressure 151/109 [Right] O2 Sat by Pulse 92 92 92 Oximetry 03/17/21 03/17/21 03/17/21 13:46 14:00 14:16 Temperature Pulse Rate 82 77 91 H Respiratory 15 18 26 H Rate Blood Pressure 157/109 151/109 151/109 Blood Pressure [Right] O2 Sat by Pulse 91 91 93 Oximetry 03/17/21 03/17/21 03/17/21 14:30 14:46 14:49 Temperature Pulse Rate 76 81 90 Respiratory 15 12 Rate Blood Pressure 148/99 148/99 167/100 Blood Pressure [Right] O2 Sat by Pulse 91 92 Oximetry 03/17/21 03/17/21 03/17/21 14:57 16:37 16:38 Temperature Pulse Rate 81 89 Respiratory 14 18 14 Rate Blood Pressure Blood Pressure 175/112 146/108 [Right] O2 Sat by Pulse 94 95 95 Oximetry - EKG Data EKG shows normal: sinus rhythm Rate: normal - EKG Data 03/17/21 19:35 Left axis deviation Right bundle branch block Left anterior fascicular block No STEMI - Radiology Data Radiology results: report reviewed CHEST 2 VIEWS INDICATION: cough, wheezing, sob. COMPARISON: 02/27/2021 FINDINGS: SUPPORT DEVICES: None. HEART: Within normal limits. LUNGS/PLEURA: Mild central peribronchial thickening in the left greater than right lung with minimal streaky left greater than right basilar airspace disease. No effusion. No pneumothorax. ADDITIONAL FINDINGS: None. IMPRESSION: 1. Lung findings as above. Signer Name: Pritesh Hammer MD Signed: 03/17/2021 11:59 AM Workstation Name: [id number] Transcribed By: JW Dictated By: Pritesh Hammer MD Electronically Authenticated By: Pritesh Hammer MD Signed Date/Time: 03/17/211158 DD/ 57 TD/TT: - Medical Decision Making Patient is a 40-year-old male presents emergency room with complaints of a cough that began a week ago. He has associated yellow mucus production. Patient has associated shortness of breath, chest tightness, wheezing, itchy dry throat. He denies any fever, vomiting, diarrhea. He has a past medical history of asthma an d states he ran out of his inhaler yesterday. He states he also has a nebulizer machine. Patient states he is a non-smoker. He has an allergy to penicillin. Patient states he is fully vaccinated for COVID-19. He states that his daughter also had similar symptoms. pt states he does have a history of chronic hypertension but reports he did not take his blood pressure medication this morning, he states he does not remember the name of it but has it at home. Initial vitals with elevated blood pressure. On exam patient has expiratory wheezing bilaterally. Chest x-ray Mild central peribronchial thickening in the left greater than right lung with minimal streaky left greater than right basilar airspace disease. No effusion. No pneumothorax.Discussed case with Dr. Russell, ER attending who reviewed x-ray images, he states that given patient's chronic hypertension will need to rule out CHF, advised to order labs, EKG. labs are stable. Troponin is negative. BNP is normal. D-dimer is negative. EKG with left anterior fascicular block, right bundle branch block, left axis deviation, no STEMI. Patient given nebulizer treatment and steroids with improvement of wheezing. Patient ambulated in the emergency department and his oxygen saturation drops to 86% on room air. Discussed case with Dr. Russell, ER attending advised x-ray findings could be related to Covid pneumonia, patient given ceftriaxone and azithromycin, he recommended admission. Spoke to Dr. Hernandez, hospitalist who will accept and resume care of patient, will admit to hospital service. Discussed all results with patient and answered questions and he is agreeable with admission. Critical care attestation.: If time is entered above; I have spent that time in minutes in the direct care of this critically ill patient, excluding procedure time. ED Disposition Clinical Impression: Suspected COVID-19 virus infection, Hypertensive urgency, Pulmonary infiltrates on CXR Acute respiratory failure Qualifiers: Respiratory failure complication: hypoxia Qualified Code(s): J96.01 - Acute respiratory failure with hypoxia Asthma exacerbation Qualifiers: Asthma severity: unspecified severity Asthma persistence: unspecified Qualified Code(s): J45.901 - Unspecified asthma with (acute) exacerbation Disposition: 09 ADMITTED INPATIENT Is pt being admited?: Yes Does the pt Need Aspirin: No Condition: Fair Time of Disposition: 14:58
--- NOTE | 2021-03-17 12:04 | XRay Report ---
CHEST 2 VIEWS INDICATION: cough, wheezing, sob. COMPARISON: 02/27/2021 FINDINGS: SUPPORT DEVICES: None. HEART: Within normal limits. LUNGS/PLEURA: Mild central peribronchial thickening in the left greater than right lung with minimal streaky left greater than right basilar airspace disease. No effusion. No pneumothorax. ADDITIONAL FINDINGS: None. IMPRESSION: 1. Lung findings as above. Signer Name: Pritesh Hammer MD Signed: 03/17/2021 11:59 AM Workstation Name: [id number]
[2021-03-17] MEDS ORDERED: hydrALAZINE 10 MG TAB PO ONE ×2 (13:22→15:00)
[2021-03-17 13:36] LABS: Basophils # (Auto) 0.1 K/mm3 (0.0-0.1); Basophils % (Auto) 1.1 % (0.0-1.8); Eosinophils # (Auto) 0.4 K/mm3 (0.0-0.4); Eosinophils % (Auto) 4.3 % (0.0-4.3); Hematocrit 42.5 % (35.5-45.6); Hemoglobin 14.2 gm/dl (11.8-15.2); Lymphocytes # (Auto) 1.4 K/mm3 (1.2-5.4); Lymphocytes % (Auto) 17.8 % (13.4-35.0); Mean Corpuscular HGB Conc 34 % (32-34); Mean Corpuscular Volume 93 fl (84-94); Monocytes # (Auto) 0.5 K/mm3 (0.0-0.8); Monocytes % (Auto) 6.4 % (0.0-7.3); Platelet Count 281 K/mm3 (140-440); Red Blood Count 4.56 M/mm3 (3.65-5.03); Red Cell Distribution Width 14.4 % (13.2-15.2)
[2021-03-17 14:00] LABS: Alanine Aminotransferase 26 units/L (7-56); Albumin 4.1 g/dL (3.9-5); BUN/Creatinine Ratio 10; Blood Urea Nitrogen 10 mg/dL (9-20); Calcium 9.1 mg/dL (8.4-10.2); Hemolysis Index 5
[2021-03-17] MEDS ORDERED: AZITHROMYCIN/NS 500 MG/250 ML 500 MG/250 ML BAG IV ONE (14:55)
[2021-03-17] MEDS ORDERED: cefTRIAXone/NS 2 GM/100 ML 2 GM/100 ML BAG IV ONE (14:55)
[2021-03-17] MEDS ORDERED: ALBUTEROL 8.5 GM MDI INHALATION IH PRN (21:43)
[2021-03-17] MEDS ORDERED: ACETAMINOPHEN 325 MG TAB PO PRN (21:44)
[2021-03-17] MEDS ORDERED: ONDANSETRON 4 MG/2 ML INJ IV PRN (21:44)
[2021-03-17] MEDS ORDERED: oxyCODONE /ACETAMINOPHEN 5-325MG TAB PO PRN (21:46)
[2021-03-17] MEDS ORDERED: HYDROmorphone 1 MG/1 ML INJ IV PRN (21:46)
[2021-03-17] MEDS ORDERED: IPRATROPIUM/ALBUTEROL SULFATE 3 ML AMPUL.NEB IH PRN (21:47)
--- NOTE | 2021-03-17 21:58 | History and Physical Report ---
History of Present Illness Date of examination: 03/17/21 Date of admission: 03/17/21 14:58 Chief complaint: Shortness of breath for 1 week History of present illness: 40-year-old male with history of hypertension as well comes in for cough and shortness of breath of 1 week duration. Patient also has wheezing. Patient is coughing up yellow sputum. No fever or chills. Patient is vaccinated with Covid vaccine on of September 29 and 11/01 with the moderna vaccine. Patient feels better after treatments with albuterol. Patient is hypoxic on ambulation with oxygen saturation dropping to 9082%. Patient being admitted to rule out Covid infection. Patient has bilateral pneumonia on the chest x-ray. Patient has no anosmia or loss of taste. - Past Medical History --Hypertension: Yes --Asthma: Yes Additional medical history: Bronchitis and sinusitis - Surgical History Hx Open Heart Surgery: Yes (age 10 months) - Social History --Smoking Status: Never Smoker Family history --Htn - Medications Home Medications: Home Medications Medication Instructions Recorded Confirmed Last Taken Type Albuterol Mdi (or & Nicu Only) 2 puff IH QID PRN #8.5 gram 06/08/19 Unknown Rx [ProAir HFA Inhaler] amLODIPine 10 mg PO DAILY #30 tab 09/15/20 Unknown Rx Clindamycin [Clindamycin CAP] 300 mg PO Q8H #30 cap 10/09/20 Unknown Rx methOCARBAMOL [Robaxin TAB] 750 - 1,500 mg PO Q8H PRN #30 11/19/20 Unknown Rx tablet Acetaminophen/Codeine [Tylenol 1 tab PO Q8H PRN #5 tab 02/27/21 Unknown Rx /Codeine # 3 tab] Ketorolac [Toradol] 10 mg PO Q6H PRN #20 tablet 02/27/21 Unknown Rx Review of Systems ROS: Stated complaint: STREP THROAT Other details as noted in HPI Comment: All other systems reviewed and negative Medications and Allergies Allergies Allergy/AdvReac Type Severity Reaction Status Date / Time Penicillins Allergy Unknown Verified 03/17/21 11:21 Exam - Constitutional Vitals: Temp Pulse Resp BP Pulse Ox 98.0 F 99 H 18 137/77 93 03/17/21 11:16 03/17/21 19:51 03/17/21 19:51 03/17/21 19:51 03/17/21 19:51 General appearance: Present: no acute distress, mild distress, well-nourished - EENT Eyes: Present: PERRL ENT: hearing intact, clear oral mucosa - Neck Neck: Present: supple, normal ROM - Respiratory Respiratory effort: normal Respiratory: bilateral: CTA, rhonchi, wheezing - Cardiovascular Heart rate: 78 Rhythm: regular Heart Sounds: Present: S1 & S2. Absent: rub, click - Extremities Extremities: no ischemia, pulses intact, pulses symmetrical, No edema Peripheral Pulses: within normal limits - Abdominal General gastrointestinal: Present: soft, non-tender, non-distended, normal bowel sounds Male genitourinary: Present: normal - Integumentary Integumentary: Present: clear, warm, dry - Musculoskeletal Musculoskeletal: gait normal, strength equal bilaterally - Psychiatric Psychiatric: appropriate mood/affect, intact judgment & insight - Neurologic Neurologic: CNII-XII intact, moves all extremities HEART Score - HEART Score Troponin: Troponin T < 0.010 ng/mL (0.00-0.029) 03/17/21 13:06 Results - Labs CBC & Chem 7: 03/18/21 05:57 03/18/21 05:57 Labs: Laboratory Last Values WBC 8.1 K/mm3 (4.5-11.0) 03/17/21 13:06 RBC 4.56 M/mm3 (3.65-5.03) 03/17/21 13:06 Hgb 14.2 gm/dl (11.8-15.2) 03/17/21 13:06 Hct 42.5 % (35.5-45.6) 03/17/21 13:06 MCV 93 fl (84-94) 03/17/21 13:06 MCH 31 pg (28-32) 03/17/21 13:06 MCHC 34 % (32-34) 03/17/21 13:06 RDW 14.4 % (13.2-15.2) 03/17/21 13:06 Plt Count 281 K/mm3 (140-440) 03/17/21 13:06 Lymph % (Auto) 17.8 % (13.4-35.0) 03/17/21 13:06 [place] % (Auto) 6.4 % (0.0-7.3) 03/17/21 13:06 Eos % (Auto) 4.3 % (0.0-4.3) 03/17/21 13:06 Baso % (Auto) 1.1 % (0.0-1.8) 03/17/21 13:06 Lymph # (Auto) 1.4 K/mm3 (1.2-5.4) 03/17/21 13:06 [place] # (Auto) 0.5 K/mm3 (0.0-0.8) 03/17/21 13:06 Eos # (Auto) 0.4 K/mm3 (0.0-0.4) 03/17/21 13:06 Baso # (Auto) 0.1 K/mm3 (0.0-0.1) 03/17/21 13:06 Seg Neutrophils % 70.4 % (40.0-70.0) H 03/17/21 13:06 Seg Neutrophils # 5.7 K/mm3 (1.8-7.7) 03/17/21 13:06 D-Dimer 146.95 ng/mlDDU (0-234) 03/17/21 15:22 Sodium 140 mmol/L (137-145) 03/17/21 13:06 Potassium 3.8 mmol/L (3.6-5.0) 03/17/21 13:06 Chloride 100.7 mmol/L (98-107) 03/17/21 13:06 Carbon Dioxide 26 mmol/L (22-30) 03/17/21 13:06 Anion Gap 17 mmol/L 03/17/21 13:06 BUN 10 mg/dL (9-20) 03/17/21 13:06 Creatinine 1.0 mg/dL (0.8-1.3) 03/17/21 13:06 Estimated GFR > 60 ml/min 03/17/21 13:06 BUN/Creatinine Ratio 10 % 03/17/21 13:06 Glucose 109 mg/dL (75-100) H 03/17/21 13:06 Calcium 9.1 mg/dL (8.4-10.2) 03/17/21 13:06 Ferritin 43.1 ng/mL (30.0-300.0) 03/17/21 15:22 Total Bilirubin 0.40 mg/dL (0.1-1.2) 03/17/21 13:06 AST 17 units/L (5-40) 03/17/21 13:06 ALT 26 units/L (7-56) 03/17/21 13:06 Alkaline Phosphatase 68 units/L (35-129) 03/17/21 13:06 Lactate Dehydrogenase 248 units/L (91-180) H 03/17/21 15:00 Troponin T < 0.010 ng/mL (0.00-0.029) 03/17/21 13:06 C-Reactive Protein 1.00 mg/dL (0.00-1.30) 03/17/21 15:00 NT-Pro-B Natriuret Pep 195.2 pg/mL (0-450) 03/17/21 13:06 Total Protein 7.3 g/dL (6.3-8.2) 03/17/21 13:06 Albumin 4.1 g/dL (3.9-5) 03/17/21 13:06 Albumin/Globulin Ratio 1.3 % 03/17/21 13:06 Short CBC 03/17/21 03/18/21 Range/Units 13:06 05:57 WBC 8.1 9.0 (4.5-11.0) K/mm3 Hgb 14.2 13.8 (11.8-15.2) gm/dl Hct 42.5 42.2 (35.5-45.6) % Plt Count 281 315 (140-440) K/mm3 BMP 03/17/21 03/18/21 13:06 05:57 Sodium 140 139 Potassium 3.8 4.5 Chloride 100.7 102.0 Carbon Dioxide 26 24 BUN 10 16 Creatinine 1.0 1.0 Glucose 109 H 159 H Calcium 9.1 9.0 Cardiac Enzymes 03/17/21 Range/Units 13:06 Troponin T < 0.010 (0.00-0.029) ng/mL Liver Function 03/17/21 03/18/21 Range/Units 13:06 05:57 Total Bilirubin 0.40 0.20 (0.1-1.2) mg/dL AST 17 14 (5-40) units/L ALT 26 26 (7-56) units/L Alkaline Phosphatase 68 65 (35-129) units/L Albumin 4.1 4.2 (3.9-5) g/dL - Imaging and Cardiology Chest x-ray: report reviewed Imaging and Cardiology: Chest x-ray Mild central peribronchial thickening in the left greater than the right lung with minimal streaky left greater than right basilar airspace disease Assessment and Plan Advance Directives: Yes (Full code) VTE prophylaxis?: Chemical Plan of care discussed with patient/family: Yes - Patient Problems (1) Acute respiratory failure with hypoxia Current Visit: Yes Status: Acute Plan to address problem: Oxygen supplementation as necessary IV Solu-Medrol because of asthma Nebulizer treatments Patient wants to go home Patient to be discharged if coronavirus PCR is negative and patient is stable for discharge (2) Asthma exacerbation Current Visit: Yes Status: Acute Qualifiers: Asthma severity: unspecified severity Asthma persistence: unspecified Qualified Code(s): J45.901 - Unspecified asthma with (acute) exacerbation Plan to address problem: Nebulizer treatments [id number], IV antibiotics and IV Solu-Medrol 60 mg every 8 hours. (3) Bilateral pneumonia Current Visit: Yes Status: Acute Plan to address problem: IV Rocephin and Zithromax for atypicals. IV Solu-Medrol for asthma. (4) Suspected COVID-19 virus infection Current Visit: Yes Status: Acute Plan to address problem: Patient is vaccinated Coronavirus PCR in a.m. (5) Hypertension Current Visit: Yes Status: Chronic Qualifiers: Hypertension type: primary hypertension Qualified Code(s): I10 - Essential (primary) hypertension Plan to address problem: Continue antihypertensives (6) DVT prophylaxis Current Visit: Yes Status: Acute Plan to address problem: On anticoagulation GI prophylaxis
[2021-03-17] MEDS: amLODIPine 10 MG TAB PO SCH (22:47)
[2021-03-17] MEDS: FAMOTIDINE 20 MG TAB PO SCH (22:47)
[2021-03-17] MEDS: methylPREDNISolone Sod Succinate 40 MG/1 ML INJ IV SCH (22:47)
[2021-03-17] MEDS: ENOXAPARIN 40 MG/0.4 ML INJ SUB-Q SCH (22:47)
[2021-03-17] MEDS: SODIUM CHLORIDE 0.9% 1000 ML 1,000 ML IV SCH (22:48)
[2021-03-18] MEDS: methylPREDNISolone Sod Succinate 40 MG/1 ML INJ IV SCH (05:01)
[2021-03-18 06:33] LABS: Basophils % (Auto) 0.1 % (0.0-1.8); Hematocrit 42.2 % (35.5-45.6); Hemoglobin 13.8 gm/dl (11.8-15.2); Lymphocytes # (Auto) 0.8 K/mm3 (1.2-5.4); Lymphocytes % (Auto) 8.8 % (13.4-35.0); Mean Corpuscular HGB Conc 33 % (32-34); Mean Corpuscular Volume 93 fl (84-94); Monocytes # (Auto) 0.1 K/mm3 (0.0-0.8); Monocytes % (Auto) 1.2 % (0.0-7.3); Platelet Count 315 K/mm3 (140-440); Red Blood Count 4.53 M/mm3 (3.65-5.03); Red Cell Distribution Width 14.4 % (13.2-15.2)
[2021-03-18 06:57] LABS: Alanine Aminotransferase 26 units/L (7-56); Albumin 4.2 g/dL (3.9-5); BUN/Creatinine Ratio 16; Blood Urea Nitrogen 16 mg/dL (9-20); Hemolysis Index 2
[2021-03-18] MEDS: IPRATROPIUM/ALBUTEROL SULFATE 3 ML AMPUL.NEB IH SCH ×2 (08:20→18:20)
[2021-03-18] MEDS ORDERED: cefTRIAXone/NS 2 GM/100 ML 2 GM/100 ML BAG IV SCH (10:00)
[2021-03-18] MEDS ORDERED: AZITHROMYCIN/NS 500 MG/250 ML 500 MG/250 ML BAG IV SCH (10:00)
[2021-03-18] MEDS: SODIUM CHLORIDE 0.9% 1000 ML 1,000 ML IV SCH (10:33)
[2021-03-18] MEDS: FAMOTIDINE 20 MG TAB PO SCH (10:33)
[2021-03-18] MEDS: amLODIPine 10 MG TAB PO SCH (10:34)
[2021-03-18] MEDS: ENOXAPARIN 40 MG/0.4 ML INJ SUB-Q SCH (10:34)
--- NOTE | 2021-03-18 11:03 | Electrocardiograph Report ---
[facility] Test Date: 2021-03-17 Test Time: 12:45:47 Pat Name: DIMITRIS CASE Department: Room: A356 1 Gender: M Broadcast Producer: PATRICIO : [id number] Requested By: ISI KAMARA Order Number: [id number] Reading MD: Amrit Timmons Measurements Intervals [place] Rate: 78 P: 57 VA: 132 QRS: -73 QRSD: 152 T: 45 QT: 440 QTc: 501 Interpretive Statements Sinus rhythm RBBB and LAFB Compared to ECG 02/27/2021 13:11:47 No significant changes Electronically Signed On 03-18-2021 11:03:00 EDT by Amrit Timmons
[2021-03-18 13:03] VITALS: BP 132/93
--- NOTE | 2021-03-18 18:56 | Discharge Summary ---
Providers - Providers Date of Admission: 03/17/21 14:58 Attending physician: JUAN RAMON FAUSTIN MD Primary care physician: NADIR DOMINGUEZ MD Hospitalization Condition: Fair Hospital course: CBC and CMP were unremarkable. CRP and LDH are normal. Chest x-ray showed subtle pneumonia. Patient was admitted and placed on 4 L of O2 and Decadron. He stated that he was a fully vaccinated against COVID-19. Covid test was performed and came as negative. Patient stated that he was breathing better and wanted to go home. He further stated that he could use his mother's home O2 and the mother has a diagnosis of COPD. Patient was advised that he was not medically stable for discharge. Patient left AMA anyway. Disposition: 07 LEFT AGAINST MEDICAL ADVICE Exam - Constitutional Vitals: Temp Pulse Resp BP Pulse Ox 98.0 F 96 H 18 132/93 96 03/18/21 11:33 03/18/21 11:33 03/18/21 11:33 03/18/21 11:33 03/18/21 11:33 Plan Follow up with: NADIR DOMINGUEZ MD [Primary Care Provider] - 7 Days Forms: AMA Form
== END 2021-03-18 14:43 | disposition left against medical advice (07) | DRG 193 ==
LOC: ED 11:06 → 3A 14:58
PROVIDERS: ADMIT Internal Medicine; ATTEND Internal Medicine
DX: J18.9 Pneumonia, unspecified organism (principal); J96.01 Acute respiratory failure with hypoxia; J45.901 Unspecified asthma with (acute) exacerbation; J44.0 Chronic obstructive pulmonary disease with (acute) lower respiratory infection; Z20.822 Contact with and (suspected) exposure to COVID-19; I10 Essential (primary) hypertension; I16.0 Hypertensive urgency
CPT/HCPCS: 36415; 71046; 80053; 82728; 83615; 83880; 84145; 84484; 85025; 85379; 86140; 93005; 94644; G0378; J0456; J0696; J1100; J1170; J1650; J2920; J7030; U0003

== ENCOUNTER 2021-06-02 13:47 | Emergency (ER) | payer SELFPAY ==
--- NOTE | 2021-06-02 17:29 | Emergency Department Report ---
ED General Adult HPI - General Chief complaint: Dyspnea/Respdistress Stated complaint: SOB Time Seen by Provider: 06/02/21 17:02 Source: patient Mode of arrival: Ambulatory Limitations: No Limitations - History of Present Illness Initial comments: 40-year-old male with a past medical history of asthma and hypertension presents to the ER today with complaint of cough and shortness of breath. Patient is a symptom started about 1 week ago. He reports intermittent productive cough, and shortness of breath on exertion and he states that whenever he coughs or take a deep breath he has bilateral rib pain. He states that he has had intermittent diaphoresis and has been wheezing. Patient states that his sputum is clear. He denies any associated rhinorrhea, nasal congestion, fever or chills. He denies any known ill contacts or recent travel. He did get a COVID-19 vaccine, the moderna, the last dose was in Oct 2020. Patient states that he has been using his albuterol nebulizer solution twice a day and has been using his MDI about 3- 4 times a day without much relief. He states that he is mainly concerned because the symptoms feel similar to when he was admitted for pneumonia about a month ago. At the time he was COVID-19 negative. He states that he was hospitalized for 1 night to monitor his oxygen. He states that he has never been admitted jus t for asthma exacerbation in the past. He reports congenital heart disease which required repair but otherwise denies any history of coronary artery disease or any other significant past medical history. MD Complaint: Cough/SOB -: week(s) - Related Data Previous Rx's Medication Instructions Recorded Last Taken Type ALBUTEROL NEB's [Proventil 0.083% 2.5 mg IH QID PRN #30 neb 06/02/21 Unknown Rx NEBS] Albuterol Mdi (or & Nicu Only) 2 puff IH QID PRN #8.5 gram 06/02/21 Unknown Rx [ProAir HFA Inhaler] Promethazine /Codeine 5 - 10 ml PO Q6H PRN #120 ml 06/02/21 Unknown Rx [Phenergan/Codeine 6.25-10 mg/5 ml] predniSONE [Deltasone] 50 mg PO QDAY #5 tab 06/02/21 Unknown Rx Allergies Allergy/AdvReac Type Severity Reaction Status Date / Time Penicillins Allergy Unknown Verified 03/17/21 11:21 ED Review of Systems ROS: Stated complaint: SOB Other details as noted in HPI Comment: All other systems reviewed and negative Constitutional: diaphoresis. denies: chills, fever Eyes: denies: eye pain, eye discharge, vision change ENT: denies: ear pain, throat pain Respiratory: cough, shortness of breath, wheezing Cardiovascular: other (Bilateral rib pain) Gastrointestinal: denies: abdominal pain, nausea, vomiting, diarrhea, c onstipation, hematemesis, melena, hematochezia Genitourinary: denies: urgency, dysuria, frequency, hematuria, discharge, testicular pain, testicular mass Musculoskeletal: denies: back pain, joint swelling, arthralgia, myalgia Skin: denies: rash, lesions, change in color, change in hair/nails, pruritus Neurological: denies: headache, weakness, numbness, paresthesias, confusion, abnormal gait, vertigo Psychiatric: denies: anxiety, depression, auditory hallucinations, visual hallucinations, homicidal thoughts, suicidal thoughts Hematological/Lymphatic: denies: easy bleeding, easy bruising, swollen glands ED Past Medical Hx - Past Medical History Hx Hypertension: Yes Hx Asthma: Yes Additional medical history: Bronchitis and sinusitis - Surgical History Hx Open Heart Surgery: Yes (age 10 months) - Social History Smoking Status: Former Smoker - Medications Home Medications: Home Medications Medication Instructions Recorded Confirmed Last Taken Type ALBUTEROL NEB's [Proventil 0.083% 2.5 mg IH QID PRN #30 neb 06/02/21 Unknown Rx NEBS] Albuterol Mdi (or & Nicu Only) 2 puff IH QID PRN #8.5 gram 06/02/21 Unknown Rx [ProAir HFA Inhaler] Promethazine /Codeine 5 - 10 ml PO Q6H PRN #120 ml 06/02/21 Unknown Rx [Phenergan/Codeine 6.25-10 mg/5 ml] predniSONE [Deltasone] 50 mg PO QDAY #5 tab 06/02/21 Unknown Rx ED Physical Exam - General Limitations: No Limitations General appearance: alert, in no apparent distress - Head Head exam: Present: atraumatic, normocephalic, normal inspection - Eye Eye exam: Present: normal appearance, PERRL, EOMI Pupils: Present: normal accommodation - ENT ENT exam: Present: normal exam, mucous membranes moist - Neck Neck exam: Present: normal inspection, full ROM. Absent: meningismus - Respiratory Respiratory exam: Present: normal lung sounds bilaterally. Absent: respiratory distress, wheezes, rales, rhonchi, stridor - Cardiovascular Cardiovascular Exam: Present: regular rate, normal rhythm, normal heart sounds - GI/Abdominal GI/Abdominal exam: Present: soft. Absent: distended, tenderness, guarding, rebound - Extremities Exam Extremities exam: Present: normal inspection, full ROM. Absent: calf tenderness - Neurological Exam Neurological exam: Present: alert, oriented X3, CN II-XII intact, normal gait - Psychiatric Psychiatric exam: Present: normal affect, normal mood - Skin Skin exam: Present: intact ED Course Vital Signs 06/02/21 06/02/21 15:43 18:03 Temperature 98.3 F 97.8 F Pulse Rate 90 96 H Respiratory 17 20 Rate Blood Pressure 153/113 Blood Pressure 160/114 [Left] O2 Sat by Pulse 96 95 Oximetry ED Medical Decision Making - Radiology Data Radiology results: report reviewed Patient: DIMITRIS CASE MR#: [id number] : 1980 Acct:[id number] Age/Sex: 40 / M ADM Date: 06/02/21 Loc: ED Attending Dr: Ordering Physician: KATHY FLORES Date of Service: 06/02/21 Procedure(s): XR chest routine 2V Accession Number(s): [id number] cc: KATHY FLORES Fluoro Time In Minutes: CHEST 2 VIEWS INDICATION / CLINICAL INFORMATION: cough/sob. COMPARISON: 03/17/21 FINDINGS: SUPPORT DEVICES: None. HEART / MEDIASTINUM: No significant abnormality. LUNGS / PLEURA: No significant pulmonary or pleural abnormality. No pneumothorax. ADDITIONAL FINDINGS: No significant additional findings. IMPRESSION: 1. No acute findings. Interval improvement in the appearance of the lungs. Signer Name: Leti Rodriguez MD Signed: 06/02/2021 5:42 PM Workstation Name: [id number] Transcribed By: DT Dictated By: Fletcher Rodriguez MD Electronically Authenticated By: Fletcher Rodriguez MD Signed Date/Time: 06/02/211741 DD/ 40 TD/TT: - Medical Decision Making 40-year-old male with a past medical history of asthma and hypertension presents to the ER today with complaint of cough and shortness of breath. Patient is a symptom started about 1 week ago. He reports intermittent productive cough, and shortness of breath on exertion and he states that whenever he coughs or take a deep breath he has bilateral rib pain. He states that he has had intermittent diaphoresis and has been wheezing. Patient states that his sputum is clear. He denies any associated rhinorrhea, nasal congestion, fever or chills. He denies any known ill contacts or recent travel. He did get a COVID-19 vaccine, the moderna, the last dose was in Oct 2020. Patient states that he has been using his albuterol nebulizer solution twice a day and has been using his MDI about 3- 4 times a day without much relief. He states that he is mainly concerned because the symptoms feel similar to when he was admitted for pneumonia about a month ago. At that time he was COVID-19 negative. He states that he was hospitalized for 1 night to monitor his oxygen. He states that he has never been admitted just for asthma exacerbation in the past. He reports congenital heart disease which required repair but otherwise denies any history of coronary artery disease or any other significant past medical history. Patient's chest x-ray was negative for anything acute. He is currently sitting comfortably in the chair. He is not in significant distress. He does not have any significant wheezing on exam. His vital signs were reviewed, he is afebrile, not tachycardic or hypoxic. He has no lower extremity swelling or c custodial pain. Suspect patient symptoms could be related to viral illness/asthma. I do suspect likely symptoms to be cardiac related, or related to a PE, significant asthma exacerbation, sepsis, or any other acute emergent conditions warranting emergent treatment, or admission at this time. Patient will be started on prednisone, he has a albuterol nebulizer machine at home and recommends that he use it every 4-6 hours, and uses albuterol inhaler when he goes outside. Patient states that he does have a pulse ox normal at home, recommend that he continue to his monitors his O2 levels at home and if it is persistently less than 92/93% on room air and he has worsening symptoms to return immediately to the ER. Patient expressed understanding of all instructions and agree with plan. Patient was stable at time of discharge. Critical care attestation.: If time is entered above; I have spent that time in minutes in the direct care of this critically ill patient, excluding procedure time. ED Disposition Clinical Impression: Asthmatic bronchitis Disposition: 01 HOME / SELF CARE / HOMELESS Is pt being admited?: No Does the pt Need Aspirin: No Condition: Stable Instructions: Asthma, Adult, Oxyj-an-Sinq, Acute Bronchitis, Adult, Chronic Bronchitis (ED) Additional Instructions: Continue using your albuterol MDI as needed, but if you are at home I do recommend using more of the nebulizer solution every 4 hours to help with any shortness of breath or wheezing. Take the prednisone as prescribed. Take the promethazine with codeine to help with any cough and pain. You may want to consider getting a COVID-19 test and you can have one done at a local pharmacy or urgent care. You can purchase a pulse ox augmented from [id number] to monitor your oxygen, if you oxygen remains persistently less than 92% with worsening symptoms return immediately to the ER. Follow-up with your primary care doctor. Return to the ER if your symptoms worsens or changes in any way. Prescriptions: predniSONE [Deltasone] 50 mg PO QDAY #5 tab Promethazine /Codeine [Phenergan/Codeine 6.25-10 mg/5 ml] 5 - 10 ml PO Q6H PRN #120 ml PRN Reason: cough Albuterol Mdi (or & Nicu Only) [ProAir HFA Inhaler] 2 puff IH QID PRN #8.5 gram PRN Reason: Shortness Of Breath ALBUTEROL NEB's [Proventil 0.083% NEBS] 2.5 mg IH QID PRN #30 neb PRN Reason: Wheezing/SOB Referrals: RADHA RODRIGUES MD [Staff Physician] - 3-5 Days Forms: Work/School Release Form(ED) Time of Disposition: 17:59
--- NOTE | 2021-06-02 17:46 | XRay Report ---
CHEST 2 VIEWS INDICATION / CLINICAL INFORMATION: cough/sob. COMPARISON: 03/17/21 FINDINGS: SUPPORT DEVICES: None. HEART / MEDIASTINUM: No significant abnormality. LUNGS / PLEURA: No significant pulmonary or pleural abnormality. No pneumothorax. ADDITIONAL FINDINGS: No significant additional findings. IMPRESSION: 1. No acute findings. Interval improvement in the appearance of the lungs. Signer Name: Leti Rodriguez MD Signed: 06/02/2021 5:42 PM Workstation Name: [id number]
[2021-06-02 18:08] VITALS: BP 160/114
== END 2021-06-02 18:08 | disposition home or self-care (01) ==
LOC: ED 13:47
DX: J45.909 Unspecified asthma, uncomplicated (principal); I10 Essential (primary) hypertension; Z87.891 Personal history of nicotine dependence
CPT/HCPCS: 71046; 99283

== ENCOUNTER 2021-06-08 10:07 | Emergency (ER) | payer SELFPAY ==
[2021-06-08] MEDS ORDERED: HYDROcodone/ACETAMINOPHEN 5-325 MG TAB PO ONE (11:45)
[2021-06-08] MEDS ORDERED: ACETAMINOPHEN 325 MG TAB PO ONE (11:45)
--- NOTE | 2021-06-08 12:24 | XRay Report ---
LEFT RIBS 5 VIEWS INDICATION / CLINICAL INFORMATION: left rib pain after sneezing. COMPARISON: None available. FINDINGS: RIBS: No acute, displaced fracture or other acute abnormality. LUNGS: No acute findings. No pneumothorax. Signer Name: Jimi Mak MD Signed: 06/08/2021 12:20 PM Workstation Name: [id number]
--- NOTE | 2021-06-08 12:39 | Emergency Department Report ---
ED General Adult HPI - General Chief complaint: Abdominal Pain Stated complaint: PAIN IN RIBS Time Seen by Provider: 06/08/21 11:44 Source: patient Mode of arrival: Ambulatory Limitations: No Limitations - History of Present Illness Initial comments: Patient is a 40-year-old male presents emergency with complaints of left-sided rib pain that began 2 days ago. He states that 2 days ago he had a hard sneeze and felt a sharp pain in his left ribs. He states he has discomfort with coughing, sneezing, taking deep breath. Patient was evaluated in the emergency department on 06/02/2021 for an asthma exacerbation and had x-ray at that time with no acute process. He reports he went to get tested for COVID-19 and it was negative. He denies any fever, vomiting, diarrhea, shortness of breath, hemoptysis, chest pain. Allergy to penicillin. Past medical history of hypertension and asthma. He reports he quit smoking 1 year ago. Severity scale (0 -10): 10 - Related Data Previous Rx's Medication Instructions Recorded Last Taken Type ALBUTEROL NEB's [Proventil 0.083% 2.5 mg IH QID PRN #30 neb 06/02/21 Unknown Rx NEBS] Albuterol Mdi (or & Nicu Only) 2 puff IH QID PRN #8.5 gram 06/02/21 Unknown Rx [ProAir HFA Inhaler] Promethazine /Codeine 5 - 10 ml PO Q6H PRN #120 ml 06/02/21 Unknown Rx [Phenergan/Codeine 6.25-10 mg/5 ml] predniSONE [Deltasone] 50 mg PO QDAY #5 tab 06/02/21 Unknown Rx Naproxen 375 mg PO BID PRN #20 tab 06/08/21 Unknown Rx traMADoL [Ultram 50 MG tab] 50 mg PO Q6HR PRN #12 tablet 06/08/21 Unknown Rx Allergies Allergy/AdvReac Type Severity Reaction Status Date / Time Penicillins Allergy Unknown Verified 03/17/21 11:21 ED Review of Systems ROS: Stated complaint: PAIN IN RIBS Other details as noted in HPI Comment: All other systems reviewed and negative ED Past Medical Hx - Past Medical History Previous Medical History?: Yes Hx Hypertension: Yes Hx Asthma: Yes Additional medical history: Bronchitis and sinusitis - Surgical History Past Surgical History?: Yes Hx Open Heart Surgery: Yes (age 10 months) - Social History Smoking Status: Former Smoker - Medications Home Medications: Home Medications Medication Instructions Recorded Confirmed Last Taken Type ALBUTEROL NEB's [Proventil 0.083% 2.5 mg IH QID PRN #30 neb 06/02/21 Unknown Rx NEBS] Albuterol Mdi (or & Nicu Only) 2 puff IH QID PRN #8.5 gram 06/02/21 Unknown Rx [ProAir HFA Inhaler] Promethazine /Codeine 5 - 10 ml PO Q6H PRN #120 ml 06/02/21 Unknown Rx [Phenergan/Codeine 6.25-10 mg/5 ml] predniSONE [Deltasone] 50 mg PO QDAY #5 tab 06/02/21 Unknown Rx Naproxen 375 mg PO BID PRN #20 tab 06/08/21 Unknown Rx traMADoL [Ultram 50 MG tab] 50 mg PO Q6HR PRN #12 tablet 06/08/21 Unknown Rx ED Physical Exam - General Limitations: No Limitations General appearance: alert, in no apparent distress - Head Head exam: Present: atraumatic, normocephalic - Eye Eye exam: Present: normal appearance - ENT ENT exam: Present: mucous membranes moist - Respiratory Respiratory exam: Present: normal lung sounds bilaterally, chest wall tenderness (ttp to the left anterolateral ribs, no crepitus, no deformity). Absent: respiratory distress, wheezes, rales, rhonchi, stridor, accessory muscle use, decreased breath sounds, prolonged expiratory - Cardiovascular Cardiovascular Exam: Present: regular rate, normal rhythm, normal heart sounds. Absent: systolic murmur, diastolic murmur, rubs, gallop - Neurological Exam Neurological exam: Present: alert, oriented X3 - Psychiatric Psychiatric exam: Present: normal affect, normal mood - Skin Skin exam: Present: warm, dry, intact ED Course Vital Signs 06/08/21 06/08/21 11:33 17:56 Temperature 95 F L Pulse Rate 93 H 90 Respiratory 16 16 Rate Blood Pressure 164/96 164/104 [Left] O2 Sat by Pulse 94 94 Oximetry ED Medical Decision Making - Lab Data Result diagrams: 06/08/21 13:45 06/08/21 13:45 Lab Results 06/08/21 06/08/21 06/08/21 Range/Units 13:45 13:45 13:45 WBC 6.5 (4.5-11.0) K/mm3 RBC 4.44 (3.65-5.03) M/mm3 Hgb 13.8 (11.8-15.2) gm/dl Hct 40.5 (35.5-45.6) % MCV 91 (84-94) fl MCH 31 (28-32) pg MCHC 34 (32-34) % RDW 14.3 (13.2-15.2) % Plt Count 240 (140-440) K/mm3 Lymph % (Auto) 12.9 L (13.4-35.0) % [place] % (Auto) 13.7 H (0.0-7.3) % Eos % (Auto) 4.5 H (0.0-4.3) % Baso % (Auto) 1.4 (0.0-1.8) % Lymph # (Auto) 0.8 L (1.2-5.4) K/mm3 [place] # (Auto) 0.9 H (0.0-0.8) K/mm3 Eos # (Auto) 0.3 (0.0-0.4) K/mm3 Baso # (Auto) 0.1 (0.0-0.1) K/mm3 Seg Neutrophils % 67.5 (40.0-70.0) % Seg Neutrophils # 4.4 (1.8-7.7) K/mm3 D-Dimer 241.38 H (0-234) ng/mlDDU Sodium 141 (137-145) mmol/L Potassium 3.5 L (3.6-5.0) mmol/L Chloride 97.7 L (98-107) mmol/L Carbon Dioxide 27 (22-30) mmol/L Anion Gap 20 mmol/L BUN 11 (9-20) mg/dL Creatinine 0.9 (0.8-1.3) mg/dL Estimated GFR > 60 ml/min BUN/Creatinine Ratio 12 % Glucose 99 (75-100) mg/dL Calcium 8.7 (8.4-10.2) mg/dL Total Bilirubin 0.40 (0.1-1.2) mg/dL AST 37 (5-40) units/L ALT 58 H (7-56) units/L Alkaline Phosphatase 76 (35-129) units/L Total Protein 6.7 (6.3-8.2) g/dL Albumin 3.9 (3.9-5) g/dL Albumin/Globulin Ratio 1.4 % Vital Signs 06/08/21 06/08/21 11:33 17:56 Temperature 95 F L Pulse Rate 93 H 90 Respiratory 16 16 Rate Blood Pressure 164/96 164/104 [Left] O2 Sat by Pulse 94 94 Oximetry - Radiology Data Radiology results: report reviewed Ordering Physician: FRANSISCA CRAWFORD Date of Service: 06/08/21 Procedure(s): XR ribs UNI w PA chest 3+V LT Accession Number(s): [id number] cc: FRANSISCA CRAWFORD Fluoro Time In Minutes: LEFT RIBS 5 VIEWS INDICATION / CLINICAL INFORMATION: left rib pain after sneezing. COMPARISON: None available. FINDINGS: RIBS: No acute, displaced fracture or other acute abnormality. LUNGS: No acute findings. No pneumothorax. Signer Name: Jimi Mak MD Signed: 06/08/2021 12:20 PM Workstation Name: [id number] Transcribed By: SS Dictated By: Jimi Mak MD Electronically Authenticated By: Jimi Mak MD Signed Date/Time: 06/08/21 1220 DD/ 1219 TD/TT: Ordering Physician: FRANSISCA CRAWFORD Date of Service: 06/08/21 Procedure(s): CT angio chest Accession Number(s): [id number] cc: FRANSISCA CRAWFORD CTA CHEST WITH CONTRAST INDICATION / CLINICAL INFORMATION: left rib pain, SOB, pleuritic pain, d-dimer +. TECHNIQUE: Axial CT images were obtained through the chest after injection of Omnipaque 350, 100 cc IV contrast. 3 plane MIP and/or 3D reconstructions were produced. All CT scans at this location are performed using CT dose reduction for ALARA by means of automated exposure control. COMPARISON: None available. FINDINGS: PULMONARY ARTERIES: No pulmonary emboli. THORACIC AORTA: No significant abnormality. HEART: No significant abnormality. CORONARY ARTERY CALCIFICATION: None. MEDIASTINUM / ELIO: No significant abnormality. PLEURA: Small left basilar effusion. No pneumothorax. LUNGS: Left basilar atelectasis. No significant infiltrate. ADDITIONAL FINDINGS: None. UPPER ABDOMEN: No acute findings. SKELETAL STRUCTURES: No significant osseous abnormality. IMPRESSION: 1. No CT evidence for pulmonary embolism. 2. Negative for pneumonia. 3. Suspect small left basilar effusion with associated atelectasis. Signer Name: Nilo Lainez MD Signed: 06/08/2021 4:32 PM Workstation Name: [id number] Transcribed By: ES Dictated By: Nilo Lainez MD Electronically Authenticated By: Nilo Lainez MD Signed Date/Time: 06/08/211631 DD/ 24 TD/TT: - Medical Decision Making Patient is a 40-year-old male presents emergency with complaints of left-sided rib pain that began 2 days ago. He states that 2 days ago he had a hard sneeze and felt a sharp pain in his left ribs. He states he has discomfort with coughing, sneezing, taking deep breath. Patient was evaluated in the emergency department on 06/02/2021 for an asthma exacerbation and had x-ray at that time with no acute process. He reports he went to get tested for COVID-19 and it was negative. He denies any fever, vomiting, diarrhea, shortness of breath, hemoptysis, chest pain. Allergy to penicillin. Past medical history of hyper tension and asthma. He reports he quit smoking 1 year ago. on exam: ttp to the left anterolateral ribs, no crepitus, no deformity, breath sounds are clear bilaterally, no w/r/r. labs with mildly elevated d-dimer. ribs xr with chest: LUNGS: No acute findings. No pneumothorax. CTA chest: 1. No CT evidence for pulmonary embolism. 2. Negative for pneumonia. 3. Suspect small left basilar effusion with associated atelectasis. Discussed all findings with patient. Patient given prescription for medication. Advised patient please take medication as prescribed. Follow-up with your primary care doctor. Follow-up with a hand fur cleaner. Return to emergency room for any new or worsening symptoms. Critical care attestation.: If time is entered above; I have spent that time in minutes in the direct care of this critically ill patient, excluding procedure time. ED Disposition Clinical Impression: Rib pain on left side, Pleural effusion Disposition: HOME / SELF CARE / HOMELESS Is pt being admited?: No Does the pt Need Aspirin: No Condition: Stable Instructions: Nonspecific Chest Pain, Adult, Pleural Effusion Additional Instructions: please take medication as prescribed. Follow-up with your primary care doctor. Follow-up with a hand fur cleaner. Return to emergency room for any new or worsening symptoms. Prescriptions: Naproxen 375 mg PO BID PRN #20 tab PRN Reason: pain traMADoL [Ultram 50 MG tab] 50 mg PO Q6HR PRN #12 tablet PRN Reason: Pain , Severe (7-10) Referrals: LORIN ROSS MD [Staff Physician] - 3-5 Days [facility] [Provider Group] - 3-5 Days ASHLEY MACHADO MD [Staff Physician] - 3-5 Days Time of Disposition: 16:48 Print Language: J[place]
[2021-06-08 14:30] LABS: Basophils # (Auto) 0.1 K/mm3 (0.0-0.1); Basophils % (Auto) 1.4 % (0.0-1.8); Eosinophils # (Auto) 0.3 K/mm3 (0.0-0.4); Eosinophils % (Auto) 4.5 % (0.0-4.3); Hematocrit 40.5 % (35.5-45.6); Hemoglobin 13.8 gm/dl (11.8-15.2); Lymphocytes # (Auto) 0.8 K/mm3 (1.2-5.4); Lymphocytes % (Auto) 12.9 % (13.4-35.0); Mean Corpuscular HGB Conc 34 % (32-34); Mean Corpuscular Volume 91 fl (84-94); Monocytes # (Auto) 0.9 K/mm3 (0.0-0.8); Monocytes % (Auto) 13.7 % (0.0-7.3); Platelet Count 240 K/mm3 (140-440); Red Blood Count 4.44 M/mm3 (3.65-5.03); Red Cell Distribution Width 14.3 % (13.2-15.2)
[2021-06-08 15:16] LABS: Alanine Aminotransferase 58 units/L (7-56); Albumin 3.9 g/dL (3.9-5); BUN/Creatinine Ratio 12; Blood Urea Nitrogen 11 mg/dL (9-20); Calcium 8.7 mg/dL (8.4-10.2); Hemolysis Index 10
--- NOTE | 2021-06-08 16:36 | Cat Scan Report ---
CTA CHEST WITH CONTRAST INDICATION / CLINICAL INFORMATION: left rib pain, SOB, pleuritic pain, d-dimer +. TECHNIQUE: Axial CT images were obtained through the chest after injection of Omnipaque 350, 100 cc I V contrast. 3 plane MIP and/or 3D reconstructions were produced. All CT scans at this location are pe rformed using CT dose reduction for ALARA by means of automated exposure control. COMPARISON: None available. FINDINGS: PULMONARY ARTERIES: No pulmonary emboli. THORACIC AORTA: No significant abnormality. HEART: No significant abnormality. CORONARY ARTERY CALCIFICATION: None. MEDIASTINUM / ELIO: No significant abnormality. PLEURA: Small left basilar effusion. No pneumothorax. LUNGS: Left basilar atelectasis. No significant infiltrate. ADDITIONAL FINDINGS: None. UPPER ABDOMEN: No acute findings. SKELETAL STRUCTURES: No significant osseous abnormality. IMPRESSION: 1. No CT evidence for pulmonary embolism. 2. Negative for pneumonia. 3. Suspect small left basilar effusion with associated atelectasis. Signer Name: Nilo Lainez MD Signed: 06/08/2021 4:32 PM Workstation Name: [id number]
[2021-06-08 17:57] VITALS: BP 164/104
== END 2021-06-08 17:00 | disposition home or self-care (01) ==
LOC: ED 10:07
DX: R07.81 Pleurodynia (principal); J90 Pleural effusion, not elsewhere classified; Z88.0 Allergy status to penicillin; I10 Essential (primary) hypertension; J45.909 Unspecified asthma, uncomplicated; Z87.891 Personal history of nicotine dependence
CPT/HCPCS: 36415; 71101; 71275; 80053; 85025; 85379; 99284; Q9967

== ENCOUNTER 2021-08-31 13:26 | Emergency (ER) | payer OTHER ==
[2021-08-31 15:43] VITALS: BP 169/119
--- NOTE | 2021-08-31 18:51 | XRay Report ---
Chest with left RIBS 4 views HISTORY: Left rib pain. COMPARISON: 06/08/2021. FINDINGS: Heart size is normal. The lungs are clear. Old 8th left rib fracture laterally. Signer Name: Nilo Lainez MD Signed: 08/31/2021 6:47 PM Workstation Name: [id number]
--- NOTE | 2021-08-31 19:01 | Emergency Department Report ---
ED General Adult HPI - General Chief complaint: Abdominal Pain Stated complaint: SHARP PAIN RIB Time Seen by Provider: 08/31/21 17:42 Source: patient Mode of arrival: Ambulatory Limitations: No Limitations - History of Present Illness Initial comments: Patient is a 40-year-old male presents emergency room complaints of left-sided rib pain that began 3 weeks ago. Patient states that he had a hard sneeze and then felt a popping sensation in his left rib and has had pain since then. He denies any fall. He denies any shortness of breath, pleuritic pain, hemoptysis, fever, chills, nausea, vomiting, diarrhea, productive cough, leg swelling, calf pain. He states that he does have a dry cough. Past medical history of asthma, bronchitis, open heart surgery as a child, hypertension. Allergy to penicillin. He states that he only takes hydrochlorothiazide for his blood pressure 12.5 mg, he has not followed up with his primary care doctor regarding elevated blood pressure. - Related Data Previous Rx's Medication Instructions Recorded Last Taken Type ALBUTEROL NEB's [Proventil 0.083% 2.5 mg IH QID PRN #30 neb 06/02/21 Unknown Rx NEBS] Albuterol Mdi (or & Nicu Only) 2 puff IH QID PRN #8.5 gram 06/02/21 Unknown Rx [ProAir HFA Inhaler] Promethazine /Codeine 5 - 10 ml PO Q6H PRN #120 ml 06/02/21 Unknown Rx [Phenergan/Codeine 6.25-10 mg/5 ml] predniSONE [Deltasone] 50 mg PO QDAY #5 tab 06/02/21 Unknown Rx Naproxen 375 mg PO BID PRN #20 tab 06/08/21 Unknown Rx traMADoL [Ultram 50 MG tab] 50 mg PO Q6HR PRN #12 tablet 06/08/21 Unknown Rx Diclofenac EC [Voltaren] 25 mg PO TID PRN #21 tab 08/31/21 Unknown Rx Lisinopril [Zestril TAB] 2.5 mg PO QDAY #30 tab 08/31/21 Unknown Rx methOCARBAMOL [Robaxin TAB] 500 mg PO BID PRN #14 tab 08/31/21 Unknown Rx Allergies Allergy/AdvReac Type Severity Reaction Status Date / Time Penicillins Allergy Unknown Verified 03/17/21 11:21 ED Review of Systems ROS: Stated complaint: SHARP PAIN RIB Other details as noted in HPI Comment: All other systems reviewed and negative ED Past Medical Hx - Past Medical History Hx Hypertension: Yes Hx Asthma: Yes Additional medical history: Bronchitis and sinusitis - Surgical History Hx Open Heart Surgery: Yes (age 10 months) - Social History Smoking Status: Former Smoker - Medications Home Medications: Home Medications Medication Instructions Recorded Confirmed Last Taken Type ALBUTEROL NEB's [Proventil 0.083% 2.5 mg IH QID PRN #30 neb 06/02/21 Unknown Rx NEBS] Albuterol Mdi (or & Nicu Only) 2 puff IH QID PRN #8.5 gram 06/02/21 Unknown Rx [ProAir HFA Inhaler] Promethazine /Codeine 5 - 10 ml PO Q6H PRN #120 ml 06/02/21 Unknown Rx [Phenergan/Codeine 6.25-10 mg/5 ml] predniSONE [Deltasone] 50 mg PO QDAY #5 tab 06/02/21 Unknown Rx Naproxen 375 mg PO BID PRN #20 tab 06/08/21 Unknown Rx traMADoL [Ultram 50 MG tab] 50 mg PO Q6HR PRN #12 tablet 06/08/21 Unknown Rx Diclofenac EC [Voltaren] 25 mg PO TID PRN #21 tab 08/31/21 Unknown Rx Lisinopril [Zestril TAB] 2.5 mg PO QDAY #30 tab 08/31/21 Unknown Rx methOCARBAMOL [Robaxin TAB] 500 mg PO BID PRN #14 tab 08/31/21 Unknown Rx ED Physical Exam - General Limitations: No Limitations General appearance: alert, in no apparent distress - Head Head exam: Present: atraumatic, normocephalic - Eye Eye exam: Present: normal appearance - ENT ENT exam: Present: mucous membranes moist - Respiratory Respiratory exam: Present: normal lung sounds bilaterally, chest wall tenderness (left lateral rib ttp, no crepitus, no deformity, no ecchymosis). Absent: respiratory distress, wheezes, rales, rhonchi, stridor, accessory muscle use, decreased breath sounds, prolonged expiratory - Cardiovascular Cardiovascular Exam: Present: regular rate, normal rhythm, normal heart sounds. Absent: systolic murmur, diastolic murmur, rubs, gallop - Neurological Exam Neurological exam: Present: alert, oriented X3 - Psychiatric Psychiatric exam: Present: normal affect, normal mood - Skin Skin exam: Present: warm, dry, intact ED Course Vital Signs 08/31/21 15:42 Temperature 98.0 F Pulse Rate 93 H Respiratory 18 Rate Blood Pressure 169/119 O2 Sat by Pulse 95 Oximetry ED Medical Decision Making - Radiology Data Radiology results: report reviewed Ordering Physician: FRANSSICA CRAWFORD Date of Service: 08/31/21 Procedure(s): XR ribs UNI w PA chest 3+V LT Accession Number(s): [id number] cc: FRANSISCA CRAWFORD Fluoro Time In Minutes: Chest with left RIBS 4 views HISTORY: Left rib pain. COMPARISON: 06/08/2021. FINDINGS: Heart size is normal. The lungs are clear. Old 8th left rib fracture laterally. Signer Name: Nilo Lainez MD Signed: 08/31/2021 6:47 PM Workstation Name: [id number] Transcribed By: ES Dictated By: Nilo Lainez MD Electronically Authenticated By: Nilo Lainez MD Signed Date/Time: 08/31/211846 DD/ 44 TD/TT: - Medical Decision Making Patient is a 40-year-old male presents emergency room complaints of left-sided rib pain that began 3 weeks ago. Patient states that he had a hard sneeze and then felt a popping sensation in his left rib and has had pain since then. He denies any fall. He denies any shortness of breath, pleuritic pain, hemoptysis, fever, chills, nausea, vomiting, diarrhea, productive cough, leg swelling, calf pain. He states that he does have a dry cough. Past medical history of asthma, bronchitis, open heart surgery as a child, hypertension. Allergy to penicillin. He states that he only takes hydrochlorothiazide for his blood pressure 12.5 mg, he has not followed up with his primary care doctor regarding elevated blood pressure. Vitals with elevated blood pressure, otherwise stable, upon chart review it is. Patient's blood pressures been elevated in the past, will add on low-dose lisinopril and discussed the importance of primary care follow-up and lifestyle modifications and keeping a blood pressure log. On exam:left lateral rib ttp, no crepitus, no deformity, no ecchymosis. Patient has no tachycardia, no hypoxia, patient had CT angio chest with no evidence of PE a few months ago. X-ray ribs with chest shows FINDINGS: Heart size is normal. The lungs are clear. Old 8th left rib fracture laterally. Discussed all findings with patient. Discussed the importance of outpatient follow-up. Advised patient Please take medication as prescribed. Eat a low-sodium diet. Incorporate 30-60 minutes of daily exercise. Follow-up with your primary care doctor. Please keep a blood pressure log and take this to the primary care doctor. Return to emergency room for any new or worsening symptoms. Critical care attestation.: If time is entered above; I have spent that time in minutes in the direct care of this critically ill patient, excluding procedure time. ED Disposition Clinical Impression: Rib pain on left side, Elevated blood pressure reading Disposition: HOME / SELF CARE / HOMELESS Is pt being admited?: No Does the pt Need Aspirin: No Condition: Stable Instructions: Managing Your Hypertension, Chest Wall Pain Additional Instructions: Please take medication as prescribed. Eat a low-sodium diet. Incorporate 30-60 minutes of daily exercise. Follow-up with your primary care doctor. Please keep a blood pressure log and take this to the primary care doctor. Return to emergency room for any new or worsening symptoms. Prescriptions: methOCARBAMOL [Robaxin TAB] 500 mg PO BID PRN #14 tab PRN Reason: muscle spasm/pain Diclofenac EC [Voltaren] 25 mg PO TID PRN #21 tab PRN Reason: pain Lisinopril [Zestril TAB] 2.5 mg PO QDAY #30 tab Referrals: LORIN ROSS MD [Primary Care Provider] - 3-5 Days [facility] [Provider Group] - 3-5 Days Time of Disposition: 19:01 Print Language: MONTSERRATIAN
== END 2021-08-31 19:33 | disposition home or self-care (01) ==
LOC: ED 13:26
DX: R07.81 Pleurodynia (principal); I10 Essential (primary) hypertension; J45.909 Unspecified asthma, uncomplicated; Z79.899 Other long term (current) drug therapy; Z98.890 Other specified postprocedural states; Z88.0 Allergy status to penicillin; Z87.891 Personal history of nicotine dependence
CPT/HCPCS: 99283

== ENCOUNTER 2021-10-01 09:20 | Emergency (ER) | payer OTHER ==
[2021-10-01] MEDS ORDERED: HYDROcodone/ACETAMINOPHEN 10-325MG TAB PO ONE (15:04)
--- NOTE | 2021-10-01 15:08 | Emergency Department Report ---
ED ENT HPI - General Chief complaint: Dental/Oral Stated complaint: TOOTH ABCESS Source: patient Mode of arrival: Ambulatory Limitations: No Limitations - History of Present Illness Initial comments: 41-year-old male presents to the ED complaining dental pain. Patient states that he has been having problems with his wisdom to x1 year. He states that he did not have dental insurance to have the tooth removed. Patient states for the last 3 days that the pain has increased. Patient states states that he has an increase in a headache and right earache, and a headache. Patient states pain is currently 10 out of 10. Patient denies any difficult swallowing, fever chills or nausea or vomiting. Patient is alert and oriented. No acute distress noted no ill appearance noted. MD complaint: ear pain Onset/Timin -: days(s) Severity scale (0 -10): 10 Quality: aching Consistency: constant Improves with: none Worsens with: none Context- Dental: history of dental caries - Related Data Previous Rx's Medication Instructions Recorded Last Taken Type ALBUTEROL NEB's [Proventil 0.083% 2.5 mg IH QID PRN #30 neb 06/02/21 Unknown Rx NEBS] Albuterol Mdi (or & Nicu Only) 2 puff IH QID PRN #8.5 gram 06/02/21 Unknown Rx [ProAir HFA Inhaler] Promethazine /Codeine 5 - 10 ml PO Q6H PRN #120 ml 06/02/21 Unknown Rx [Phenergan/Codeine 6.25-10 mg/5 ml] predniSONE [Deltasone] 50 mg PO QDAY #5 tab 06/02/21 Unknown Rx Naproxen 375 mg PO BID PRN #20 tab 06/08/21 Unknown Rx traMADoL [Ultram 50 MG tab] 50 mg PO Q6HR PRN #12 tablet 06/08/21 Unknown Rx Diclofenac EC [Voltaren] 25 mg PO TID PRN #21 tab 08/31/21 Unknown Rx Lisinopril [Zestril TAB] 2.5 mg PO QDAY #30 tab 08/31/21 Unknown Rx methOCARBAMOL [Robaxin TAB] 500 mg PO BID PRN #14 tab 08/31/21 Unknown Rx Acetaminophen/Codeine [Tylenol 1 tab PO Q6H PRN 15 Days #30 tab 10/01/21 Unknown Rx /Codeine # 3 tab] Clindamycin [Clindamycin CAP] 600 mg PO BID 10 Days #20 capsule 10/01/21 Unknown Rx Allergies Allergy/AdvReac Type Severity Reaction Status Date / Time Penicillins Allergy Unknown Verified 03/17/21 11:21 ED Dental HPI - General Chief complaint: Dental/Oral Stated complaint: TOOTH ABCESS Source: patient Mode of arrival: Ambulatory Limitations: No Limitations - Related Data Previous Rx's Medication Instructions Recorded Last Taken Type ALBUTEROL NEB's [Proventil 0.083% 2.5 mg IH QID PRN #30 neb 06/02/21 Unknown Rx NEBS] Albuterol Mdi (or & Nicu Only) 2 puff IH QID PRN #8.5 gram 06/02/21 Unknown Rx [ProAir HFA Inhaler] Promethazine /Codeine 5 - 10 ml PO Q6H PRN #120 ml 06/02/21 Unknown Rx [Phenergan/Codeine 6.25-10 mg/5 ml] predniSONE [Deltasone] 50 mg PO QDAY #5 tab 06/02/21 Unknown Rx Naproxen 375 mg PO BID PRN #20 tab 06/08/21 Unknown Rx traMADoL [Ultram 50 MG tab] 50 mg PO Q6HR PRN #12 tablet 06/08/21 Unknown Rx Diclofenac EC [Voltaren] 25 mg PO TID PRN #21 tab 08/31/21 Unknown Rx Lisinopril [Zestril TAB] 2.5 mg PO QDAY #30 tab 08/31/21 Unknown Rx methOCARBAMOL [Robaxin TAB] 500 mg PO BID PRN #14 tab 08/31/21 Unknown Rx Acetaminophen/Codeine [Tylenol 1 tab PO Q6H PRN 15 Days #30 tab 10/01/21 Unknown Rx /Codeine # 3 tab] Clindamycin [Clindamycin CAP] 600 mg PO BID 10 Days #20 capsule 10/01/21 Unknown Rx Allergies Allergy/AdvReac Type Severity Reaction Status Date / Time Penicillins Allergy Unknown Verified 03/17/21 11:21 ED Review of Systems ROS: Stated complaint: TOOTH ABCESS Other details as noted in HPI Constitutional: denies: chills, fever Eyes: denies: eye pain, eye discharge, vision change ENT: dental pain. denies: ear pain, throat pain Respiratory: denies: cough, shortness of breath, wheezing Cardiovascular: denies: chest pain, palpitations Endocrine: no symptoms reported Gastrointestinal: denies: abdominal pain, nausea, diarrhea Genitourinary: denies: urgency, dysuria Musculoskeletal: denies: back pain, joint swelling, arthralgia Skin: denies: rash, lesions Neurological: denies: headache, weakness, paresthesias Psychiatric: denies: anxiety, depression Hematological/Lymphatic: denies: easy bleeding, easy bruising ED Past Medical Hx - Past Medical History Hx Hypertension: Yes Hx Asthma: Yes Additional medical history: Bronchitis and sinusitis - Surgical History Hx Open Heart Surgery: Yes (age 10 months) - Social History Smoking Status: Former Smoker - Medications Home Medications: Home Medications Medication Instructions Recorded Confirmed Last Taken Type ALBUTEROL NEB's [Proventil 0.083% 2.5 mg IH QID PRN #30 neb 06/02/21 Unknown Rx NEBS] Albuterol Mdi (or & Nicu Only) 2 puff IH QID PRN #8.5 gram 06/02/21 Unknown Rx [ProAir HFA Inhaler] Promethazine /Codeine 5 - 10 ml PO Q6H PRN #120 ml 06/02/21 Unknown Rx [Phenergan/Codeine 6.25-10 mg/5 ml] predniSONE [Deltasone] 50 mg PO QDAY #5 tab 06/02/21 Unknown Rx Naproxen 375 mg PO BID PRN #20 tab 06/08/21 Unknown Rx traMADoL [Ultram 50 MG tab] 50 mg PO Q6HR PRN #12 tablet 06/08/21 Unknown Rx Diclofenac EC [Voltaren] 25 mg PO TID PRN #21 tab 08/31/21 Unknown Rx Lisinopril [Zestril TAB] 2.5 mg PO QDAY #30 tab 08/31/21 Unknown Rx methOCARBAMOL [Robaxin TAB] 500 mg PO BID PRN #14 tab 08/31/21 Unknown Rx Acetaminophen/Codeine [Tylenol 1 tab PO Q6H PRN 15 Days #30 tab 10/01/21 Unknown Rx /Codeine # 3 tab] Clindamycin [Clindamycin CAP] 600 mg PO BID 10 Days #20 capsule 10/01/21 Unknown Rx ED Physical Exam - General Limitations: No Limitations General appearance: alert, in no apparent distress - Head Head exam: Present: atraumatic, normocephalic - Eye Eye exam: Present: normal appearance - ENT ENT exam: Present: mucous membranes moist - Neck Neck exam: Present: normal inspection - Respiratory Respiratory exam: Present: normal lung sounds bilaterally. Absent: respiratory distress - Cardiovascular Cardiovascular Exam: Present: regular rate, normal rhythm. Absent: systolic murmur, diastolic murmur, rubs, gallop - GI/Abdominal GI/Abdominal exam: Present: soft, normal bowel sounds - Rectal Rectal exam: Present: deferred - Extremities Exam Extremities exam: Present: normal inspection - Back Exam Back exam: Present: normal inspection - Neurological Exam Neurological exam: Present: alert, oriented X3 - Psychiatric Psychiatric exam: Present: normal affect, normal mood - Skin Skin exam: Present: warm, dry, intact, normal color. Absent: rash ED Course Vital Signs 10/01/21 09:49 Temperature 98.7 F Pulse Rate 92 H Respiratory 18 Rate Blood Pressure 163/112 [Right] O2 Sat by Pulse 99 Oximetry ED Medical Decision Making - Medical Decision Making 41-year-old male presents to the ED complaining dental pain. Patient states that he has been having problems with his wisdom to x1 year. He states that he did not have dental insurance to have the tooth removed. Patient states for the last 3 days that the pain has increased. Patient states states that he has an increase in a headache and right earache, and a headache. Patient states pain is currently 10 out of 10. Patient denies any difficult swallowing, fever chills or nausea or vomiting. Patient is alert and oriented. No acute distress noted no ill appearance noted. Physical examination patient has was him to irruption noted to the right side with impaction noted. Uvula is midline. No trismus noted. Rechecked the patient is resting quietly quietly and comfortable and feeling better. I discussed the results of diagnostic study, my clinical impression and the plan for further treatment with the patient. Patient agrees with plan and discharge at this present time. All question addressed. I have given the patient instruction regarding a diagnosis ,expectation ,follow- up and return precaution. I explained to the patient that emergent condition may arise and to return to the ED for new worsen and any new persisting condition. I have explained the importance of following up with the primary care physician or referral physician listed below has instructed. The patient verbalized understanding of discharge instruction. Critical care attestation.: If time is entered above; I have spent that time in minutes in the direct care of this critically ill patient, excluding procedure time. ED Disposition Clinical Impression: Dental abscess, Hypertension Disposition: 01 HOME / SELF CARE / HOMELESS Is pt being admited?: No Does the pt Need Aspirin: No Condition: Stable Instructions: Dental Abscess, [id number], Hypertension (ED), Managing Your Hypertension Additional Instructions: Take medication as prescribed Return to the ED for any worsening symptom Follow-up with oral surgeon to have wisdom tooth removed Prescriptions: Clindamycin [Clindamycin CAP] 600 mg PO BID 10 Days #20 capsule Acetaminophen/Codeine [Tylenol /Codeine # 3 tab] 1 tab PO Q6H PRN 15 Days #30 tab PRN Reason: Pain, Moderate (4-6) Referrals: LORIN ROSS MD [Staff Physician] - 3-5 Days [facility] [Outside] - 3-5 Days Forms: Work/School Release Form(ED) Time of Disposition: 15:18
[2021-10-01 16:10] VITALS: BP 129/86
== END 2021-10-01 16:08 | disposition home or self-care (01) ==
LOC: ED 09:20
DX: K04.7 Periapical abscess without sinus (principal); I10 Essential (primary) hypertension; J45.909 Unspecified asthma, uncomplicated; Z98.890 Other specified postprocedural states; Z79.899 Other long term (current) drug therapy; Z88.0 Allergy status to penicillin; Z87.891 Personal history of nicotine dependence
CPT/HCPCS: 99282

== ENCOUNTER 2022-02-23 14:08 | Inpatient (IN) | payer SELFPAY ==
[2022-02-23] MEDS ORDERED: ALBUTEROL 2.5 MG/3 ML NEBU IH ONE ×2 (15:25→19:12)
[2022-02-23] MEDS ORDERED: predniSONE 20 MG TAB PO ONE (15:25)
--- NOTE | 2022-02-23 15:30 | Emergency Department Report ---
ED Shortness of Breath HPI - General Chief Complaint: Dyspnea/Respdistress Stated Complaint: MIKE Time Seen by Provider: 02/23/22 15:22 Source: patient, EMS Mode of arrival: Stretcher Limitations: No Limitations - History of Present Illness Initial Comments: 41-year-old white male with a remote history of asthma as a child, complaining of increased shortness of breath for 2 days. Reports his symptoms were acute in onset. Admits to coughing this is cough with nonproductive patient denies having any fever chills or chest pain. MD Complaint: shortness of breath, cough -: Gradual, days(s) Consistency: intermittent Improves With: oxygen Worsens With: lying flat Context: recent URI Associated Symptoms: denies other symptoms - Related Data Previous Rx's Medication Instructions Recorded Last Taken Type ALBUTEROL NEB's [Proventil 0.083% 2.5 mg IH QID PRN #30 neb 06/02/21 Unknown Rx NEBS] Albuterol Mdi (or & Nicu Only) 2 puff IH QID PRN #8.5 gram 06/02/21 Unknown Rx [ProAir HFA Inhaler] Promethazine /Codeine 5 - 10 ml PO Q6H PRN #120 ml 06/02/21 Unknown Rx [Phenergan/Codeine 6.25-10 mg/5 ml] predniSONE [Deltasone] 50 mg PO QDAY #5 tab 06/02/21 Unknown Rx Naproxen 375 mg PO BID PRN #20 tab 06/08/21 Unknown Rx traMADoL [Ultram 50 MG tab] 50 mg PO Q6HR PRN #12 tablet 06/08/21 Unknown Rx Diclofenac EC [Voltaren] 25 mg PO TID PRN #21 tab 08/31/21 Unknown Rx Lisinopril [Zestril TAB] 2.5 mg PO QDAY #30 tab 08/31/21 Unknown Rx methOCARBAMOL [Robaxin TAB] 500 mg PO BID PRN #14 tab 08/31/21 Unknown Rx Acetaminophen/Codeine [Tylenol 1 tab PO Q6H PRN 15 Days #30 tab 10/01/21 Unknown Rx /Codeine # 3 tab] Clindamycin [Clindamycin CAP] 600 mg PO BID 10 Days #20 capsule 10/01/21 Unknown Rx Allergies Allergy/AdvReac Type Severity Reaction Status Date / Time Penicillins Allergy Unknown Verified 03/17/21 11:21 ED Review of Systems ROS: Stated complaint: MIKE Other details as noted in HPI Constitutional: denies: chills, fever Eyes: denies: eye pain, eye discharge, vision change ENT: denies: ear pain, throat pain Respiratory: cough, orthopnea, shortness of breath, wheezing Cardiovascular: dyspnea on exertion, orthopnea. denies: chest pain, palpitations Endocrine: no symptoms reported Gastrointestinal: denies: abdominal pain, nausea, diarrhea Genitourinary: denies: urgency, dysuria Musculoskeletal: denies: back pain, joint swelling, arthralgia Skin: denies: rash, lesions Neurological: denies: headache, weakness, paresthesias Psychiatric: denies: anxiety, depression Hematological/Lymphatic: denies: easy bleeding, easy bruising ED Past Medical Hx - Past Medical History Hx Hypertension: Yes Hx Asthma: Yes Additional medical history: Bronchitis and sinusitis - Surgical History Hx Open Heart Surgery: Yes (age 10 months) - Social History Smoking Status: Former Smoker - Medications Home Medications: Home Medications Medication Instructions Recorded Confirmed Last Taken Type ALBUTEROL NEB's [Proventil 0.083% 2.5 mg IH QID PRN #30 neb 06/02/21 Unknown Rx NEBS] Albuterol Mdi (or & Nicu Only) 2 puff IH QID PRN #8.5 gram 06/02/21 Unknown Rx [ProAir HFA Inhaler] Promethazine /Codeine 5 - 10 ml PO Q6H PRN #120 ml 06/02/21 Unknown Rx [Phenergan/Codeine 6.25-10 mg/5 ml] predniSONE [Deltasone] 50 mg PO QDAY #5 tab 06/02/21 Unknown Rx Naproxen 375 mg PO BID PRN #20 tab 06/08/21 Unknown Rx traMADoL [Ultram 50 MG tab] 50 mg PO Q6HR PRN #12 tablet 06/08/21 Unknown Rx Diclofenac EC [Voltaren] 25 mg PO TID PRN #21 tab 08/31/21 Unknown Rx Lisinopril [Zestril TAB] 2.5 mg PO QDAY #30 tab 08/31/21 Unknown Rx methOCARBAMOL [Robaxin TAB] 500 mg PO BID PRN #14 tab 08/31/21 Unknown Rx Acetaminophen/Codeine [Tylenol 1 tab PO Q6H PRN 15 Days #30 tab 10/01/21 Unknown Rx /Codeine # 3 tab] Clindamycin [Clindamycin CAP] 600 mg PO BID 10 Days #20 capsule 10/01/21 Unknown Rx ED Physical Exam - General Limitations: No Limitations General appearance: alert, in no apparent distress - Head Head exam: Present: atraumatic, normocephalic - Eye Eye exam: Present: normal appearance, PERRL, EOMI - ENT ENT exam: Present: mucous membranes moist - Neck Neck exam: Present: normal inspection - Respiratory Respiratory exam: Present: normal lung sounds bilaterally, respiratory distress, wheezes. Absent: accessory muscle use - Cardiovascular Cardiovascular Exam: Present: regular rate, normal rhythm. Absent: systolic murmur, diastolic murmur, rubs, gallop - GI/Abdominal GI/Abdominal exam: Present: soft, normal bowel sounds - Rectal Rectal exam: Present: deferred - Extremities Exam Extremities exam: Present: normal inspection - Back Exam Back exam: Present: normal inspection - Neurological Exam Neurological exam: Present: alert, oriented X3 - Psychiatric Psychiatric exam: Present: normal affect, normal mood - Skin Skin exam: Present: warm, dry, intact, normal color. Absent: rash ED Course Vital Signs 02/23/22 14:34 Temperature 98.2 F Pulse Rate 100 H Respiratory 18 Rate Blood Pressure 164/91 [Left] ED Medical Decision Making - Lab Data Result diagrams: 02/23/22 18:46 02/23/22 18:46 Critical care attestation.: If time is entered above; I have spent that time in minutes in the direct care of this critically ill patient, excluding procedure time. ED Disposition Clinical Impression: Asthma with COPD with exacerbation Disposition: ADMITTED INPATIENT Is pt being admited?: Yes Does the pt Need Aspirin: No Condition: Serious
--- NOTE | 2022-02-23 18:27 | XRay Report ---
CHEST 1 VIEW 02/23/2022 5:18 PM INDICATION / CLINICAL INFORMATION: sob. COMPARISON: 08/31/21. FINDINGS: SUPPORT DEVICES: None. HEART / MEDIASTINUM: No significant abnormality. LUNGS / PLEURA: No significant pulmonary or pleural abnormality. No pneumothorax. ADDITIONAL FINDINGS: No significant additional findings. IMPRESSION: 1. No acute findings. Signer Name: Asif Yousif MD Signed: 02/23/2022 6:23 PM Workstation Name: [id number]
[2022-02-23 19:04] LABS: Basophils # (Auto) 0.1 K/mm3 (0.0-0.1); Basophils % (Auto) 0.4 % (0.0-1.8); Hematocrit 44.6 % (35.5-45.6); Hemoglobin 14.9 gm/dl (11.8-15.2); Lymphocytes # (Auto) 0.5 K/mm3 (1.2-5.4); Mean Corpuscular HGB Conc 33 % (32-34); Mean Corpuscular Volume 98 fl (84-94); Monocytes # (Auto) 1.3 K/mm3 (0.0-0.8); Monocytes % (Auto) 8.3 % (0.0-7.3); Platelet Count 337 K/mm3 (140-440); Red Blood Count 4.56 M/mm3 (3.65-5.03); Red Cell Distribution Width 14.2 % (13.2-15.2)
[2022-02-23 19:20] LABS: Alanine Aminotransferase 35 units/L (7-56); Albumin 4.3 g/dL (3.9-5); BUN/Creatinine Ratio 11; Blood Urea Nitrogen 10 mg/dL (9-20); Calcium 9.3 mg/dL (8.4-10.2); Hemolysis Index 3
[2022-02-23] MEDS ORDERED: methylPREDNISolone Sod Suc 60 MG in SODIUM CHLORIDE 0.9% 100 ML IV ONE (19:34)
[2022-02-23] MEDS ORDERED: AZITHROMYCIN/NS 500 MG/250 ML 500 MG/250 ML BAG IV ONE (19:35)
--- NOTE | 2022-02-23 19:55 | History and Physical Report ---
History of Present Illness Chief complaint: I cannot breathe History of present illness: 41 YO Male with Obesity, HTN presents ED for evaluation. Patient reports "I cannot breathe". Patient dates he has experienced shortness of breath over the past 2 days with persistent and worsening symptoms over the same timeframe. Patient knowledges increased productive cough with clear sputum. Patient knowledges increased use of nebulizer therapy without relief. As result patient failed outpatient therapy. EMS was notified and upon arrival the patient was found to be in distress and using accessory muscles to breathe. Patient subsequent transported to [facility] for further care and evaluation of the aforementioned symptoms. The patient was seen and evaluated emergency department. All lab and imaging studies reviewed. Patient found to have a pulse oximetry of 81% on room air which is consistent with acute hypoxemic respiratory failure suspected secondary to status asthmaticus, and systemic inflammatory response syndrome. Patient admitted to medical floor and treated in accordance with asthma exacerbation protocol. Patient treated with IV steroid therapy with mild improvement in symptoms. Patient is tripoding, using accessory muscles to breathe, unable to speak in complete sentences, retracting. Arterial blood gas ordered and pending at time of admission. No reports of fever, chills, chest pain, palpitation, skin rash and recent contact, known exposure to COVID-19. Prior admission on 03/17/2021 reviewed. All medication listed at time of admission has been reconciled. Advanced care planning cond ucted in ED. Past History Past Medical History: hypertension, other (See HPI) Past Surgical History: No surgical history, Other (Reviewed) Social history: single. denies: smoking, alcohol abuse, prescription drug abuse Family history: hypertension Medications and Allergies Allergies Allergy/AdvReac Type Severity Reaction Status Date / Time Penicillins Allergy Unknown Verified 03/17/21 11:21 Home Medications Medication Instructions Recorded Confirmed Last Taken Type ALBUTEROL NEB's [Proventil 0.083% 2.5 mg IH QID PRN #30 neb 06/02/21 Unknown Rx NEBS] Albuterol Mdi (or & Nicu Only) 2 puff IH QID PRN #8.5 gram 06/02/21 Unknown Rx [ProAir HFA Inhaler] Promethazine /Codeine 5 - 10 ml PO Q6H PRN #120 ml 06/02/21 Unknown Rx [Phenergan/Codeine 6.25-10 mg/5 ml] predniSONE [Deltasone] 50 mg PO QDAY #5 tab 06/02/21 Unknown Rx Naproxen 375 mg PO BID PRN #20 tab 06/08/21 Unknown Rx traMADoL [Ultram 50 MG tab] 50 mg PO Q6HR PRN #12 tablet 06/08/21 Unknown Rx Diclofenac EC [Voltaren] 25 mg PO TID PRN #21 tab 08/31/21 Unknown Rx Lisinopril [Zestril TAB] 2.5 mg PO QDAY #30 tab 08/31/21 Unknown Rx methOCARBAMOL [Robaxin TAB] 500 mg PO BID PRN #14 tab 08/31/21 Unknown Rx Acetaminophen/Codeine [Tylenol 1 tab PO Q6H PRN 15 Days #30 tab 10/01/21 Unknown Rx /Codeine # 3 tab] Clindamycin [Clindamycin CAP] 600 mg PO BID 10 Days #20 capsule 10/01/21 Unknown Rx Active Meds: Active Medications Azithromycin (Zithromax/Ns) 500 mg in 250 mls @ 250 mls/hr IV ONCE ONE; Protocol Stop: 02/23/22 20:34 Last Admin: 02/23/22 19:51 Dose: 250 mls/hr Methylprednisolone Sodium Succinate (Methylprednisolone Sod Succinate 125 Mg/2 Ml Inj) 60 mg IV ONCE JASON Stop: 02/24/22 06:00 Review of Systems Constitutional: no weight loss, no weight gain, no fever, no chills Ears, nose, mouth and throat: no ear pain, no tinnitis, no nose pain Cardiovascular: no chest pain, no palpitations Respiratory: cough, shortness of breath Gastrointestinal: no abdominal pain, no nausea, no vomiting, no constipation Genitourinary Male: no hematuria, no flank pain, no urinary frequency, no urinary hesitancy Rectal: no pain, no incontinence Musculoskeletal: no neck stiffness, no shooting arm pain, no low back pain, no redness of joints Integumentary: no rash, no pruritis, no redness, no jaundice Neurological: no head injury, no paralysis, no weakness, no numbness, no s eizures, no syncope Psychiatric: no anxiety, no change in sleep habits, no sleep disturbances, no insomnia, no suicidal ideation Endocrine: no cold intolerance, no heat intolerance, no polydipsia, no polyuria Hematologic/Lymphatic: no easy bruising, no easy bleeding Allergic/Immunologic: no urticaria Exam - Constitutional Vitals: Temp Pulse Resp BP Pulse Ox 98.2 F 100 H 18 164/91 02/23/22 14:34 02/23/22 14:34 02/23/22 14:34 02/23/22 14:34 General appearance: Present: mild distress - EENT Eyes: Present: PERRL ENT: hearing intact, clear oral mucosa - Neck Neck: Present: supple, normal ROM - Respiratory Respiratory effort: labored Respiratory: bilateral: diminished, wheezing - Cardiovascular Heart Sounds: Present: S1 & S2. Absent: rub, click - Extremities Extremities: pulses symmetrical, No edema Peripheral Pulses: within normal limits - Abdominal General gastrointestinal: Present: soft, non-tender, non-distended, normal bowel sounds Male genitourinary: Present: normal - Integumentary Integumentary: Present: clear, warm, dry - Musculoskeletal Musculoskeletal: gait normal, strength equal bilaterally - Psychiatric Psychiatric: appropriate mood/affect, intact judgment & insight - Neurologic Neurologic: CNII-XII intact, moves all extremities Results - Labs CBC & Chem 7: 02/23/22 18:46 02/23/22 18:46 Labs: Abnormal lab results 02/23/22 02/23/22 Range/Units 18:46 18:46 WBC 16.0 H (4.5-11.0) K/mm3 MCV 98 H (84-94) fl MCH 33 H (28-32) pg Lymph % (Auto) 3.0 L (13.4-35.0) % Real % (Auto) 8.3 H (0.0-7.3) % Lymph # (Auto) 0.5 L (1.2-5.4) K/mm3 Real # (Auto) 1.3 H (0.0-0.8) K/mm3 Seg Neutrophils % 88.3 H (40.0-70.0) % Seg Neutrophils # 14.1 H (1.8-7.7) K/mm3 Chloride 93.6 L (98-107) mmol/L Glucose 118 H (75-100) mg/dL Assessment and Plan - Patient Problems (1) Status asthmaticus Current Visit: Yes Status: Acute Qualifiers: Asthma severity: moderate Asthma persistence: persistent Qualified Code(s): J45.42 - Moderate persistent asthma with status asthmaticus Plan to address problem: Chest x-ray, supplemental oxygen, pulse oximetry, nebulizer therapy, IV steroid therapy, empiric IV antibiotic therapy, supportive care. (2) Acute hypoxemic respiratory failure Current Visit: Yes Status: Acute Plan to address problem: Chest x-ray, supplemental oxygen, pulse oximetry, nebulizer therapy, noninvasive positive pressure ventilation as clinically indicated. (3) SIRS (systemic inflammatory response syndrome) Current Visit: Yes Status: Acute Plan to address problem: Empiric IV antibiotic therapy, chest x-ray, CBC, supportive care. (4) Obesity (BMI 30.0-34.9) Current Visit: Yes Status: Acute Plan to address problem: Balanced diet, increase physical activity discharge, outpatient pulmonary follow-up for sleep study. (5) DVT prophylaxis Current Visit: Yes Status: Acute Plan to address problem: SCD to bilateral lower extremities while in bed (6) Advance care planning Current Visit: Yes Status: Acute Plan to address problem: Disease education done, care plan discussed, diagnoses discussed, prognosis discussed, patient is full code. +30 minutes. (7) Preventative health care Current Visit: Yes Status: Acute Plan to address problem: Patient to follow-up with primary care physician for all age and risk factor appropriate screening test, meal planning, weight reduction, +30 minutes.
[2022-02-23] MEDS ORDERED: ACETAMINOPHEN 325 MG TAB PO PRN (19:56)
[2022-02-23] MEDS ORDERED: ONDANSETRON 4 MG/2 ML INJ IV PRN (19:56)
[2022-02-23] MEDS ORDERED: MORPHINE 4 MG/1 ML INJ IV PRN (19:56)
[2022-02-23] MEDS ORDERED: DICLOFENAC EC 25 MG TAB PO PRN (19:58)
[2022-02-23] MEDS ORDERED: ACETAMINOPHEN W/CODEINE 300-30 MG TAB PO PRN (19:58)
[2022-02-23] MEDS ORDERED: methylPREDNISolone Sod Succinate 125 MG/2 ML INJ IV SCH (20:00)
[2022-02-23] MEDS: AZITHROMYCIN/NS 500 MG/250 ML 500 MG/250 ML BAG IV SCH (20:03)
[2022-02-24] MEDS: oxyCODONE /ACETAMINOPHEN 5-325MG TAB PO PRN ×2 (03:08→21:20)
[2022-02-24] MEDS: methylPREDNISolone Sod Succinate 40 MG/1 ML INJ IV SCH ×3 (03:09→21:07)
[2022-02-24 06:57] LABS: Hematocrit 42.8 % (35.5-45.6); Hemoglobin 14.3 gm/dl (11.8-15.2); Mean Corpuscular HGB Conc 33 % (32-34); Mean Corpuscular Volume 97 fl (84-94); Platelet Count 326 K/mm3 (140-440); Red Blood Count 4.39 M/mm3 (3.65-5.03); Red Cell Distribution Width 14.2 % (13.2-15.2)
[2022-02-24 07:13] LABS: BUN/Creatinine Ratio 19; Blood Urea Nitrogen 19 mg/dL (9-20); Calcium 9.3 mg/dL (8.4-10.2); Hemolysis Index 0
[2022-02-24 08:30] LABS: Total Cells Counted 100
[2022-02-24 08:31] LABS: Band Neutrophils # (Manual) 0.5 K/mm3; Basophils % (Manual) 0 % (0.0-1.8); Eosinophils % (Manual) 0 % (0.0-4.3); Large Platelets Few; Platelet Estimate Consistent w Auto; RBC Morphology Normal
[2022-02-24] MEDS: FAMOTIDINE 20 MG TAB PO SCH ×2 (09:21→21:07)
[2022-02-24] MEDS: LISINOPRIL 5 MG TAB PO SCH (09:22)
[2022-02-24] MEDS ORDERED: NON-FORMULARY EACH (Lisinopril [Zestril Tab] 2.5 MG Tablet) PO SCH (10:00)
--- NOTE | 2022-02-24 17:43 | Electrocardiograph Report ---
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
--- NOTE | 2022-02-24 18:15 | Progress Note ---
Assessment and Plan Assessment and plan: 41 YO Male with Obesity, HTN and asthma in childhood presents ED for evaluation. Patient was diagnosed COPD about 5 years ago and he never smoked tobacco products. However smoking marijuana regularly since several years and currently trying to quit. Patient reports having sudden onset cough, green sputum, wheezing and difficulty breathing since 2 days after spent couple of hours outdoors under hot sun with his daughter 2 days ago. Patient knowledges increased use of nebulizer therapy without relief. As result patient failed outpatient therapy. EMS was notified and upon arrival the patient was found to be in distress and using accessory muscles to breathe. All lab and imaging studies reviewed. Patient is tripoding, using accessory muscles to breathe, unable to speak in complete sentences, retracting. Patient found to have a pulse oximetry of 81% on room air which is consistent with acute hypoxemic respiratory failure suspected secondary to status asthmaticus, and systemic inflammatory response syndrome. Patient admitted to medical floor and treated in accordance with asthma exacerbation protocol. Patient treated with IV steroid therapy with mild improvement in symptoms. No reports of fever, chills, chest pain, palpitation, skin rash and recent contact, known exposure to COVID- 19. (1) Status asthmaticus Current Visit: Yes Status: Acute Qualifiers: Asthma severity: moderate Asthma persistence: persistent Qualified Code(s): J45.42 - Moderate persistent asthma with status asthmaticus Plan to address problem: Diagnosed with childhood asthma and COPD about 5 years ago but he never smoked tobacco products. However smokes marijuana regularly since several years and currently trying to quit. Patient reports having sudden onset cough, green sputum, wheezing and difficulty breathing since 2 days after spent couple of hours outdoors under hot sun with his daughter 2 days ago. Chest x-ray, supplemental oxygen, pulse oximetry, nebulizer therapy, IV steroid therapy, empiric IV antibiotic therapy, supportive care. Patient reports improvement of symptoms since admitted, able to converse fairly comfortably currently. (2) Acute hypoxemic respiratory failure Current Visit: Yes Status: Acute Plan to address problem: Likely from acute asthma/COPD exacerbation. Never needed home O2. Chest x-ray, supplemental oxygen, pulse oximetry, nebulizer therapy, noninvasive positive pressure ventilation as clinically indicated. (3) SIRS (systemic inflammatory response syndrome) Current Visit: Yes Status: Acute Plan to address problem: Empiric IV antibiotic therapy, chest x-ray, CBC, supportive care. (4) Obesity (BMI 30.0-34.9) Current Visit: Yes Status: Acute Plan to address problem: Balanced diet, increase physical activity discharge, outpatient pulmonary follow-up for sleep study. (5) leukocytosis WBC 16 at the time of admission. 12 today, improving. Likely reactive. Receiving empiric antibiotic therapy. Tested negative for COVID-19. (6) hypertension Continue home medication and monitor DVT prophylaxis Current Visit: Yes Status: Acute Plan to address problem: SCD to bilateral lower extremities while in bed Advance care planning Current Visit: Yes Status: Acute Plan to address problem: Disease education done, care plan discussed, diagnoses discussed, prognosis discussed, patient is full code. History Interval history: Patient reports acute onset of cough, green sputum and progressive worsening dyspnea after spending under hot sun with his daughter. Patient typically uses home nebs 3-4 times daily. Patient reports improvement of symptoms since admitted. He still coughing and bringing up to the green sputum. He is now able to conduct conversation fairly well. No significant fevers here. He had childhood asthma and related told to he has COPD. Never smoked tobacco products but has been smoking regularly marijuana since several years and is trying to quit. Hospitalist Physical - Constitutional Vitals: Temp Pulse Resp BP Pulse Ox 97.7 F 100 H 24 162/103 4 L 02/24/22 11:49 02/24/22 11:49 02/24/22 11:49 02/24/22 11:49 02/24/22 13:13 General appearance: Present: mild distress, obese - EENT Eyes: Present: PERRL, EOM intact ENT: hearing intact - Neck Neck: Present: supple. Absent: masses or JVD - Respiratory Respiratory effort: other (Mild respiratory distress but able to conversation) Respiratory: bilateral: diminished, wheezing - Cardiovascular Rhythm: regular - Extremities Extremities: No edema - Abdominal General gastrointestinal: soft, non-tender, non-distended - Integumentary Integumentary: Absent: rash - Psychiatric Psychiatric: appropriate mood/affect - Neurologic Neurologic: no focal deficits Results - Labs CBC & Chem 7: 02/24/22 05:58 02/24/22 05:58 Labs: Laboratory Last Values WBC 12.6 K/mm3 (4.5-11.0) H 02/24/22 05:58 RBC 4.39 M/mm3 (3.65-5.03) 02/24/22 05:58 Hgb 14.3 gm/dl (11.8-15.2) 02/24/22 05:58 Hct 42.8 % (35.5-45.6) 02/24/22 05:58 MCV 97 fl (84-94) H 02/24/22 05:58 MCH 33 pg (28-32) H 02/24/22 05:58 MCHC 33 % (32-34) 02/24/22 05:58 RDW 14.2 % (13.2-15.2) 02/24/22 05:58 Plt Count 326 K/mm3 (140-440) 02/24/22 05:58 Lymph % (Auto) 3.0 % (13.4-35.0) L 02/23/22 18:46 [place] % (Auto) 8.3 % (0.0-7.3) H 02/23/22 18:46 Eos % (Auto) 0.0 % (0.0-4.3) 02/23/22 18:46 Baso % (Auto) 0.4 % (0.0-1.8) 02/23/22 18:46 Lymph # (Auto) 0.5 K/mm3 (1.2-5.4) L 02/23/22 18:46 [place] # (Auto) 1.3 K/mm3 (0.0-0.8) H 02/23/22 18:46 Eos # (Auto) 0.0 K/mm3 (0.0-0.4) 02/23/22 18:46 Baso # (Auto) 0.1 K/mm3 (0.0-0.1) 02/23/22 18:46 Add Manual Diff Complete 02/24/22 05:58 Total Counted 100 02/24/22 05:58 Seg Neutrophils % Snowblower Mechanic 02/24/22 05:58 Seg Neuts % (Manual) 86.0 % (40.0-70.0) H 02/24/22 05:58 Band Neutrophils % 4.0 % 02/24/22 05:58 Lymphocytes % (Manual) 4.0 % (13.4-35.0) L 02/24/22 05:58 Reactive Lymphs % (Man) 1.0 % 02/24/22 05:58 Monocytes % (Manual) 5.0 % (0.0-7.3) 02/24/22 05:58 Eosinophils % (Manual) 0 % (0.0-4.3) 02/24/22 05:58 Basophils % (Manual) 0 % (0.0-1.8) 02/24/22 05:58 Metamyelocytes % 0 % 02/24/22 05:58 Myelocytes % 0 % 02/24/22 05:58 Promyelocytes % 0 % 02/24/22 05:58 Blast Cells % 0 % 02/24/22 05:58 Nucleated RBC % Not Reportable 02/24/22 05:58 Seg Neutrophils # 14.1 K/mm3 (1.8-7.7) H 02/23/22 18:46 Seg Neutrophils # Man 10.8 K/mm3 (1.8-7.7) H 02/24/22 05:58 Band Neutrophils # 0.5 K/mm3 02/24/22 05:58 Lymphocytes # (Manual) 0.5 K/mm3 (1.2-5.4) L 02/24/22 05:58 Abs React Lymphs (Man) 0.1 K/mm3 02/24/22 05:58 Monocytes # (Manual) 0.6 K/mm3 (0.0-0.8) 02/24/22 05:58 Eosinophils # (Manual) 0.0 K/mm3 (0.0-0.4) 02/24/22 05:58 Basophils # (Manual) 0.0 K/mm3 (0.0-0.1) 02/24/22 05:58 Metamyelocytes # 0.0 K/mm3 02/24/22 05:58 Myelocytes # 0.0 K/mm3 02/24/22 05:58 Promyelocytes # 0.0 K/mm3 02/24/22 05:58 Blast Cells # 0.0 K/mm3 02/24/22 05:58 WBC Morphology Not Reportable 02/24/22 05:58 Hypersegmented Neuts Not Reportable 02/24/22 05:58 Hyposegmented Neuts Not Reportable 02/24/22 05:58 Hypogranular Neuts Not Reportable 02/24/22 05:58 Smudge Cells Not Reportable 02/24/22 05:58 Toxic Granulation Not Reportable 02/24/22 05:58 Toxic Vacuolation Not Reportable 02/24/22 05:58 Dohle Bodies Not Reportable 02/24/22 05:58 Pelger-Huet Anomaly Not Reportable 02/24/22 05:58 Lana Rods Not Reportable 02/24/22 05:58 Platelet Estimate Consistent w auto 02/24/22 05:58 Clumped Platelets Not Reportable 02/24/22 05:58 Plt Clumps, EDTA Not Reportable 02/24/22 05:58 Large Platelets Few 02/24/22 05:58 Giant Platelets Not Reportable 02/24/22 05:58 Platelet Satelliting Not Reportable 02/24/22 05:58 Plt Morphology Comment Not Reportable 02/24/22 05:58 RBC Morphology Normal 02/24/22 05:58 Dimorphic RBCs Not Reportable 02/24/22 05:58 Polychromasia Not Reportable 02/24/22 05:58 Hypochromasia Not Reportable 02/24/22 05:58 Poikilocytosis Not Reportable 02/24/22 05:58 Anisocytosis Not Reportable 02/24/22 05:58 Microcytosis Not Reportable 02/24/22 05:58 Macrocytosis Not Reportable 02/24/22 05:58 Spherocytes Not Reportable 02/24/22 05:58 Pappenheimer Bodies Not Reportable 02/24/22 05:58 Sickle Cells Not Reportable 02/24/22 05:58 Target Cells Not Reportable 02/24/22 05:58 Tear Drop Cells Not Reportable 02/24/22 05:58 Ovalocytes Not Reportable 02/24/22 05:58 Helmet Cells Not Reportable 02/24/22 05:58 [place] Bodies Not Reportable 02/24/22 05:58 [place] Rings Not Reportable 02/24/22 05:58 Bhavya Cells Not Reportable 02/24/22 05:58 Bite Cells Not Reportable 02/24/22 05:58 Crenated Cell Not Reportable 02/24/22 05:58 Elliptocytes Not Reportable 02/24/22 05:58 Acanthocytes (Spur) Not Reportable 02/24/22 05:58 Rouleaux Not Reportable 02/24/22 05:58 Hemoglobin C Crystals Not Reportable 02/24/22 05:58 Schistocytes Not Reportable 02/24/22 05:58 Malaria parasites Not Reportable 02/24/22 05:58 Chris Bodies Not Reportable 02/24/22 05:58 Hem Pathologist Commnt No 02/24/22 05:58 Sodium 140 mmol/L (137-145) 02/24/22 05:58 Potassium 4.0 mmol/L (3.6-5.0) 02/24/22 05:58 Chloride 95.7 mmol/L (98-107) L 02/24/22 05:58 Carbon Dioxide 30 mmol/L (22-30) 02/24/22 05:58 Anion Gap 18 mmol/L 02/24/22 05:58 BUN 19 mg/dL (9-20) 02/24/22 05:58 Creatinine 1.0 mg/dL (0.8-1.3) 02/24/22 05:58 Estimated GFR > 60 ml/min 02/24/22 05:58 BUN/Creatinine Ratio 19 % 02/24/22 05:58 Glucose 145 mg/dL (75-100) H 02/24/22 05:58 Calcium 9.3 mg/dL (8.4-10.2) 02/24/22 05:58 Total Bilirubin 0.70 mg/dL (0.1-1.2) 02/23/22 18:46 AST 23 units/L (5-40) 02/23/22 18:46 ALT 35 units/L (7-56) 02/23/22 18:46 Alkaline Phosphatase 118 units/L (35-129) 02/23/22 18:46 NT-Pro-B Natriuret Pep 174.6 pg/mL (0-450) 02/23/22 18:46 Total Protein 7.4 g/dL (6.3-8.2) 02/23/22 18:46 Albumin 4.3 g/dL (3.9-5) 02/23/22 18:46 Albumin/Globulin Ratio 1.4 % 02/23/22 18:46 Carlos/IV: Voiding Method Toilet Active Medications - Current Medications Current Medications: Generic Name Dose Route Start Last Admin Trade Name Freq PRN Reason Stop Dose Admin Acetaminophen 650 mg 02/23/22 19:56 Acetaminophen 325 Mg Tab PO Q4H PRN Pain MILD(1-3)/Fever >100.5/MAYA Albuterol 2.5 mg 02/23/22 19:56 Albuterol 2.5 Mg/3 Ml Nebu IH Q4HRT PRN Shortness Of Breath Diclofenac Sodium 25 mg 02/23/22 19:58 Diclofenac Ec 25 Mg Tab PO TID PRN pain Famotidine 20 mg 02/23/22 22:00 02/24/22 09:21 Famotidine 20 Mg Tab PO 20 mg BID JASON Administration Azithromycin 500 mg in 250 mls @ 250 mls/hr 02/23/22 20:00 02/23/22 20:03 Zithromax/Ns IV 02/24/22 23:59 Not Given Q24H JASON Lisinopril 2.5 mg 02/24/22 10:00 02/24/22 09:22 Lisinopril 5 Mg Tab PO 2.5 mg QDAY JASON Administration Methocarbamol 500 mg 02/23/22 19:58 Methocarbamol 500 Mg Tab PO BID PRN muscle spasm/pain Methylprednisolone Sodium Succinate 40 mg 02/24/22 04:00 02/24/22 11:35 Methylprednisolone Sod Succinate 40 Mg/1 Ml Inj IV 40 mg Q8H JASON Administration Morphine Sulfate 2 mg 02/23/22 19:56 Morphine 4 Mg/1 Ml Inj IV Q14H PRN Pain , Severe (7-10) Ondansetron HCl 4 mg 02/23/22 19:56 Ondansetron 4 Mg/2 Ml Inj IV Q8H PRN Nausea And Vomiting Oxycodone/Acetaminophen 1 tab 02/23/22 19:56 02/24/22 03:08 Oxycodone /Acetaminophen 5-325mg Tab PO 1 tab Q6H PRN Administration Pain, Moderate (4-6) Sodium Chloride 10 ml 02/23/22 22:00 02/24/22 09:22 Sodium Chloride 0.9% 10 Ml Flush Syringe IV 10 ml BID JASON Administration Sodium Chloride 10 ml 02/23/22 19:56 Sodium Chloride 0.9% 10 Ml Flush Syringe IV PRN PRN LINE FLUSH Nutrition/Malnutrition Assess - Dietary Evaluation Nutrition/Malnutrition Findings: Nutrition Notes Start: 02/24/22 13:43 Freq: Status: Active Protocol: Document 02/24/22 13:43 CM (Rec: 02/24/22 13:47 CM [id number]) Co-Sign 02/24/22 13:43 WW Nutrition Notes Need for Assessment generated from: customer engagement analyst Initial or Follow up Brief Note Current Diagnosis Hypertension,Respiratory Failure Other Pertinent Diagnosis SIRS Current Diet Regular Diet Labs/Tests 02/24: Cl 95.7 Pertinent Medications 02/24: Reviewed Height 5 ft 11 in Weight 106.3 kg [place] Body Weight (kg) 78.18 BMI 32.6 Intake Prior to Admission Good Weight change and time frame No unintentional wt loss MUSEUM PREPARATOR per malnutrition screening tool assessment and pt. Weight Status Obese Subjective/Other Information RD consult for skin risk assessment. Pt reported no breakdown or concerns for integumentary system. RN verified pt's skin is WNL. Appetite increasing and consumed 75% dinner 02/23 / 75% breakfast 02/24 per pt. No nutritional concerns at this time. Burn Absent Trauma Absent GI Symptoms None Food Allergy No Skin Integrity/Comment WNL - no concerns per RN Current % PO Good (75-100%) Minimum of two criteria No Fluid Accumulation N/A Reduced Bilingual Sales Consultant Strength N/A (non-severe) Protein-Calorie Malnutrition N\A Nutrition Intervention Revisit per MD consult or patient Sign Off request: Additional Comments Monitor need for further nutritional assessment.
[2022-02-24] MEDS: ALBUTEROL 2.5 MG/3 ML NEBU IH PRN (19:41)
[2022-02-24] MEDS: AZITHROMYCIN/NS 500 MG/250 ML 500 MG/250 ML BAG IV SCH (21:06)
[2022-02-25] MEDS: methylPREDNISolone Sod Succinate 40 MG/1 ML INJ IV SCH ×3 (04:27→21:20)
[2022-02-25] MEDS: LISINOPRIL 5 MG TAB PO SCH (08:59)
[2022-02-25] MEDS: FAMOTIDINE 20 MG TAB PO SCH ×2 (08:59→21:20)
[2022-02-25] MEDS: hydroCHLOROthiazide 12.5 MG CAP PO SCH (14:54)
--- NOTE | 2022-02-25 19:45 | Progress Note ---
Assessment and Plan Assessment and plan: 41 YO Male with Obesity, HTN and asthma in childhood presents ED for evaluation. Patient was diagnosed COPD about 5 years ago and he never smoked tobacco products. However smoking marijuana regularly since several years and currently trying to quit. Patient reports having sudden onset cough, green sputum, wheezing and difficulty breathing since 2 days after spent couple of hours outdoors under hot sun with his daughter 2 days ago. Patient knowledges increased use of nebulizer therapy without relief. As result patient failed outpatient therapy. EMS was notified and upon arrival the patient was found to be in distress and using accessory muscles to breathe. All lab and imaging studies reviewed. Patient is tripoding, using accessory muscles to breathe, unable to speak in complete sentences, retracting. Patient found to have a pulse oximetry of 81% on room air which is consistent with acute hypoxemic respiratory failure suspected secondary to status asthmaticus, and systemic inflammatory response syndrome. Patient admitted to medical floor and treated in accordance with asthma exacerbation protocol. Patient treated with IV steroid therapy with mild improvement in symptoms. No reports of fever, chills, chest pain, palpitation, skin rash and recent contact, known exposure to COVID- 19. (1) acute asthma exacerbation Current Visit: Yes Status: Acute Qualifiers: Asthma severity: moderate Asthma persistence: persistent Qualified Cod e(s): J45.42 - Moderate persistent asthma with status asthmaticus Plan to address problem: Diagnosed with childhood asthma and COPD about 5 years ago but he never smoked tobacco products. However smokes marijuana regularly since several years and currently trying to quit. Patient reports having sudden onset cough, green sputum, wheezing and difficulty breathing since 2 days after spent couple of hours outdoors under hot sun with his daughter 2 days ago. Chest x-ray, supplemental oxygen, pulse oximetry, nebulizer therapy, IV steroid therapy, empiric IV antibiotic therapy, supportive care. Patient reports improvement of symptoms since admitted, able to converse fairly comfortably currently. (2) Acute hypoxemic respiratory failure Current Visit: Yes Status: Acute Plan to address problem: Likely from acute asthma/COPD exacerbation. Never needed home O2. Wean O2 as tolerated. Chest x-ray, supplemental oxygen, pulse oximetry, nebulizer therapy, noninvasive positive pressure ventilation as clinically indicated. (3) SIRS (systemic inflammatory response syndrome) Current Visit: Yes Status: Acute Plan to address problem: Empiric IV antibiotic therapy, chest x-ray, CBC, supportive care. (4) Obesity (BMI 30.0-34.9) Current Visit: Yes Status: Acute Plan to address problem: Balanced diet, increase physical activity discharge, outpatient pulmonary follow-up for sleep study. (5) leukocytosis WBC 16 at the time of admission and then 12, improving. Likely reactive. Receiving empiric antibiotic therapy. Tested negative for COVID-19. (6) hypertension Continue home medication and monitor DVT prophylaxis Current Visit: Yes Status: Acute Plan to address problem: SCD to bilateral lower extremities while in bed Advance care planning Current Visit: Yes Status: Acute Plan to address problem: Disease education done, care plan discussed, diagnoses discussed, prognosis discussed, patient is full code. Disposition: Symptoms will be improving, remains on IV Solu-Medrol, wean O2 as tolerated since never needed home O2. Possible discharge in 1 to 2 days. Discussed with the patient. History Interval history: Patient reports improvement of wheezing and dyspnea. He continues to have cough spells and green sputum though also improving. Remains on IV Solu-Medrol and nebs. Hospitalist Physical - Constitutional Vitals: Temp Pulse Resp BP Pulse Ox 98.2 F 97 H 24 147/98 94 02/25/22 17:50 02/25/22 17:50 02/25/22 17:50 02/25/22 17:50 02/25/22 17:50 General appearance: Present: mild distress, obese - EENT Eyes: Present: PERRL ENT: hearing intact, clear oral mucosa - Neck Neck: Present: supple - Respiratory Respiratory effort: normal Respiratory: bilateral: diminished, wheezing (Improving) - Cardiovascular Rhythm: regular - Extremities Extremities: No edema - Abdominal General gastrointestinal: soft, non-tender - Integumentary Integumentary: Absent: rash - Psychiatric Psychiatric: appropriate mood/affect - Neurologic Neurologic: no focal deficits Results - Labs CBC & Chem 7: 02/24/22 05:58 02/24/22 05:58 Labs: Laboratory Last Values WBC 12.6 K/mm3 (4.5-11.0) H 02/24/22 05:58 RBC 4.39 M/mm3 (3.65-5.03) 02/24/22 05:58 Hgb 14.3 gm/dl (11.8-15.2) 02/24/22 05:58 Hct 42.8 % (35.5-45.6) 02/24/22 05:58 MCV 97 fl (84-94) H 02/24/22 05:58 MCH 33 pg (28-32) H 02/24/22 05:58 MCHC 33 % (32-34) 02/24/22 05:58 RDW 14.2 % (13.2-15.2) 02/24/22 05:58 Plt Count 326 K/mm3 (140-440) 02/24/22 05:58 Lymph % (Auto) 3.0 % (13.4-35.0) L 02/23/22 18:46 Long % (Auto) 8.3 % (0.0-7.3) H 02/23/22 18:46 Eos % (Auto) 0.0 % (0.0-4.3) 02/23/22 18:46 Baso % (Auto) 0.4 % (0.0-1.8) 02/23/22 18:46 Lymph # (Auto) 0.5 K/mm3 (1.2-5.4) L 02/23/22 18:46 Long # (Auto) 1.3 K/mm3 (0.0-0.8) H 02/23/22 18:46 Eos # (Auto) 0.0 K/mm3 (0.0-0.4) 02/23/22 18:46 Baso # (Auto) 0.1 K/mm3 (0.0-0.1) 02/23/22 18:46 Add Manual Diff Complete 02/24/22 05:58 Total Counted 100 02/24/22 05:58 Seg Neutrophils % Material Dispatcher 02/24/22 05:58 Seg Neuts % (Manual) 86.0 % (40.0-70.0) H 02/24/22 05:58 Band Neutrophils % 4.0 % 02/24/22 05:58 Lymphocytes % (Manual) 4.0 % (13.4-35.0) L 02/24/22 05:58 Reactive Lymphs % (Man) 1.0 % 02/24/22 05:58 Monocytes % (Manual) 5.0 % (0.0-7.3) 02/24/22 05:58 Eosinophils % (Manual) 0 % (0.0-4.3) 02/24/22 05:58 Basophils % (Manual) 0 % (0.0-1.8) 02/24/22 05:58 Metamyelocytes % 0 % 02/24/22 05:58 Myelocytes % 0 % 02/24/22 05:58 Promyelocytes % 0 % 02/24/22 05:58 Blast Cells % 0 % 02/24/22 05:58 Nucleated RBC % Not Reportable 02/24/22 05:58 Seg Neutrophils # 14.1 K/mm3 (1.8-7.7) H 02/23/22 18:46 Seg Neutrophils # Man 10.8 K/mm3 (1.8-7.7) H 02/24/22 05:58 Band Neutrophils # 0.5 K/mm3 02/24/22 05:58 Lymphocytes # (Manual) 0.5 K/mm3 (1.2-5.4) L 02/24/22 05:58 Abs React Lymphs (Man) 0.1 K/mm3 02/24/22 05:58 Monocytes # (Manual) 0.6 K/mm3 (0.0-0.8) 02/24/22 05:58 Eosinophils # (Manual) 0.0 K/mm3 (0.0-0.4) 02/24/22 05:58 Basophils # (Manual) 0.0 K/mm3 (0.0-0.1) 02/24/22 05:58 Metamyelocytes # 0.0 K/mm3 02/24/22 05:58 Myelocytes # 0.0 K/mm3 02/24/22 05:58 Promyelocytes # 0.0 K/mm3 02/24/22 05:58 Blast Cells # 0.0 K/mm3 02/24/22 05:58 WBC Morphology Not Reportable 02/24/22 05:58 Hypersegmented Neuts Not Reportable 02/24/22 05:58 Hyposegmented Neuts Not Reportable 02/24/22 05:58 Hypogranular Neuts Not Reportable 02/24/22 05:58 Smudge Cells Not Reportable 02/24/22 05:58 Toxic Granulation Not Reportable 02/24/22 05:58 Toxic Vacuolation Not Reportable 02/24/22 05:58 Dohle Bodies Not Reportable 02/24/22 05:58 Pelger-Huet Anomaly Not Reportable 02/24/22 05:58 Lana Rods Not Reportable 02/24/22 05:58 Platelet Estimate Consistent w auto 02/24/22 05:58 Clumped Platelets Not Reportable 02/24/22 05:58 Plt Clumps, EDTA Not Reportable 02/24/22 05:58 Large Platelets Few 02/24/22 05:58 Giant Platelets Not Reportable 02/24/22 05:58 Platelet Satelliting Not Reportable 02/24/22 05:58 Plt Morphology Comment Not Reportable 02/24/22 05:58 RBC Morphology Normal 02/24/22 05:58 Dimorphic RBCs Not Reportable 02/24/22 05:58 Polychromasia Not Reportable 02/24/22 05:58 Hypochromasia Not Reportable 02/24/22 05:58 Poikilocytosis Not Reportable 02/24/22 05:58 Anisocytosis Not Reportable 02/24/22 05:58 Microcytosis Not Reportable 02/24/22 05:58 Macrocytosis Not Reportable 02/24/22 05:58 Spherocytes Not Reportable 02/24/22 05:58 Pappenheimer Bodies Not Reportable 02/24/22 05:58 Sickle Cells Not Reportable 02/24/22 05:58 Target Cells Not Reportable 02/24/22 05:58 Tear Drop Cells Not Reportable 02/24/22 05:58 Ovalocytes Not Reportable 02/24/22 05:58 Helmet Cells Not Reportable 02/24/22 05:58 Lozano-[place] Bodies Not Reportable 02/24/22 05:58 Hanson Rings Not Reportable 02/24/22 05:58 Bhavya Cells Not Reportable 02/24/22 05:58 Bite Cells Not Reportable 02/24/22 05:58 Crenated Cell Not Reportable 02/24/22 05:58 Elliptocytes Not Reportable 02/24/22 05:58 Acanthocytes (Spur) Not Reportable 02/24/22 05:58 Rouleaux Not Reportable 02/24/22 05:58 Hemoglobin C Crystals Not Reportable 02/24/22 05:58 Schistocytes Not Reportable 02/24/22 05:58 Malaria parasites Not Reportable 02/24/22 05:58 Chris Bodies Not Reportable 02/24/22 05:58 Hem Pathologist Commnt No 02/24/22 05:58 Sodium 140 mmol/L (137-145) 02/24/22 05:58 Potassium 4.0 mmol/L (3.6-5.0) 02/24/22 05:58 Chloride 95.7 mmol/L (98-107) L 02/24/22 05:58 Carbon Dioxide 30 mmol/L (22-30) 02/24/22 05:58 Anion Gap 18 mmol/L 02/24/22 05:58 BUN 19 mg/dL (9-20) 02/24/22 05:58 Creatinine 1.0 mg/dL (0.8-1.3) 02/24/22 05:58 Estimated GFR > 60 ml/min 02/24/22 05:58 BUN/Creatinine Ratio 19 % 02/24/22 05:58 Glucose 145 mg/dL (75-100) H 02/24/22 05:58 Calcium 9.3 mg/dL (8.4-10.2) 02/24/22 05:58 Total Bilirubin 0.70 mg/dL (0.1-1.2) 02/23/22 18:46 AST 23 units/L (5-40) 02/23/22 18:46 ALT 35 units/L (7-56) 02/23/22 18:46 Alkaline Phosphatase 118 units/L (35-129) 02/23/22 18:46 NT-Pro-B Natriuret Pep 174.6 pg/mL (0-450) 02/23/22 18:46 Total Protein 7.4 g/dL (6.3-8.2) 02/23/22 18:46 Albumin 4.3 g/dL (3.9-5) 02/23/22 18:46 Albumin/Globulin Ratio 1.4 % 02/23/22 18:46 Carlos/IV: Voiding Method Toilet Active Medications - Current Medications Current Medications: Generic Name Dose Route Start Last Admin Trade Name Freq PRN Reason Stop Dose Admin Acetaminophen 650 mg 02/23/22 19:56 02/25/22 08:54 Acetaminophen 325 Mg Tab PO 650 mg Q4H PRN Administration Pain MILD(1-3)/Fever >100.5/MAYA Albuterol 2.5 mg 02/23/22 19:56 02/24/22 19:41 Albuterol 2.5 Mg/3 Ml Nebu IH 2.5 mg Q4HRT PRN Administration Shortness Of Breath Diclofenac Sodium 25 mg 02/23/22 19:58 Diclofenac Ec 25 Mg Tab PO TID PRN pain Famotidine 20 mg 02/23/22 22:00 02/25/22 08:59 Famotidine 20 Mg Tab PO 20 mg BID JASON Administration Hydrochlorothiazide 12.5 mg 02/25/22 15:00 02/25/22 14:54 Hydrochlorothiazide 12.5 Mg Cap PO 12.5 mg QDAY JAOSN Administration Lisinopril 2.5 mg 02/24/22 10:00 02/25/22 08:59 Lisinopril 5 Mg Tab PO 2.5 mg QDAY JASON Administration Methocarbamol 500 mg 02/23/22 19:58 Methocarbamol 500 Mg Tab PO BID PRN muscle spasm/pain Methylprednisolone Sodium Succinate 40 mg 02/24/22 04:00 02/25/22 12:22 Methylprednisolone Sod Succinate 40 Mg/1 Ml Inj IV 40 mg Q8H JASON Administration Ondansetron HCl 4 mg 02/23/22 19:56 Ondansetron 4 Mg/2 Ml Inj IV Q8H PRN Nausea And Vomiting Sodium Chloride 10 ml 02/23/22 22:00 02/25/22 09:02 Sodium Chloride 0.9% 10 Ml Flush Syringe IV 10 ml BID JASON Administration Sodium Chloride 10 ml 02/23/22 19:56 Sodium Chloride 0.9% 10 Ml Flush Syringe IV PRN PRN LINE FLUSH Nutrition/Malnutrition Assess - Dietary Evaluation Nutrition/Malnutrition Findings: Nutrition Notes Start: 02/24/22 13:43 Freq: Status: Active Protocol: Document 02/24/22 13:43 CM (Rec: 02/24/22 13:47 CM [email or web address]) Co-Sign 02/24/22 13:43 WW Nutrition Notes Need for Assessment generated from: recoverer Initial or Follow up Brief Note Current Diagnosis Hypertension,Respiratory Failure Other Pertinent Diagnosis SIRS Current Diet Regular Diet Labs/Tests 02/24: Cl 95.7 Pertinent Medications 02/24: Reviewed Height 5 ft 11 in Weight 106.3 kg [place] Body Weight (kg) 78.18 BMI 32.6 Intake Prior to Admission Good Weight change and time frame No 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 Weight Status Obese Subjective/Other Information RD consult for skin risk assessment. Pt reported no breakdown or concerns for integumentary system. RN verified pt's skin is WNL. Appetite increasing and consumed 75% dinner 02/23 / 75% breakfast 02/24 per pt. No nutritional concerns at this time. 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
[2022-02-26] MEDS: methylPREDNISolone Sod Succinate 40 MG/1 ML INJ IV SCH ×3 (04:28→21:24)
[2022-02-26] MEDS: ALBUTEROL 2.5 MG/3 ML NEBU IH PRN (04:40)
[2022-02-26] MEDS: LISINOPRIL 5 MG TAB PO SCH (09:38)
[2022-02-26] MEDS: hydroCHLOROthiazide 12.5 MG CAP PO SCH (09:39)
[2022-02-26] MEDS: FAMOTIDINE 20 MG TAB PO SCH ×2 (09:39→21:24)
--- NOTE | 2022-02-26 11:24 | Progress Note ---
Assessment and Plan Assessment and plan: 41 YO Male with Obesity, HTN and asthma in childhood presents ED for evaluation. Patient was diagnosed COPD about 5 years ago and he never smoked tobacco products. However smoking marijuana regularly since several years and currently trying to quit. Patient reports having sudden onset cough, green sputum, wheezing and difficulty breathing since 2 days after spent couple of hours outdoors under hot sun with his daughter 2 days ago. Patient knowledges increased use of nebulizer therapy without relief. As result patient failed outpatient therapy. EMS was notified and upon arrival the patient was found to be in distress and using accessory muscles to breathe. All lab and imaging studies reviewed. Patient is tripoding, using accessory muscles to breathe, unable to speak in complete sentences, retracting. Patient found to have a pulse oximetry of 81% on room air which is consistent with acute hypoxemic respiratory failure suspected secondary to status asthmaticus, and systemic inflammatory response syndrome. Patient admitted to medical floor and treated in accordance with asthma exacerbation protocol. Patient treated with IV steroid therapy with mild improvement in symptoms. No reports of fever, chills, chest pain, palpitation, skin rash and recent contact, known exposure to COVID- 19. #Acute asthma exacerbationimproving Diagnosed with childhood asthma and COPD about 5 years ago but he never smoked tobacco products. However smokes marijuana regularly since several years and currently trying to quit. Patient reports having sudden onset cough, green sputum, wheezing and difficulty breathing since 2 days after spent couple of hours outdoors under hot sun with his daughter 2 days ago. Chest x-ray, supplemental oxygen, pulse oximetry, nebulizer therapy, IV steroid therapy, empiric IV antibiotic therapy, supportive care. Patient reports improvement of symptoms since admitted, able to converse fairly comfortably currently. #Acute hypoxemic respiratory failureimproving Likely from acute asthma/COPD exacerbation. Never needed home O2. Wean O2 as tolerated (currently on 2 L nasal cannula)baseline of room air. Chest x-ray, supplemental oxygen, pulse oximetry, nebulizer therapy, noninvasive positive pressure ventilation as clinically indicated. #SIRS (systemic inflammatory response syndrome) Empiric IV antibiotic therapy, chest x-ray, CBC, supportive care. WBC 16 at the time of admission and then 12, improving. Likely reactive. Receiving empiric antibiotic therapy. Tested negative for COVID-19. #Hypertension - home medications: Lisinopril 2.5 mg daily - current medications: Losartan 50 mg daily and nifedipine 30 mg daily - SBP goal <160 and DBP goal <90 while inpatient - continue to monitor #Obesity #Weight loss counseling #Exercise counseling - BMI 32.7 - Counseled patient on the importance of weight loss, incorporating exercise, and dietary changes (lean meats, fresh fruits and vegetables, and water intake). Patient expresses understanding. - Time: +15 min #Advanced care planning -Disease education conducted, care plan discussed, diagnoses discussed, prognosis discussed, and patient acknowledges understanding with care plan -Time: +30 min #Discharge planning - Patient is pending resolution of acute hypoxic respiratory failure. - Case management has been made aware. - Discharge is tentatively 24-48 hours. Disposition Plan: Continue medical management Total Time Spent with Patient (Minutes): 45 minutes History Interval history: No acute events overnight Hospitalist Physical - Constitutional Vitals: Temp Pulse Resp BP Pulse Ox 97.8 F 98 H 20 160/117 84 02/26/22 04:08 02/26/22 04:47 02/26/22 04:47 02/26/22 09:38 02/26/22 04:08 General appearance: Present: no acute distress, well-nourished, obese - EENT Eyes: Present: PERRL, EOM intact ENT: hearing intact, clear oral mucosa, dentition normal - Neck Neck: Present: supple, normal ROM - Respiratory Respiratory effort: normal Respiratory: bilateral: diminished (On 2 L nasal cannula) - Cardiovascular Rhythm: regular Heart Sounds: Present: S1 & S2 - Extremities Extremities: no ischemia, pulses intact, pulses symmetrical, No edema, normal temperature, normal color, Full ROM Peripheral Pulses: within normal limits - Abdominal General gastrointestinal: soft, non-tender, non-distended, normal bowel sounds - Integumentary Integumentary: Present: clear, warm, dry - Psychiatric Psychiatric: appropriate mood/affect, intact judgment & insight, memory intact, cooperative - Neurologic Neurologic: CNII-XII intact, moves all extremities - Allied Health Allied health notes reviewed: nursing Results - Labs CBC & Chem 7: 02/24/22 05:58 02/24/22 05:58 Labs: Laboratory Last Values WBC 12.6 K/mm3 (4.5-11.0) H 02/24/22 05:58 RBC 4.39 M/mm3 (3.65-5.03) 02/24/22 05:58 Hgb 14.3 gm/dl (11.8-15.2) 02/24/22 05:58 Hct 42.8 % (35.5-45.6) 02/24/22 05:58 MCV 97 fl (84-94) H 02/24/22 05:58 MCH 33 pg (28-32) H 02/24/22 05:58 MCHC 33 % (32-34) 02/24/22 05:58 RDW 14.2 % (13.2-15.2) 02/24/22 05:58 Plt Count 326 K/mm3 (140-440) 02/24/22 05:58 Lymph % (Auto) 3.0 % (13.4-35.0) L 02/23/22 18:46 [place]field % (Auto) 8.3 % (0.0-7.3) H 02/23/22 18:46 Eos % (Auto) 0.0 % (0.0-4.3) 02/23/22 18:46 Baso % (Auto) 0.4 % (0.0-1.8) 02/23/22 18:46 Lymph # (Auto) 0.5 K/mm3 (1.2-5.4) L 02/23/22 18:46 [place]field # (Auto) 1.3 K/mm3 (0.0-0.8) H 02/23/22 18:46 Eos # (Auto) 0.0 K/mm3 (0.0-0.4) 02/23/22 18:46 Baso # (Auto) 0.1 K/mm3 (0.0-0.1) 02/23/22 18:46 Add Manual Diff Complete 02/24/22 05:58 Total Counted 100 02/24/22 05:58 Seg Neutrophils % [employer] 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 02/24/22 05:58 Seg Neuts % (Manual) 86.0 % (40.0-70.0) H 02/24/22 05:58 Band Neutrophils % 4.0 % 02/24/22 05:58 Lymphocytes % (Manual) 4.0 % (13.4-35.0) L 02/24/22 05:58 Reactive Lymphs % (Man) 1.0 % 02/24/22 05:58 Monocytes % (Manual) 5.0 % (0.0-7.3) 02/24/22 05:58 Eosinophils % (Manual) 0 % (0.0-4.3) 02/24/22 05:58 Basophils % (Manual) 0 % (0.0-1.8) 02/24/22 05:58 Metamyelocytes % 0 % 02/24/22 05:58 Myelocytes % 0 % 02/24/22 05:58 Promyelocytes % 0 % 02/24/22 05:58 Blast Cells % 0 % 02/24/22 05:58 Nucleated RBC % Not Reportable 02/24/22 05:58 Seg Neutrophils # 14.1 K/mm3 (1.8-7.7) H 02/23/22 18:46 Seg Neutrophils # Man 10.8 K/mm3 (1.8-7.7) H 02/24/22 05:58 Band Neutrophils # 0.5 K/mm3 02/24/22 05:58 Lymphocytes # (Manual) 0.5 K/mm3 (1.2-5.4) L 02/24/22 05:58 Abs React Lymphs (Man) 0.1 K/mm3 02/24/22 05:58 Monocytes # (Manual) 0.6 K/mm3 (0.0-0.8) 02/24/22 05:58 Eosinophils # (Manual) 0.0 K/mm3 (0.0-0.4) 02/24/22 05:58 Basophils # (Manual) 0.0 K/mm3 (0.0-0.1) 02/24/22 05:58 Metamyelocytes # 0.0 K/mm3 02/24/22 05:58 Myelocytes # 0.0 K/mm3 02/24/22 05:58 Promyelocytes # 0.0 K/mm3 02/24/22 05:58 Blast Cells # 0.0 K/mm3 02/24/22 05:58 WBC Morphology Not Reportable 02/24/22 05:58 Hypersegmented Neuts Not Reportable 02/24/22 05:58 Hyposegmented Neuts Not Reportable 02/24/22 05:58 Hypogranular Neuts Not Reportable 02/24/22 05:58 Smudge Cells Not Reportable 02/24/22 05:58 Toxic Granulation Not Reportable 02/24/22 05:58 Toxic Vacuolation Not Reportable 02/24/22 05:58 Dohle Bodies Not Reportable 02/24/22 05:58 Pelger-Huet Anomaly Not Reportable 02/24/22 05:58 Lana Rods Not Reportable 02/24/22 05:58 Platelet Estimate Consistent w auto 02/24/22 05:58 Clumped Platelets Not Reportable 02/24/22 05:58 Plt Clumps, EDTA Not Reportable 02/24/22 05:58 Large Platelets Few 02/24/22 05:58 Giant Platelets Not Reportable 02/24/22 05:58 Platelet Satelliting Not Reportable 02/24/22 05:58 Plt Morphology Comment Not Reportable 02/24/22 05:58 RBC Morphology Normal 02/24/22 05:58 Dimorphic RBCs Not Reportable 02/24/22 05:58 Polychromasia Not Reportable 02/24/22 05:58 Hypochromasia Not Reportable 02/24/22 05:58 Poikilocytosis Not Reportable 02/24/22 05:58 Anisocytosis Not Reportable 02/24/22 05:58 Microcytosis Not Reportable 02/24/22 05:58 Macrocytosis Not Reportable 02/24/22 05:58 Spherocytes Not Reportable 02/24/22 05:58 Pappenheimer Bodies Not Reportable 02/24/22 05:58 Sickle Cells Not Reportable 02/24/22 05:58 Target Cells Not Reportable 02/24/22 05:58 Tear Drop Cells Not Reportable 02/24/22 05:58 Ovalocytes Not Reportable 02/24/22 05:58 Helmet Cells Not Reportable 02/24/22 05:58 Lozano-Clarington Bodies Not Reportable 02/24/22 05:58 Mcconnell Rings Not Reportable 02/24/22 05:58 [place] Cells Not Reportable 02/24/22 05:58 Bite Cells Not Reportable 02/24/22 05:58 Crenated Cell Not Reportable 02/24/22 05:58 Elliptocytes Not Reportable 02/24/22 05:58 Acanthocytes (Spur) Not Reportable 02/24/22 05:58 Rouleaux Not Reportable 02/24/22 05:58 Hemoglobin C Crystals Not Reportable 02/24/22 05:58 Schistocytes Not Reportable 02/24/22 05:58 Malaria parasites Not Reportable 02/24/22 05:58 Chris Bodies Not Reportable 02/24/22 05:58 Hem Pathologist Commnt No 02/24/22 05:58 Sodium 140 mmol/L (137-145) 02/24/22 05:58 Potassium 4.0 mmol/L (3.6-5.0) 02/24/22 05:58 Chloride 95.7 mmol/L (98-107) L 02/24/22 05:58 Carbon Dioxide 30 mmol/L (22-30) 02/24/22 05:58 Anion Gap 18 mmol/L 02/24/22 05:58 BUN 19 mg/dL (9-20) 02/24/22 05:58 Creatinine 1.0 mg/dL (0.8-1.3) 02/24/22 05:58 Estimated GFR > 60 ml/min 02/24/22 05:58 BUN/Creatinine Ratio 19 % 02/24/22 05:58 Glucose 145 mg/dL (75-100) H 02/24/22 05:58 Calcium 9.3 mg/dL (8.4-10.2) 02/24/22 05:58 Total Bilirubin 0.70 mg/dL (0.1-1.2) 02/23/22 18:46 AST 23 units/L (5-40) 02/23/22 18:46 ALT 35 units/L (7-56) 02/23/22 18:46 Alkaline Phosphatase 118 units/L (35-129) 02/23/22 18:46 NT-Pro-B Natriuret Pep 174.6 pg/mL (0-450) 02/23/22 18:46 Total Protein 7.4 g/dL (6.3-8.2) 02/23/22 18:46 Albumin 4.3 g/dL (3.9-5) 02/23/22 18:46 Albumin/Globulin Ratio 1.4 % 02/23/22 18:46 Carlos/IV: Voiding Method Toilet Active Medications - Current Medications Current Medications: Generic Name Dose Route Start Last Admin Trade Name Freq PRN Reason Stop Dose Admin Acetaminophen 650 mg 02/23/22 19:56 02/25/22 08:54 Acetaminophen 325 Mg Tab PO 650 mg Q4H PRN Administration Pain MILD(1-3)/Fever >100.5/MAYA Albuterol 2.5 mg 02/23/22 19:56 02/26/22 04:40 Albuterol 2.5 Mg/3 Ml Nebu IH 2.5 mg Q4HRT PRN Administration Shortness Of Breath Diclofenac Sodium 25 mg 02/23/22 19:58 Diclofenac Ec 25 Mg Tab PO TID PRN pain Famotidine 20 mg 02/23/22 22:00 02/26/22 09:39 Famotidine 20 Mg Tab PO 20 mg BID JASON Administration Hydrochlorothiazide 12.5 mg 02/25/22 15:00 02/26/22 09:39 Hydrochlorothiazide 12.5 Mg Cap PO 12.5 mg QDAY JASON Administration Lisinopril 2.5 mg 02/24/22 10:00 02/26/22 09:38 Lisinopril 5 Mg Tab PO 2.5 mg QDAY JASON Administration Methocarbamol 500 mg 02/23/22 19:58 02/25/22 21:25 Methocarbamol 500 Mg Tab PO 500 mg BID PRN Administration muscle spasm/pain Methylprednisolone Sodium Succinate 40 mg 02/24/22 04:00 02/26/22 04:28 Methylprednisolone Sod Succinate 40 Mg/1 Ml Inj IV 40 mg Q8H JASON Administration Ondansetron HCl 4 mg 02/23/22 19:56 Ondansetron 4 Mg/2 Ml Inj IV Q8H PRN Nausea And Vomiting Sodium Chloride 10 ml 02/23/22 22:00 02/26/22 09:40 Sodium Chloride 0.9% 10 Ml Flush Syringe IV 10 ml BID JASON Administration Sodium Chloride 10 ml 02/23/22 19:56 Sodium Chloride 0.9% 10 Ml Flush Syringe IV PRN PRN LINE FLUSH Nutrition/Malnutrition Assess - Dietary Evaluation Nutrition/Malnutrition Findings: Nutrition Notes Start: 02/24/22 13:43 Freq: Status: Active Protocol: Document 02/24/22 13:43 CM (Rec: 02/24/22 13:47 CM [id number]) Co-Sign 02/24/22 13:43 WW Nutrition Notes 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 Weight Status Obese Subjective/Other Information RD consult for skin risk assessment. Pt reported no breakdown or concerns for integumentary system. RN verified pt's skin is WNL. Appetite increasing and consumed 75% dinner 02/23 / 75% breakfast 02/24 per pt. No nutritional concerns at this time. Burn Absent Trauma Absent GI Symptoms None Food Allergy No Skin Integrity/Comment WNL - no concerns per RN Current % PO Good (75-100%) Minimum of two criteria No Fluid Accumulation N/A Reduced Coding Analyst Strength N/A (non-severe) Protein-Calorie Malnutrition N\A Nutrition Intervention Revisit per MD consult or patient Sign Off request: Additional Comments Monitor need for further nutritional assessment.
[2022-02-26] MEDS ORDERED: NIFEdipine XL 30 MG TAB PO SCH (12:00)
[2022-02-26] MEDS ORDERED: LOSARTAN 50 MG TAB PO SCH (12:00)
[2022-02-26 21:03] VITALS: BP 150/98
== END 2022-02-26 22:49 | disposition home or self-care (01) | DRG 189 ==
LOC: ED 14:08 → 3A 19:56
PROVIDERS: ADMIT Internal Medicine; ATTEND Student in an Organized Health Care Education/Training Program
DX: J96.01 Acute respiratory failure with hypoxia (principal); R65.10 Systemic inflammatory response syndrome (SIRS) of non-infectious origin without acute organ dysfunction; J45.41 Moderate persistent asthma with (acute) exacerbation; E66.01 Morbid (severe) obesity due to excess calories; Z68.30 Body mass index [BMI] 30.0-30.9, adult; I10 Essential (primary) hypertension; Z88.0 Allergy status to penicillin
CPT/HCPCS: 36415; 71045; 80048; 80053; 83880; 85007; 85025; 93005; 94640; 94760; 96374; 99285; G0378; J0456; J2920